=== PATIENT | male | born 1935 ===

== ENCOUNTER 2021-01-19 07:28 | Outpatient (REF) | payer MEDICARE, SELFPAY ==
--- NOTE | 2021-01-19 07:57 | ECG_ITS ---
Test Reason : Z13.9 Blood Pressure : / mmHG Vent. Rate : 060 BPM Atrial Rate : 060 BPM P-R Int : 174 ms QRS Dur : 128 ms QT Int : 436 ms P-R-T Axes : 055 -71 055 degrees QTc Int : 436 ms Normal sinus rhythm Right bundle branch block Left anterior fascicular block Bifascicular block Abnormal ECG No previous ECGs available Referred By: Shahzad Palomares Electronically Signed By:SHEILA WALKER
[2021-01-19 09:26] LABS: Hematocrit 37.8 % (42-52); Hemoglobin 12.2 g/dl (14.0-18.0); Mean Corpuscular HGB Conc 32.3 g/dl (31.0-36.0); Mean Corpuscular Hemoglobin 31.9 pg (27.0-33.0); Mean Platelet Volume 9.5 fL (9.4-12.4); Platelet Count 386 X10*3/uL (160-400); Red Blood Count 3.82 X10*6/uL (4.60-5.80); Red Cell Distribution Width 13.9 % (11.0-16.0); White Blood Count 8.9 X10*3/uL (4.8-10.8)
[2021-01-19 09:50] LABS: Alanine Aminotransferase 128 U/L (0-40); Albumin Level 3.6 g/dL (3.5-5.0); Alkaline Phosphatase 691 U/L (39-117); Anion Gap 12 (12-20); Aspartate Amino Transferase 97 U/L (5-37); Bilirubin Total 1.3 mg/dL (0.0-1.0); Blood Urea Nitrogen 17 mg/dL (9-16); Calcium 9.2 mg/dL (8.4-10.2); Carbon Dioxide 28 mmol/L (22-29); Chloride 106 mmol/L (96-108); Cholesterol 226 mg/dL; Estimated Glomerular Filt Rate 57; Glucose Fasting 89 mg/dL (60-99); HDL Cholesterol 73 mg/dL; LDL Cholesterol Calculated 142 mg/dl; Potassium 4.5 mmol/L (3.3-5.1); Sodium 141 mmol/L (135-145); Total Protein 6.1 g/dL (6.5-8.0); Triglycerides 58 mg/dL
[2021-01-19 10:06] LABS: Thyroid Stimulating Hormone 1.01 uIU/mL (0.32-4.0)
[2021-01-19 11:06] LABS: SLIDE REVIEW MANUAL DIFF
[2021-01-19 11:10] LABS: Band Neutrophils Percent 0 % (3-5); Eosinophils Absolute Manual 0.1 X10*3/UL (0.0-0.8); Eosinophils Percent Manual 1 % (0-4); Lymphocytes Absolute Manual 5.6 X10*3/uL (0.6-4.8); Lymphocytes Percent Manual 63 % (20-40); Monocytes Absolute Manual 0.4 X10*3/uL (0.0-1.2); Monocytes Percent Manual 4 % (2-11); Neutrophils Absolute Manual 2.8 X10*3/uL (2.2-7.9); Neutrophils Percent Manual 32 % (45-73)
[2021-01-19 11:12] LABS: Macrocytosis 1+ (5-14) /OIF; Platelet Estimate NORMAL (NORMAL); Platelet Morphology Comment NORMAL; RBC Morphology NOTED; Smudge Cells PRESENT
== END 2021-01-19 07:29 | disposition home or self-care (01) ==
LOC: HO.LAB 07:28
PROVIDERS: PCP Internal Medicine; Visit Provider Internal Medicine
DX: Z13.9 Encounter for screening, unspecified (principal); E03.9 Hypothyroidism, unspecified; E11.9 Type 2 diabetes mellitus without complications
CPT/HCPCS: 36415; 80053; 80061; 84443; 85007; 85025; 85027; 93005

== ENCOUNTER → 2021-02-21 13:45 | Outpatient (BNVA) | payer MEDICARE, SELFPAY | PROVIDERS: Referring Provider Internal Medicine; Visit Provider Physician Assistant | DX: R10.9 Unspecified abdominal pain (principal); R63.4 Abnormal weight loss; R74.8 Abnormal levels of other serum enzymes | CPT/HCPCS: 99202 ==

== ENCOUNTER 2021-03-08 09:01 | Outpatient (REF) | payer MEDICARE, SELFPAY ==
[2021-03-08 10:35] LABS: MANUAL DIFF FLAG NO
[2021-03-08 10:48] LABS: Basophils Percent Auto 0.4 % (0-2); Eosinophils Absolute Auto 0.3 X10*3/uL (0.0-0.4); Eosinophils Percent Auto 2.8 % (0-4); Hematocrit 35.8 % (42-52); Hemoglobin 11.2 g/dl (14.0-18.0); Imm Gran Abs Auto 0.03 X10*3/uL (0.00-0.03); Imm Gran Pct Auto 0.3 % (0.0-0.4); Mean Corpuscular HGB Conc 31.3 g/dl (31.0-36.0); Mean Corpuscular Volume 99.2 fL (80-98); Mean Platelet Volume 10.2 fL (9.4-12.4); Monocytes Absolute Auto 0.7 X10*3/uL (0.1-1.2); Monocytes Percent Auto 7.7 % (2-11); Neutrophils Absolute Auto 5.4 X10*3/uL (2.0-8.3); Neutrophils Percent Auto 56.8 % (45-73); Platelet Count 334 X10*3/uL (160-400); Red Blood Count 3.61 X10*6/uL (4.60-5.80); Red Cell Distribution Width 14.2 % (11.0-16.0); White Blood Count 9.5 X10*3/uL (4.8-10.8)
[2021-03-08 11:12] LABS: Alanine Aminotransferase 92 U/L (0-40); Albumin Level 3.2 g/dL (3.5-5.0); Alkaline Phosphatase 857 U/L (39-117); Anion Gap 12 (12-20); Aspartate Amino Transferase 104 U/L (5-37); Bilirubin Total 3.3 mg/dL (0.0-1.0); Blood Urea Nitrogen 16 mg/dL (9-16); Calcium 8.5 mg/dL (8.4-10.2); Carbon Dioxide 27 mmol/L (22-29); Chloride 105 mmol/L (96-108); Estimated Glomerular Filt Rate > 60; Gamma Glutamyl Transpeptidase 948 U/L (11-51); Glucose Random 110 mg/dL (60-115); Iron 80 mcg/dL (45-160); Potassium 4.6 mmol/L (3.3-5.1); Sodium 139 mmol/L (135-145)
[2021-03-08 11:26] LABS: Percent Iron Saturation 36 % (15-50); Total Iron Binding Capacity 220 mcg/dL (228-428); Unsaturated Iron Binding 140 ug/dL
[2021-03-08 11:31] LABS: Ferritin 247 ng/mL (20-250); Prostate Specific Antigen Scr 13.12 ng/mL (<0.05-4.0)
[2021-03-10 15:16] LABS: Transglutaminase IgA 1 U/mL
[2021-03-13 21:47] LABS: Endomysial IgA Antibody Negative (Negative)
== END 2021-03-08 09:02 | disposition home or self-care (01) ==
LOC: HO.LAB 09:01
PROVIDERS: PCP Internal Medicine; Visit Provider Physician Assistant
DX: R10.11 Right upper quadrant pain (principal); R19.7 Diarrhea, unspecified; R97.20 Elevated prostate specific antigen [PSA]; R74.8 Abnormal levels of other serum enzymes; D64.9 Anemia, unspecified; Z12.5 Encounter for screening for malignant neoplasm of prostate
CPT/HCPCS: 36415; 80053; 82728; 82977; 83516; 83540; 84153; 85025; 86255; 86256

== ENCOUNTER 2021-03-13 07:59 | Outpatient (REF) | payer MEDICARE, SELFPAY ==
--- NOTE | ~2021-03-13 | CT_ITS ---
EXAMINATION: CT ABDOMEN AND PELVIS WITH CONTRAST CLINICAL INFORMATION: Elevated PSA. COMPARISON: None TECHNIQUE: Multidetector volumetric images were obtained from the superior aspect of the liver through the pubic symphysis following administration 85 mL of Omnipaque 350 intravenous contrast. Sagittal and coronal reformatted images were obtained on the technologist's workstation. Oral contrast: No This CT examination was performed using dose optimization techniques as appropriate, variously including the following: *Automated exposure control *Adjustment of mA and/or kV according to patient size (this includes techniques or standardized protocols for targeted exams where dose is matched to indication/reason for exam; i.e. extremities or head) *Use of iterative reconstruction technique DLP: 297 mGy-cm FINDINGS: LUNG BASES: Minimal atelectatic changes seen in the lung bases. LIVER, GALLBLADDER, AND BILIARY TREE: The liver is normal in size, shape, and attenuation. There is moderate intrahepatic ductal dilatation with a moderate distention of CBD as well. There is a soft tissue density/lesion in the head of the pancreas measuring 1 cm on coronal image 33/4 and axial image 34/3. The gallbladder is distended with no evidence of radiopaque gallstones, gallbladder wall thickening, or obvious pericholecystic inflammatory changes. PANCREAS: The pancreas is unremarkable with normal density. The pancreatic duct is dilated measuring 1.0 cm at the pancreatic head on axial image 31/3. The CBD measures 1 cm at the pancreatic head at the same axial image. The proximal CBD in the khris hepatis measures 1.6 cm on coronal image 27/4 SPLEEN: Unremarkable. ADRENAL GLANDS: Unremarkable. KIDNEYS AND URETERS: The kidneys are normal in size, shape, and attenuation. No hydronephrosis, hydroureter, or calculi seen. No perinephric stranding. There is a mid pole right renal cyst to centimeter and a exophytic cyst lower pole left kidney measuring 3.3 cm. BLADDER: The bladder is unremarkable. GASTROINTESTINAL TRACT: There is moderate stool and gas seen throughout the colon without significant distention. Scattered diverticuli and oral contrast is seen throughout the colon and small bowel loops without distention. No air-fluid levels or free air is seen. The appendix is not visualized with certainty. ABDOMINAL WALL: There is a focal skin thickening above the young licorice measuring a 7 mm in thickness. LYMPH NODES: Normal. VASCULAR: There is atherosclerotic changes of abdominal aorta without aneurysmal dilatation. PELVIC VISCERA: The there is no free fluid or free air. OSSEOUS STRUCTURES: There is vacuum disc phenomenon and degenerative disc changes and spondylosis lower dorsal and lumbar spine. No lytic or sclerotic process seen. 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 CT/CT abdomen pelvis w con IMPRESSION: Moderate constipation without obstruction. Colonic diverticulosis without diverticulitis. Likely pancreatic head mass resulting in dilated common bile duct, pancreatic duct and intrahepatic ducts. Recommend MRCP or ERCP. Bilateral renal cysts.
== END 2021-03-13 08:00 | disposition home or self-care (01) ==
LOC: HO.CT 07:59
PROVIDERS: PCP Internal Medicine; Visit Provider Physician Assistant
DX: R10.9 Unspecified abdominal pain (principal); R97.20 Elevated prostate specific antigen [PSA]; R63.4 Abnormal weight loss
CPT/HCPCS: 74177

== ENCOUNTER → 2021-03-14 13:43 | Outpatient (BNVA) | payer MEDICARE, SELFPAY | PROVIDERS: Visit Provider Physician Assistant | CPT/HCPCS: Q3014 ==

== ENCOUNTER → 2021-03-15 07:56 | Outpatient (BNV) | payer MEDICARE, SELFPAY | PROVIDERS: PCP Internal Medicine; Referring Provider Internal Medicine; Visit Provider Internal Medicine Medical Oncology | DX: K86.89 Other specified diseases of pancreas (principal) | CPT/HCPCS: 99204; 99213; 99214 ==

== ENCOUNTER 2021-03-15 13:56 | Inpatient (IN) | payer MEDICARE, SELFPAY ==
--- NOTE | ~2021-03-15 | FL_ITS ---
EXAMINATION: XR FLUOROSCOPY WITH IMAGES CLINICAL INFORMATION: ERCP COMPARISON: CT 03/13/2021 TECHNIQUE: Fluoroscopy performed by Dr. Atul Hansen. Fluoroscopy time: 371.3 seconds Images: 12 FINDINGS: The endoscope is noted. Cannulation of the common bile duct with injection of contrast. The duct is dilated. Filling defects are seen on initial images. No filling defects seen on final images. FL/FL guidance in OR IMPRESSION: Fluoroscopic guidance for ERCP. Please refer to procedural report for further information.
--- NOTE | ~2021-03-15 | US_ITS ---
EXAMINATION: US ABDOMEN LIMITED CLINICAL INFORMATION: CBD stone. Rule out gallstones. COMPARISON: CT abdomen and pelvis 03/13/2021. TECHNIQUE: Real-time imaging of the right upper quadrant abdominal viscera. FINDINGS: There is a minimal right pleural effusion. PANCREAS: Within the pancreatic head there is a solid mass measuring approximately 1.0 x 0.7 x 1.2 cm in size. On the provided imaging I cannot tell if there may be pancreatic duct dilatation present as was seen on CT scan. LIVER: There is some mild intrahepatic bile duct dilatation as well as areas of increased echogenicity which may be related to residual air from ERCP. The liver is normal in size. The liver contour is normal. Parenchymal echogenicity is normal. No focal hepatic lesion. GALLBLADDER: There is echogenic sludge present as well as calculi. The gallbladder wall is thickened at 5 mm in diameter and there is fluid within the wall of the gallbladder. There is also pericholecystic fluid. There was no tenderness to palpation overlying the gallbladder. COMMON BILE DUCT: Not identified. ERCP done previous day. RIGHT KIDNEY: Within the midpole there is a complex cyst measuring approximately 2.3 x 2.0 x 1.9 cm in size with septation. No hydronephrosis or renal calculi. The kidney measures 11.6 cm in maximum dimension. FREE FLUID: None. US/US abdomen limited IMPRESSION: 1.2 cm pancreatic head solid mass. No definite pancreatic duct dilatation is appreciated on provided images; however, on CT scan of 03/13/2021, pancreatic duct was dilated to 1 cm in diameter. Since that time endoscopy has been performed on 03/16/2021. Intrahepatic bile duct dilatation. Gallbladder with calculi and sludge with gallbladder wall thickening and pericholecystic fluid as well as fluid within the wall of the gallbladder which is consistent with acute cholecystitis. Complex right renal cyst.
[2021-03-15 14:41] VITALS: BP 114/76; PULSE 64; RESP 16; TEMP 36.7; O2SAT 99; BMI 18.7
--- NOTE | 2021-03-15 16:50 | ED.GENADULT ---
HPI - General Adult General Chief complaint: General Medical Stated complaint: direct admit per his dr Time Seen by Provider: 03/15/21 16:50 Source: patient Mode of arrival: ambulatory Limitations: no limitations History of Present Illness HPI narrative: Saw Dr. Wisdom and has a CBD blocked, to be scoped by Dr. Hansen. Patient denies abdominal pain, has a pancreatic head mass. Patient has had a 30lbs weight loss. Onset (ago): day(s) Location: abdomen Severity: mild Exacerbating factors: none Related Data Home Medications Medication Instructions Recorded Confirmed bimatoprost 0.01 % eye drops 1 drp OPHTHALMIC (EYE) DAILY ml 01/16/21 03/15/21 celecoxib 200 mg capsule 200 mg PO DAILY 01/16/21 03/15/21 calcium carbonate 300 mg (750 mg) 300 mg PO BID PRN 03/15/21 03/15/21 chewable tablet (Tums E-X) Allergies Allergy/AdvReac Type Severity Reaction Status Date / Time No Known Allergies Allergy Verified 02/21/21 13:59 [No Known Allergies*] Review of Systems Constitutional: Constitutional: Reports no additional constitutional complaints Eyes: Eyes: Reports no additional eye complaints ENT: Denies dizziness Cardiovascular: Cardiovascular: Reports no additional cardiovascular complaints Respiratory: Respiratory: Reports as per HPI Gastrointestinal: Gastrointestinal: Reports no additional gastrointestinal complaints Musculoskeletal: Musculoskeletal: Reports no additional musculoskeletal complaints Integumentary/Breasts: Skin/Breast: Denies rash Neurologic: Reports system reviewed and no additional complaints, except as documented, Denies dizziness and Denies Sensory deficit (Neuro) Psychiatric: Psychiatric: Denies anxiety PMFSH Past Medical History Medical History Arthritis Surgical History History of cataract extraction History of hip replacement, total History of left inguinal hernia repair Hx of arthroscopic knee surgery Family History Family History Mother Ovarian cancer Father Prostate cancer CVA (cerebral vascular accident) Stenosis of artery Daughter Asthma Social History Social History Household Members Other:: Housing: House Alcohol intake: current Alcohol intake frequency: a few times a month Alcohol type: beer Patient Tobacco Use Status: Former Tobacco user Quit Date: 1965 Cigarette Packs Per Day: 1 Second Hand Smoke Exposure: No Advance Directives: Yes Advance Directives Information Provided: Yes Advance Directives on File: No service: Yes Current occupational status: retired Physical Exam Vital Signs: Vital Signs: Last Vital Signs Temp 98.0 F 03/15/21 14:41 Pulse 64 03/15/21 14:41 Resp 16 03/15/21 14:41 BP 114/76 03/15/21 14:41 Pulse Ox 99 03/15/21 14:41 Body Mass Index 18.7 Const: Other: emaciated male, no acute distress Nutritional Appearance: cachectic Orientation/consciousness: oriented to person and patient oriented x3 Limitations: no limitations HENMT: Head: Yes normal to inspection Ears: external ears normal General nose exam: Normal external nose present Mouth: Normal oral and palatal mucosa present and oropharynx normal Throat: Yes posterior oropharynx normal Eyes: General: appearance normal, both eyes and all related structures Neck: Other: supple Neck: Yes normal visual inspection Chest: Chest palpation & inspection: normal inspection of the chest Resp: Auscultation: clear to auscultation bilaterally Cardio: Jugular venous distension: no JVD Rate: regular rate Rhythm: regular rhythm Heart sounds: S1 normal heart sound present and S2 normal heart sound present GI: Other: severe scaphoid abdomen, no hepatosplenomegaly, non tender Palpation (GI): Soft to palpation, nontender and No hepatosplenomegaly present Auscultation: normal bowel sounds : General: Yes no CVA tenderness Back/Spine/Pelvis: Back: no CVA tenderness Skin: General skin exam: no rashes or lesions noted Neuro: General: oriented to person and patient oriented x3 Cranial nerves: Yes CN's II-XII intact bilaterally Motor exam (neuro): 5/5 motor strength present throughout Sensory Exam: No Sensory deficit (Neuro) Extrem: General: Yes normal to inspection Psych: Appearance: grossly normal Course Reevaluation(s) Reevaluation #1: Patient sent in for dehydration and blocked CBD from pancreatic mass, will be admitted for ERCP Time: 17:08 Medical Decision Making ECG Data Attestation: I personally reviewed and interpreted this ECG as follows: Interpretation: sinus 60, RBBB, no st or twave changes Discharge Plan Discharge Clinical Impression: Pancreatic mass, Common bile duct (CBD) obstruction Patient Disposition: Admitted As Inpatient
--- NOTE | 2021-03-15 16:54 | ECG_ITS ---
Test Reason : WEAKNESS Blood Pressure : / mmHG Vent. Rate : 062 BPM Atrial Rate : 062 BPM P-R Int : 134 ms QRS Dur : 140 ms QT Int : 462 ms P-R-T Axes : -21 -73 065 degrees QTc Int : 468 ms Normal sinus rhythm Right bundle branch block Left anterior fascicular block Bifascicular block Abnormal ECG When compared with ECG of 19-JAN-2021 08:08, No significant change was found Referred By: Jose J Zimmerman Electronically Signed By:SIMEON MCMULLEN MD
--- NOTE | 2021-03-15 17:03 | P.HPHOSP_ITS ---
History of Present Illness Date of Service: 03/15/21 Chief Complaint: Decrease PO intake , weight loss An 86 years old male with PMH of pancreatic mass, CBD obstruction who presents to the hospital complaining of weight loss and decreased appetite for the last few months associated with increased weakness and episodes of nausea. He was referred from Dr. Waite office for ERCP procedure arranged with Dr. Hansen from GI. Review of Systems Review of Systems: No fever, chills but reported weakness and weight loss weakness No chest pain, palpitation No shortness of breath or coughing No abdominal pain, reporting nausea or vomiting No urinary symptoms No any rash or wounds [facility] Medical History Arthritis Family History Mother Ovarian cancer Father Prostate cancer CVA (cerebral vascular accident) Stenosis of artery Daughter Asthma Surgical History (Updated 03/16/21 @ 13:04 by Sarai Downey RN) History of cataract extraction History of hip replacement, total History of left inguinal hernia repair Hx of arthroscopic knee surgery Hx of hernia repair Social History Household Members: Spouse Household Members Other:: Housing: House Do you presently have visiting nurse or other home services: No Alcohol intake: current Alcohol intake frequency: a few times a week Alcohol t ype: beer Patient Tobacco Use Status: Former Tobacco user Quit Date: 1965 Cigarette Packs Per Day: 1 Second Hand Smoke Exposure: No Use of substances other than those prescribed or required for medical reasons: No Currently Displaying Signs/Symptoms of Drug Intoxication Withdrawal: No Have you been hit, kicked, punched, or otherwise hurt by someone within the past year? If so, by whom?: No Do you feel safe in your current relationship?: No Is there a partner from a previous relationship who is making you feel unsafe no w?: No Are you DNR?: No Advance Directives: No Advance Directives Information Provided: No Advance Directives on File: No Do you have thoughts of harming others: None Do you have a plan to hurt others: No Plan Recently lost weight without trying: Yes How much weight loss: 24-33 pounds Eating poorly because of decreased appetite: Yes Nutrition screen score: 6 Nutrition Risks: Poor intake 0-25% >4 days Poor oral hygiene: No service: Yes Current occupational status: retired Meds Allergies Allergy/AdvReac Type Severity Reaction Status Date / Time No Known Allergies Allergy Verified 02/21/21 13:59 [No Known Allergies*] Active Medications: Current Medications Generic Name Dose Route Start Last Admin Trade Name Freq PRN Reason Stop Dose Admin Sodium Chloride 1,000 mls @ 250 mls/hr 03/15/21 17:00 Ns IVCONT 03/15/21 20:59 .Q4H [facility] Pharmacy Consult 1 each 03/15/21 17:01 Consult Rx Perform Med Rec MISCELLANE ONCE PRN Consult order Home Medications Medication Instructions Recorded Confirmed Last Taken Type bimatoprost 0.01 % eye drops 1 drp OPHTHALMIC (EYE) DAILY ml 01/16/21 03/15/21 03/13/21 History celecoxib 200 mg capsule 200 mg PO DAILY 01/16/21 03/15/21 03/13/21 History calcium carbonate 300 mg (750 mg) 300 mg PO BID PRN 03/15/21 03/15/21 Unknown History chewable tablet (Tums E-X) Physical Exam Vital Signs and Narrative: Vital Signs: Last Vital Signs Temp 98.0 F 03/15/21 14:41 Pulse 64 03/15/21 14:41 Resp 16 03/15/21 14:41 BP 114/76 03/15/21 14:41 Pulse Ox 99 03/15/21 14:41 Body Mass Index 18.7 Results Labs CBC and Chem 7: 03/16/21 05:57 03/16/21 05:57 Assessment and Plan (1) Common bile duct (CBD) obstruction: Status: Acute (2) Pancreatic lesion: Status: Acute An 86 years old male with PMH of pancreatic mass, CBD obstruction who presents to the hospital complaining of weight loss and decreased appetite for the last few months associated with increased weakness and episodes of nausea. Pancreatic lesion CBD obstruction Reporting decreased p.o. intake and episodes of nausea and vomiting To get GI consult for ERCP DVT PPx SCDs Quality Stroke Does the patient have a stroke diagnosis?: No VTE Prior VTE?: No VTE Risk Level:: Medical - moderate - high VTE Device Contraindication: N/A - Device Ordered VTE Drug Contraindication: Treatment Not Indicated
[2021-03-15] MEDS: 0.9 % Sodium Chloride 1,000 ML 250 ML IVCONT (17:20)
--- NOTE | 2021-03-15 17:24 | PHA.MEDREC ---
Pharmacy Consult ? Medication Reconciliation Pharmacy has completed the medication reconciliation.
[2021-03-15 18:02] LABS: Lipase 39 U/L (8-78)
[2021-03-15 18:26] VITALS: BP 134/69; PULSE 72; RESP 18; O2SAT 99
[2021-03-15 18:38] LABS: Influenza A PCR NEGATIVE (Negative); Influenza B PCR NEGATIVE (Negative); Resp Syncy Virus RNA Qual PCR NEGATIVE (Negative); SARS COV2 PCR INHOUSE NEGATIVE (Negative)
[2021-03-15 18:57] VITALS: BP 126/63; PULSE 71; RESP 20; TEMP 36.3; O2SAT 99
--- NOTE | 2021-03-15 21:52 | PM.EVENT ---
Event Note Date of Service: 03/15/21 Event Note: GI attempted to see patient x2 earlier today, not in Oncology or ER discussed with Stacey Waite and Noa. ERCP scheduled for 03/16 Full consult to follow.
[2021-03-15 23:44] VITALS: BP 116/63; PULSE 68; RESP 16; TEMP 36.2; O2SAT 99
[2021-03-16] VITALS (11 sets, daily range): BP systolic 96–127; BP diastolic 56–70; PULSE 60–70; RESP 12–18; TEMP 36.2–37.1; O2SAT 97–100; BMI 18.7
[2021-03-16] MEDS: 0.9 % Sodium Chloride Flush 3 ML SYRINGE IVFLUSH ×2 (01:07→07:29)
[2021-03-16 06:14] LABS: Hematocrit 32.5 % (42-52); Hemoglobin 10.7 g/dl (14.0-18.0); Mean Corpuscular HGB Conc 32.9 g/dl (31.0-36.0); Mean Corpuscular Hemoglobin 32.4 pg (27.0-33.0); Mean Corpuscular Volume 98.5 fL (80-98); Mean Platelet Volume 9.6 fL (9.4-12.4); Platelet Count 284 X10*3/uL (160-400); White Blood Count 7.5 X10*3/uL (4.8-10.8)
[2021-03-16 06:22] LABS: Prothrombin Time 11.7 SEC (9.9-13.0)
[2021-03-16 07:14] LABS: Anion Gap 8 (12-20); Blood Urea Nitrogen 14 mg/dL (9-16); Calcium 8.1 mg/dL (8.4-10.2); Carbon Dioxide 28 mmol/L (22-29); Chloride 107 mmol/L (96-108); Creatinine Clr Calc Pharmacy 47.1; Estimated Glomerular Filt Rate > 60; Glucose Random 86 mg/dL (60-115); Potassium 4.2 mmol/L (3.3-5.1); Sodium 139 mmol/L (135-145)
[2021-03-16 07:56] LABS: Alanine Aminotransferase 75 U/L (0-40); Albumin Level 2.8 g/dL (3.5-5.0); Alkaline Phosphatase 774 U/L (39-117); Aspartate Amino Transferase 92 U/L (5-37); Bilirubin Direct 1.6 mg/dL (0.0-0.5); Bilirubin Total 2.3 mg/dL (0.0-1.0); Total Protein 5.4 g/dL (6.5-8.0)
--- NOTE | 2021-03-16 08:54 | MHC.SHP ---
Pre-Procedural Eval Section A Date of Service: 03/16/21 The patient is an INPATIENT: Yes Changes since office visit: No Cold of Flu in the past 2 weeks, No New Medical Problems, No Changes in Medication and No Patient answered all questions The History & Physical has been completed within 30 days and I have reviewed it.: Yes Section B Chief Complaint: FTT, decrease po intake, pancreatic mass Allergies: Allergies Allergy/AdvReac Type Severity Reaction Status Date / Time No Known Allergies Allergy Verified 02/21/21 13:59 [No Known Allergies*] Plan I have reviewed the history and physical and performed a pertinent physical examination on my patient. No changes have occurred unless specified.
--- NOTE | 2021-03-16 10:20 | P.CDIC_ITS ---
CDI Concurrent Query Service Date: 03/16/21 Documentation Clarification: Please clarify if you are treating a proba ble/suspected/likely or confirmed: - Malnutrition (specify if mild, moderate, or severe) - Protein calorie malnutrition (specify if mild, moderate, or severe) - Cachexia without malnutrition - No nutritional deficiency - Other (please specify) - Unable to determine Use of terms such as suspected, likely, concern for, or probable (associated with a specific diagnosis that is being evaluated, monitored, or treated as if it exists) are acceptable and can be coded in the inpatient setting, when documented at the time of discharge. Provider Response: Severe Protein-Calorie Malnutrition PLEASE DO NOT DELETE/MODIFY EXISTING CONTENT Additional information is needed in order to code to the highest accuracy and appropriate Severity of Illness (SOI). Please clarify the information noted below in your progress notes and discharge summary. Risk Factors/Clinical Indicators/Treatments HT 6'2 WT 66.075 kg BMI 18.7 Per MD progress notes, lost 30 pounds, emaciated, cachectic CDS: Fay Curtis RN Contact Number: [phone] Please Review the information above and exercise your independent professional judgment in responding to the query. If you concur, pleas document in the PROGRESS NOTES and DISCHARGE SUMMARY. If you do not agree with the query, please document in the query above. THIS QUERY IS PART OF THE PERMANENT MEDICAL RECORD
[2021-03-16] MEDS: Dextrose 5 % and 0.9 % NaCl 1,000 ML 75 ML IVCONT (10:56)
--- NOTE | 2021-03-16 11:56 | MHC.CLN ---
PT IS SEVERELY MALNOURISHED PT WITH 30# WT LOSS X 6 MONTHS, TRIGGERS FOR 17% SIGNIFICANT WT LOSS WITH CHRONIC POOR PO INTAKE X 6 MONTHS. PT REPORTED UBW 175# DIET IS CURRENTLY NPO AWAITING PROCEDURE PT REPORTS HE DRINKS BOOST AT HOME. BREAKFAST IS HIS BEST MEAL. PT STRUGGLES WITH APPETITE IN EVENING. PT RECEPTIVE TO RECEIVING SUPPLEMENTS WHILE IN HOSPITAL WHEN DIET TO ADVANCE; RECOMMEND ENSURE TID TO INCREASE KCALS MONITOR PO INTAKE CLOSELY SEE ALSO CLINICAL NUTRITION ASSESSMENT
--- NOTE | 2021-03-16 12:20 | MHC.CM.PN ---
PT REPORTS HE LIVES AT HOME WITH HIS AND IS INDEPENDENT WITH ALL CARE AT BASELINE. PT DENIES USING DME OR IN HOME SERVICES. PT REPORTS HIS PCP IS ANTONIA VILLA AND SAYS HE HAS A HCP NAMING HIS HIS AGENT. PT REPORTS HE DID RECEIVE THE [employer] VACCINE FOR COVID-19 AND HIS LAST DOSE WAS September. IMM DELIVERED CURRENT DC PLAN IS HOME FAMILY TO TRANSPORT
[2021-03-16] MEDS: levoFLOXacin/D5W 500 MG/100 ML PIGGYBACK 100 MG IV (12:59)
--- NOTE | 2021-03-16 13:37 | CONS_ITS ---
DATE OF SERVICE: 03/16/2021 REFERRING PHYSICIAN: Yobani Latham MD ADDITIONAL REFERRING PROVIDER: Celestina Waite MD. REASON FOR CONSULTATION: Biliary obstruction. HISTORY OF PRESENT ILLNESS: The patient is a pleasant 86-year-old man, who was admitted to the hospital from the Oncology Clinic, where he had been evaluated for a probable pancreatic head mass and biliary obstruction. He states for the last 3 months, he has had intermittent abdominal cramping with lower abdominal discomfort and anorexia. There has been no nausea, vomiting, fevers or chills. He estimates he has lost over 30 pounds during this time. He was evaluated by his primary care provider with laboratory studies earlier in January, which documented elevation of his liver function tests with an alkaline phosphatase of 691, bilirubin of 1.3, and mild transaminitis. Subsequently, imaging was obtained with a CT scan on March 13, which is reviewed. This is interpreted as showing likely pancreatic head mass with dilation of the common bile duct and pancreatic duct. PAST MEDICAL HISTORY: Arthritis. MEDICATIONS: At home, Celebrex. PAST SURGICAL HISTORY: Includes cataracts, hip replacement, inguinal hernia repair on the left, and knee surgery. ALLERGIES: THERE ARE NONE REPORTED. FAMILY HISTORY: This is negative for GI malignancy. SOCIAL HISTORY: The patient is a former smoker, but does not smoke currently. He was a light alcohol drinker, but has cut back on this because he thought he might have an ulcer. REVIEW OF SYSTEMS: SKIN: No pruritus. HEENT: Negative. CARDIOPULMONARY: He denies shortness of breath or chest pain. GASTROINTESTINAL: As above. GENITOURINARY: Negative. NEUROPSYCHIATRIC: Negative. PHYSICAL EXAMINATION: GENERAL: Shows a pleasant male, lying in bed. VITAL SIGNS: Reviewed in the electronic medical record and are stable. SKIN: Anicteric. HEENT: Shows no scleral icterus. NECK: Without lymphadenopathy or thyromegaly. LUNGS: Clear. HEART: Shows a regular rate and rhythm. S1, S2. No murmur. ABDOMEN: Soft without focal masses or tenderness. Bowel sounds are present. No organomegaly is noted. EXTREMITIES: Without edema. LABORATORY DATA: Shows a white blood cell count of 7.5, hematocrit 32.5. Chemistries show elevation of his liver tests as described above. CT scanning is reviewed and appears to show biliary obstruction at the level of the head of the pancreas. ASSESSMENT AND PLAN: His presentation is consistent with a pancreatic head mass causing obstruction of both the biliary and pancreatic ductal system. This is suspicious for adenocarcinoma. I recommended today that he undergo ERCP with stent placement and at that time, brushings can be obtained to further evaluate for malignancy. We discussed risks and benefits of the procedure today. He understands these and agrees to proceed. MD ELIE Biggs/ANNIE / [id number]
--- NOTE | 2021-03-16 14:28 | HO.ANESPROP2 ---
[facility] Active Problems Active Problems: All Active Problems (Updated 03/15/21 @ 17:09 by Jos eJ Zimmerman MD) Abdominal pain (Acute) Weight loss (Acute) Elevated PSA (Acute) Anemia (Acute) Elevated alkaline phosphatase level (Acute) Abnormal CT of the abdomen (Acute) Pancreatic mass (Acute) Pancreatic lesion (Acute) Common bile duct (CBD) obstruction (Acute) Arthritis (Acute) Past Medical History Medical History Arthritis Family History Family History Mother Ovarian cancer Father Prostate cancer CVA (cerebral vascular accident) Stenosis of artery Daughter Asthma Surgical History Surgical History (Updated 03/16/21 @ 13:04 by Sarai Downey RN) History of cataract extraction History of hip replacement, total History of left inguinal hernia repair Hx of arthroscopic knee surgery Hx of hernia repair Social History Social History Household Members: Spouse Household Members Other:: Housing: House Do you presently have visiting nurse or other home services: No Alcohol intake: current Alcohol intake frequency: a few times a week Alcohol type: beer Patient Tobacco Use Status: Former Tobacco user Quit Date: 1967 Cigarette Packs Per Day: 1 Second Hand Smoke Exposure: No Use of substances other than those prescribed or required for medical reasons: No Currently Displaying Signs/Symptoms of Drug Intoxication Withdrawal: No Have you been hit, kicked, punched, or otherwise hurt by someone within the past year? If so, by whom?: No Do you feel safe in your current relationship?: No Is there a partner from a previous relationship who is making you feel unsafe now?: No Are you DNR?: No Advance Directives: No Advance Directives Information Provided: No Advance Directives on File: No Do you have thoughts of harming others: None Do you have a plan to hurt others: No Plan Recently lost weight without trying: Yes How much weight loss: 24-33 pounds Eating poorly because of decreased appetite: Yes Nutrition screen score: 6 Nutrition Risks: Poor intake 0-25% >4 days Poor oral hygiene: No service: Yes Current occupational status: retired Meds Allergies Allergy/AdvReac Type Severity Reaction Status Date / Time No Known Allergies Allergy Verified 02/21/21 13:59 [No Known Allergies*] Active Medications: Current Medications Generic Name Dose Route Start Last Admin Trade Name Renay PRN Reason Stop Dose Admin Acetaminophen 650 mg 03/15/21 17:17 Acetaminophen 325 Mg Tablet PO Q6H PRN Pain, Mild (Pain Scale 1-3) Dextrose/Sodium Chloride 1,000 mls @ 75 mls/hr 03/16/21 10:45 03/16/21 10:56 D5ns IVCONT 75 mls/hr .[id number] NASIR Administration Ondansetron HCl 4 mg 03/15/21 17:17 Ondansetron Hcl 4 Mg/2 Ml Vial IVPUSH Q8H PRN Nausea and Vomiting Pharmacy Consult 1 each 03/15/21 17:01 Consult Rx Perform Med Rec MISCELLANE ONCE PRN Consult order Sodium Chloride 3 ml 03/16/21 00:00 03/16/21 07:29 0.9 % Sodium Chloride Flush 3 Ml Syringe IVFLUSH 3 ml QSHIFT NASIR Administration Home Medications Medication Instructions Recorded Confirmed Last Taken Type bimatoprost 0.01 % eye drops 1 drp OPHTHALMIC (EYE) DAILY ml 01/16/21 03/15/21 03/13/21 History celecoxib 200 mg capsule 200 mg PO DAILY 01/16/21 03/15/21 03/13/21 History calcium carbonate 300 mg (750 mg) 300 mg PO BID PRN 03/15/21 03/15/21 Unknown History chewable tablet (Tums E-X) Exam Exam Date and Time: March 16, 2021 1428 Height,Weight and Vital Signs: Height 6 ft 2 in Weight 66.075 kg Last Vital Signs Temp 98.8 F 03/16/21 13:02 Pulse 66 03/16/21 13:02 Resp 16 03/16/21 13:02 BP 124/63 03/16/21 13:02 Pulse Ox 98 03/16/21 13:02 Pertinent Lab Results Pertinent Lab Results: Laboratory Tests 03/15/21 03/15/21 03/16/21 17:19 17:19 05:57 WBC 7.5 RBC 3.30 L Hgb 10.7 L Hct 32.5 L MCV 98.5 H MCH 32.4 MCHC 32.9 RDW 14.0 Plt Count 284 MPV 9.6 Absolute Nucleated RBC 0.000 Nucleated RBC % (auto) 0.0 PT INR Sodium Potassium Chloride Carbon Dioxide Anion Gap BUN Creatinine Estim Creat Clear Calc Estimated GFR Random Glucose Calcium Total Bilirubin Direct Bilirubin AST ALT Alkaline Phosphatase Total Protein Albumin Lipase 39 Coronavirus (PCR) NEGATIVE Influenza Type A (PCR) NEGATIVE Influenza Type B (PCR) NEGATIVE RSV RNA Qual (PCR) NEGATIVE 03/16/21 03/16/21 05:57 05:57 WBC RBC Hgb Hct MCV MCH MCHC RDW Plt Count MPV Absolute Nucleated RBC Nucleated RBC % (auto) PT 11.7 INR 1.0 Sodium 139 Potassium 4.2 Chloride 107 Carbon Dioxide 28 Anion Gap 8 L BUN 14 Creatinine 1.09 Estim Creat Clear Calc 47.1 Estimated GFR > 60 Random Glucose 86 Calcium 8.1 L D Total Bilirubin 2.3 H Direct Bilirubin 1.6 H AST 92 H ALT 75 H Alkaline Phosphatase 774 H Total Protein 5.4 L Albumin 2.8 L Lipase Coronavirus (PCR) Influenza Type A (PCR) Influenza Type B (PCR) RSV RNA Qual (PCR) Airway Mallampati Class: II TM Dist: >3cm Neck ROM: Full
[2021-03-16] MEDS: Lactated Ringers 1,000 ML 100 ML IVCONT (14:43)
--- NOTE | 2021-03-16 16:28 | PM.OP ---
Brief Operative Note Date of Service: 03/16/21 Pre-op diagnosis: biliary obstruction Post-op diagnosis: same (cbd stone) Surgeon: Atul Hansen Anesthesia: MAC Was an Balance Wheel Screw Hole Tapper used for this Procedure?: No Estimated blood loss (mL): 5 Pathology: other (bile duct bx and brushing) Condition: stable Disposition: PACU
--- NOTE | 2021-03-16 16:29 | PM.EVENT ---
Event Note Date of Service: 03/16/21 Event Note: ERCP dictated no stricture 10 mm filling defect on cholangiography stone removed after spincterotomy excellent drainage of clear bile distal cbd brushed and bxd. advance diet fu bx/brushings outpatient mri of pancreas
--- NOTE | 2021-03-16 16:34 | HO.PM.IMPN ---
Subjective Subjective Date of Service: 03/16/21 Interval History: the patient was seen and evaluated this morning Laying in bed, feels comfortable Waiting for the ERCP procedure Denies any fever, chills or shortness of breath No reported other overnight events. Systemic review: No fever, chills or weakness, no appetite No chest pain, palpitation No shortness of breath or coughing No abdominal pain, nausea or vomiting No urinary symptoms No any rash or wounds Physical Exam Vital Signs: Vital Signs: Last Vital Signs Temp 97.7 F 03/16/21 16:23 Pulse 70 03/16/21 16:28 Resp 16 03/16/21 16:28 BP 124/66 03/16/21 16:28 Pulse Ox 100 03/16/21 16:28 Body Mass Index 18.7 Const: Other: Constitutional : Alert, oriented, not in distress, malnourished Neck : Normal inspection, Supple Cardiovascular : RRR, S1 S2, no lower extremity edema Respiratory : Good bilateral air entry, no crackles, wheezes or rhonchi Gastrointestinal: soft, lax, Normal bowel sounds, Non tender Skin : Warm, Dry Neurological : Alert & oriented x3, No focal deficit Objective Data Current Medications Generic Name Dose Route Start Last Admin Trade Name Freq PRN Reason Stop Dose Admin Acetaminophen 650 mg 03/15/21 17:17 Acetaminophen 325 Mg Tablet PO Q6H PRN Pain, Mild (Pain Scale 1-3) Fentanyl 25 mcg 03/16/21 14:29 Fentanyl Citrate/Pf 100 Mcg/2 Ml Vial IVPUSH Q5M PRN Pain, Moderate (Pain Scale 4-6 Protocol Dextrose/Sodium Chloride 1,000 mls @ 75 mls/hr 03/16/21 10:45 03/16/21 10:56 D5ns IVCONT 75 mls/hr .[id number] NASIR Administration Lactated Ringer's 1,000 mls @ 100 mls/hr 03/16/21 14:30 03/16/21 14:43 Lr IVCONT 100 mls/hr .Q10H NASIR Administration Ondansetron HCl 4 mg 03/15/21 17:17 Ondansetron Hcl 4 Mg/2 Ml Vial IVPUSH Q8H PRN Nausea and Vomiting Ondansetron HCl 4 mg 03/16/21 14:29 Ondansetron Hcl 4 Mg/2 Ml Vial IVPUSH ONCE PRN Nausea and Vomiting Oxycodone HCl 5 mg 03/16/21 14:29 Oxycodone Hcl Immed Release 5 Mg Tablet PO ONCE PRN Pain, Severe (Pain Scale 7-10) Pharmacy Consult 1 each 03/15/21 17:01 Consult Rx Perform Med Rec MISCELLANE ONCE PRN Consult order Sodium Chloride 3 ml 03/16/21 00:00 03/16/21 07:29 0.9 % Sodium Chloride Flush 3 Ml Syringe IVFLUSH 3 ml [facility] Administration Labs CBC & Chem 7: 03/16/21 05:57 03/16/21 05:57 Labs: Laboratory Results - last 24 hr 03/15/21 03/15/21 03/16/21 17:19 17:19 05:57 MCV 98.5 H MCH 32.4 MCHC 32.9 RDW 14.0 Plt Count 284 MPV 9.6 Absolute Nucleated RBC 0.000 Nucleated RBC % (auto) 0.0 PT INR Anion Gap Estim Creat Clear Calc Estimated GFR Random Glucose Calcium Total Bilirubin Direct Bilirubin AST ALT Alkaline Phosphatase Total Protein Albumin Lipase 39 Coronavirus (PCR) NEGATIVE Influenza Type A (PCR) NEGATIVE Influenza Type B (PCR) NEGATIVE RSV RNA Qual (PCR) NEGATIVE 03/16/21 03/16/21 05:57 05:57 MCV MCH MCHC RDW Plt Count MPV Absolute Nucleated RBC Nucleated RBC % (auto) PT 11.7 INR 1.0 Anion Gap 8 L Estim Creat Clear Calc 47.1 Estimated GFR > 60 Random Glucose 86 Calcium 8.1 L D Total Bilirubin 2.3 H Direct Bilirubin 1.6 H AST 92 H ALT 75 H Alkaline Phosphatase 774 H Total Protein 5.4 L Albumin 2.8 L Lipase Coronavirus (PCR) Influenza Type A (PCR) Influenza Type B (PCR) RSV RNA Qual (PCR) Assessment and Plan (1) Weight loss: Status: Acute (2) Pancreatic mass: Status: Acute (3) Common bile duct (CBD) obstruction: Status: Acute (4) Severe malnutrition: Status: Acute Assessment and Plan: An 86 years old male with PMH of pancreatic mass, CBD obstruction who presents to the hospital complaining of weight loss and decreased appetite for the last few months associated with increased weakness and episodes of nausea. Pancreatic lesion CBD obstruction ERCP successful with stent placement and removal of stone Start diet [facility] [place] biopsy pending To do outpatient MRI pancreas Severe malnutrition Start Ensure Blood Or Blood Bank Technician assessment DVT PPx SCDs Quality Stroke Does the patient have a stroke diagnosis?: No VTE Prior VTE?: No VTE Risk Level:: Medical - moderate - high VTE Device Contraindication: N/A - Device Ordered VTE Drug Contraindication: Treatment Not Indicated
--- NOTE | 2021-03-16 19:03 | OP_ITS ---
SURGEON: Atul Hansen MD PREOPERATIVE DIAGNOSIS: POSTOPERATIVE DIAGNOSIS: PROCEDURE PERFORMED: ERCP with sphincterotomy and extraction of common bile duct stone with brushings and biopsy. ESTIMATED BLOOD LOSS: COMPLICATIONS: ANESTHESIA: ASSISTANTS: SPECIMENS: MEDICATIONS: General anesthesia. DESCRIPTION OF PROCEDURE: History and physical performed. The risks and benefits of the procedure were explained to the patient. Informed consent was obtained. The patient was placed in left lateral decubitus position. The Olympus video duodenoscope was introduced into the esophagus, stomach, and duodenum. Examination was performed and the scope was removed. He tolerated the procedure well and was returned to recovery area in stable condition. FINDINGS: ENDOSCOPY: Limited examination of the esophagus, stomach, and duodenum was normal. The major papilla appeared normal. The common bile duct was cannulated with a guidewire and sphincterotome. Injection of dye showed no stricture. The filling defect was identified consistent with a common bile duct stone. The common bile duct was dilated consistent with the findings on CT scanning. A sphincterotomy was performed to approximately 10 mm with no immediate complications and a 12 mm extraction balloon was used to remove 1 common bile duct stone. No other stones were seen. Occlusion cholangiography showed good filling and drainage of the common bile duct. The cystic duct was not seen to fill. No pancreatogram was attempted or obtained. The distal bile duct was brushed and a biopsy forceps was used to obtain a single biopsy from the distal bile duct. IMPRESSION: Common bile duct stone. RECOMMENDATIONS: 1. Follow up the biopsy results and brushings. 2. Consider outpatient MRCP once this sphincterotomy has had a chance to heal. MD ELIE Biggs/ANNIE / [id number]
[2021-03-17] MEDS: 0.9 % Sodium Chloride Flush 3 ML SYRINGE IVFLUSH ×2 (00:18→09:25)
[2021-03-17 06:21] LABS: Hematocrit 33.4 % (42-52); Hemoglobin 10.6 g/dl (14.0-18.0); Mean Corpuscular HGB Conc 31.7 g/dl (31.0-36.0); Mean Corpuscular Hemoglobin 31.5 pg (27.0-33.0); Mean Corpuscular Volume 99.1 fL (80-98); Mean Platelet Volume 9.9 fL (9.4-12.4); Platelet Count 309 X10*3/uL (160-400); Red Blood Count 3.37 X10*6/uL (4.60-5.80); Red Cell Distribution Width 13.9 % (11.0-16.0); White Blood Count 7.2 X10*3/uL (4.8-10.8)
[2021-03-17 06:47] LABS: Alanine Aminotransferase 60 U/L (0-40); Albumin Level 2.7 g/dL (3.5-5.0); Alkaline Phosphatase 709 U/L (39-117); Aspartate Amino Transferase 57 U/L (5-37); Bilirubin Direct 1.1 mg/dL (0.0-0.5); Bilirubin Total 1.6 mg/dL (0.0-1.0); Total Protein 5.2 g/dL (6.5-8.0)
[2021-03-17 07:36] VITALS: BP 103/57; PULSE 56; RESP 17; TEMP 36; O2SAT 99
--- NOTE | 2021-03-17 09:29 | MHC.CM.PN ---
PATIENT IS DISCHARGED HOME WITH NO SERVICE NEEDS. FAMILY TO TRANSPORT. RN AWARE OF PLAN.
--- NOTE | 2021-03-17 12:22 | PM.DS ---
DS: Providers Provider Date of Service: 03/17/21 Date of admission: 03/15/21 17:17 Primary care physician: Shahzad Palomares MD Consults: 03/15/21 17:19 Consult to Gastroenterology Routine Consulting Provider: Atul Hansen Reason for consultation: pancreatic mass\CBD narrowing For ERCP as planned DS: Diagnosis Discharge Diagnosis (1) Weight loss: Status: Acute (2) Pancreatic mass: Status: Acute (3) Common bile duct (CBD) obstruction: Status: Acute (4) Severe malnutrition: Status: Acute DS: Medications Discharge Medications Home Medications: Home Medications Medication Instructions Recorded Confirmed bimatoprost 0.01 % eye drops 1 drp OPHTHALMIC (EYE) DAILY ml 01/16/21 03/15/21 celecoxib 200 mg capsule 200 mg PO DAILY 01/16/21 03/15/21 calcium carbonate 300 mg (750 mg) 300 mg PO BID PRN 03/15/21 03/15/21 chewable tablet (Tums E-X) Previous Rx's Medication Instructions Recorded tamsulosin 0.4 mg capsule 0.4 mg PO DAILY 30 Days #30 cap 03/17/21 DS: Summary Hospital Course Hospital Course: Admission note HPI An 86 years old male with PMH of pancreatic mass, CBD obstruction who presents to the hospital complaining of weight loss and decreased appetite for the last few months associated with increased weakness and episodes of nausea. He was referred from Dr. Waite office for ERCP procedure arranged with Dr. Hansen from GI. Hospital course Patient was admitted for planned ERCP for CBD obstruction. The procedure was done the next morning with removal of stone and placement of stent. Brushing was done with biopsies still pending. Plan is to follow-up as outpatient with Dr. Hansen for the biopsy result and to do pancreatic MRI. To follow-up with Oncology as outpatient as well. Time Spent with Patient Time attestation: Total time spent providing and/or coordinating discharge services: Discharge coordination time: Greater than 30 minutes Quality: Stroke Does the patient have a stroke diagnosis?: No Physical Exam Vital Signs: Vital Signs: Last Vital Signs Temp 96.8 F 03/17/21 07:36 Pulse 56 03/17/21 07:36 Resp 17 03/17/21 07:36 BP 103/57 L 03/17/21 07:36 Pulse Ox 99 03/17/21 07:36 Body Mass Index 18.7 Const: Other: Constitutional : Alert, oriented, not in distress, malnourished Neck : Normal inspection, Supple Cardiovascular : RRR, S1 S2, no lower extremity edema Respiratory : Good bilateral air entry, no crackles, wheezes or rhonchi Gastrointestinal: soft, lax, Normal bowel sounds, Non tender Skin : Warm, Dry Neurological : Alert & oriented x3, No focal deficit DS: Data Data Completed and Pending Pending studies at discharge: Pending at discharge 03/16/21 16:25 Surgical [PTH] Routine Cytology [PTH] Routine Labs on day of discharge: Laboratory Results - last 24 hr 03/17/21 03/17/21 05:37 05:37 WBC 7.2 RBC 3.37 L Hgb 10.6 L Hct 33.4 L MCV 99.1 H MCH 31.5 MCHC 31.7 RDW 13.9 Plt Count 309 MPV 9.9 Absolute Nucleated RBC 0.000 Nucleated RBC % (auto) 0.0 Total Bilirubin 1.6 H Direct Bilirubin 1.1 H AST 57 H ALT 60 H Alkaline Phosphatase 709 H Total Protein 5.2 L Albumin 2.7 L Discharge Plan Discharge Patient Disposition: Home, Self-Care Discharge Diagnosis: Pancreatic lesion common bile duct obstruction Referrals: Physician,Unknown [Physician] - 1 Week Discharge Medications: New tamsulosin 0.4 mg Capsule 0.4 mg PO DAILY 30 Days Qty: 30 RF: 0 Continued calcium carbonate [Tums E-X] 300 mg (750 mg) Tablet,Chewable 300 mg PO BID PRN (Reason: Indigestion) RF: 0 celecoxib 200 mg capsule 200 mg PO DAILY RF: 0 bimatoprost 0.01 % drops 1 drp ophthalmic (eye) DAILY RF: 0 Discharge Orders: Discharge Order (Routine); Ordered 03/17/21 Ordered By: Yobani Latham Diet: advance to usual diet Activity on Discharge: As tolerated Stand Alone Forms: Patient Portal Discharge page Care Plan Goals: Read below Health Concerns: Read below Plan of Treatment: ERCP done with placement of a stent in your common bile duct and removal of a stone. Assessment: To follow-up with Dr. Hansen office for biopsy results and to do pancreas MRI.
== END 2021-03-17 14:34 | disposition home or self-care (01) | DRG 444 ==
LOC: HO.ED 17:09 → HO.EDOVER 17:34 → HO.S3 17:40
PROVIDERS: Internal Medicine Gastroenterology; Admitting Provider Student in an Organized Health Care Education/Training Program; Emergency Provider Emergency Medicine; PCP Internal Medicine; Visit Provider Student in an Organized Health Care Education/Training Program
PROC: 0FC98ZZ Extirpation of Matter from Common Bile Duct, Via Natural or Artificial Opening Endoscopic (ICD-10-PCS; CPT 43260; principal; 2021-03-16 13:50)
DX: K80.51 Calculus of bile duct without cholangitis or cholecystitis with obstruction (principal); E43 Unspecified severe protein-calorie malnutrition; Z68.1 Body mass index [BMI] 19.9 or less, adult; K86.9 Disease of pancreas, unspecified; Z96.642 Presence of left artificial hip joint; Z20.822 Contact with and (suspected) exposure to COVID-19; Z87.891 Personal history of nicotine dependence; Z79.1 Long term (current) use of non-steroidal anti-inflammatories (NSAID); Z79.899 Other long term (current) drug therapy
CPT/HCPCS: 0241U; 36415; 74177; 76705; 80048; 80076; 83690; 85027; 85610; 88112; 88305; 93005; 99285; C1769; J1956; J2250; J2370; J2405; J3010; Q9967

== ENCOUNTER → 2021-03-20 08:20 | Outpatient (BNVA) | payer MEDICARE, SELFPAY | PROVIDERS: PCP Internal Medicine; Visit Provider Physician Assistant | CPT/HCPCS: Q3014 ==

== ENCOUNTER 2021-07-19 10:50 | Outpatient (REF) | payer MEDICARE, SELFPAY ==
[2021-07-19 13:58] LABS: Hematocrit 38.5 % (42.0-52.0); Hemoglobin 12.1 g/dl (14.0-18.0); Mean Corpuscular HGB Conc 31.4 g/dl (31.0-36.0); Mean Corpuscular Volume 98.7 fL (80.0-98.0); Platelet Count 240 X10*3/uL (160-400); Red Cell Distribution Width 13.6 % (11.0-16.0)
[2021-07-19 14:37] LABS: Alanine Aminotransferase 14 U/L (0-40); Albumin Level 3.9 g/dL (3.5-5.0); Alkaline Phosphatase 73 U/L (39-117); Aspartate Amino Transferase 23 U/L (5-37); Bilirubin Direct 0.3 mg/dL (0.0-0.5); Bilirubin Total 0.8 mg/dL (0.0-1.0); Blood Urea Nitrogen 24 mg/dL (9-16); Estimated Glomerular Filt Rate 54; Total Protein 6.3 g/dL (6.5-8.0)
[2021-07-24 11:45] LABS: Carbohydrate Antigen 19-9 15 U/mL (<34)
== END 2021-07-19 10:51 | disposition home or self-care (01) ==
LOC: HO.10HDL 10:50
PROVIDERS: Visit Provider Internal Medicine Gastroenterology
DX: R94.8 Abnormal results of function studies of other organs and systems (principal)
CPT/HCPCS: 36415; 80076; 82565; 84520; 85027; 86301

== ENCOUNTER 2023-02-07 12:06 | Outpatient (REF) | payer MEDICARE, SELFPAY | END 2023-02-07 12:07 | disposition home or self-care (01) | LOC: HO.LAB 12:06 | PROVIDERS: PCP Internal Medicine; Visit Provider Internal Medicine | DX: R10.9 Unspecified abdominal pain (principal); D64.9 Anemia, unspecified | CPT/HCPCS: 36415; 80048; 85025 ==

== ENCOUNTER 2023-02-11 10:51 | Outpatient (REF) | payer MEDICARE, SELFPAY | END 2023-02-11 10:52 | disposition home or self-care (01) | LOC: HO.US 10:51 | PROVIDERS: PCP Internal Medicine; Visit Provider Internal Medicine | DX: R10.9 Unspecified abdominal pain (principal) | CPT/HCPCS: 76700 ==

== ENCOUNTER 2023-02-15 20:03 | Emergency (ER) | payer MEDICARE, SELFPAY ==
--- NOTE | ~2023-02-15 | CT_ITS ---
EXAMINATION: CT HEAD WITHOUT CONTRAST (STROKE PROTOCOL) CLINICAL INFORMATION: Stroke protocol. Mental status change COMPARISON: None available. TECHNIQUE: Contiguous axial imaging was performed from the skull base to vertex without intravenous administration of contrast. This CT examination was performed using dose optimization techniques as appropriate, variously including the following: *Automated exposure control *Adjustment of mA and/or kV according to patient size (this includes techniques or standardized protocols for targeted exams where dose is matched to indication/reason for exam; i.e. extremities or head) *Use of iterative reconstruction technique DLP: 704 mGy-cm FINDINGS: There is no evidence of acute intracranial hemorrhage or territorial infarction. No abnormal mass effect or midline shift is seen. Herndon to white matter differentiation is well preserved. No extra-axial fluid collections are identified. The ventricles are normal in size. There is no abnormal attenuation within the brain parenchyma. The osseous structures and soft tissues are normal. The mastoid air cells and visualized portions of the paranasal sinuses are well-aerated. CT/CT head for stroke IMPRESSION: No acute intracranial pathology. This critical result was discussed with Dr. Padilla at 8:43 PM hours on 02/15/2023. It was ascertained that the content and urgency of the report was understood at the time of direct communication.
--- NOTE | ~2023-02-15 | CT_ITS ---
EXAMINATION: CT ANGIOGRAM HEAD CT ANGIOGRAM NECK CLINICAL INFORMATION: Confusion. Altered mental status. COMPARISON: CT head from 02/15/2023. TECHNIQUE: Initial noncontrast heat and vent aircraft mechanic imaging of the head and neck was performed. Comparison is made with noncontrast head CT from earlier today. Test bolus sequences followed by intravenous administration 70 mL of Omnipaque 350. Helical imaging was performed in the axial plane from the aortic arch to the skull vertex. Delayed postcontrast imaging of the head was also performed. The data was processed at the polysomnography technologist's workstation for generation of MIP sequences. Angled MIPs and volume rendered reformatted images were also generated at an offline 3D workstation. Stenoses are assessed in accordance with NASCET criteria unless otherwise indicated. This CT examination was performed using dose optimization techniques as appropriate, variously including the following: *Automated exposure control. *Adjustment of mA and/or kV according to patient size (this includes techniques or standardized protocols for targeted exams where dose is matched to indication/reason for exam; i.e. extremities or head). *Use of iterative reconstruction technique. DLP: 1600 mGy-cm FINDINGS: CT Head: There is no evidence of acute intracranial hemorrhage or edematous territorial infarction. Herndon-white matter differentiation is preserved. Scattered and partially confluent hypoattenuation in the periventricular and deep white matter are consistent with moderate microangiopathy. Proportional prominence of the ventricles and sulcal spaces without evidence of obstructive hydrocephalus. No abnormal mass effect or midline shift. No extra-axial fluid collections. No pathologic intra-axial enhancement or regional oligemia. No acute soft tissue or osseous abnormalities. Mild mucosal thickening of the paranasal sinuses. The mastoid air cells and middle ear cavities are clear. Right-sided lens extraction. CT Neck: Moderate heterogeneity of the thyroid gland. The remaining cervical soft tissues are within normal limits. Partial ankylosis of C2-C3. Mild degenerative retrolisthesis of C3 on C4. Advanced degenerative disc disease from C2-C7. Facet and uncovertebral joint arthropathy leads to osseous encroachment on the neural foramina from C3-C7. CT Upper Chest: The visualized lung apices and upper mediastinum are within normal limits. Neck CTA: Aortic Arch: Normal contour and caliber with moderate calcific atherosclerotic disease. Classic 3 vessel branching pattern of the aortic arch. Great Vessel Origins: No significant stenosis of the branch origins. Right Common Carotid Artery: No focal stenosis or occlusion. Cervical Right Internal Carotid Artery: Calcific atherosclerotic disease of the carotid bulb and proximal internal carotid artery causing less than 50% stenosis. Left Common Carotid Artery: No focal stenosis or occlusion. Cervical Left Internal Carotid Artery: Calcific atherosclerotic disease of the carotid bulb and proximal internal carotid artery causing less than 50% stenosis. Cervical Right Vertebral Artery: Co-dominant. No focal stenosis or occlusion. Cervical Left Vertebral Artery: Co-dominant. No focal stenosis or occlusion. Brain CTA: Intracranial Internal Carotid Arteries: Calcific atherosclerotic disease of the intracranial internal carotid arteries without occlusion or flow-limiting stenosis. Right Anterior Cerebral Artery: Normal A1 segment. Normal opacification of the distal PRIYA segments. Left Anterior Cerebral Artery: Normal A1 segment. Normal opacification of the distal PRIYA segments. Anterior Communicating Artery: Normal. Right Middle Cerebral Artery: Normal M1 segment of the MCA without focal stenosis or occlusion. Normal arborization of the distal segments. Left Middle Cerebral Artery: Normal M1 segment of the MCA without focal stenosis or occlusion. Normal arborization of the distal segments. Right Vertebral Artery: Normal V4 segment. Normal opacification of the proximal segments of the posterior inferior cerebellar artery. Left Vertebral Artery: Normal V4 segment. Normal opacification of the proximal segments of the posterior inferior cerebellar artery. Basilar Artery: Normal without focal stenosis or occlusion. Normal appearance of the proximal superior cerebellar arteries. Right Posterior Cerebral Artery: Normal P1 segment. Normal opacification of the distal V BEL[place] segments. Left Posterior Cerebral Artery: Normal P1 segment. Normal opacification of the distal V BEL[place] segments. Normal opacification of the superior sagittal, straight, transverse, and sigmoid sinuses. CT/CT angio head neck stroke IMPRESSION: 1. No evidence of acute intracranial hemorrhage or edematous territorial infarction. Moderate underlying microangiopathy and generalized cerebral volume loss. 2. CTA of the head and neck without proximal occlusion or flow-limiting stenosis.
--- NOTE | 2023-02-15 20:11 | ED_ITS ---
HPI - Abdominal Pain General Chief Complaint: Stroke Stated Complaint: Blockag in bioduct/sneezing/fever/disoriented Time Seen by Provider: 02/15/23 20:47 Source: patient and family Mode of arrival: ambulatory Limitations: no limitations History of Present Illness HPI narrative: Patient comes emergency room accompanied by his daughter. Early today, patient had a sudden episode of ?not feeling well? according to the patient he was walking to get his mail. Patient had sudden onset of generalized weakness. Nonfocal. Patient was able to return home without falling. According to the patient's daughter, patient seemed confused at times. When patient arrived to the emergency room, patient had no complaints other than the generalized weakness that he experienced before. Patient states that he was so weak that he was not sure if he could walk but he was able to do so with assistance of a long sick that he found out in his front yard Related Data Home Medications Medication Instructions Recorded Confirmed bimatoprost 0.01 % eye drops 1 drp ophthalmic (eye) DAILY 01/16/21 02/07/23 celecoxib 200 mg capsule (Celebrex) 200 mg PO DAILY 01/16/21 02/07/23 calcium carbonate 300 mg (750 mg) 300 mg PO BID PRN Indigestion 03/15/2101/25 chewable tablet (Tums E-X) Allergies Allergy/AdvReac Type Severity Reaction Status Date / Time No Known Allergies Allergy Verified 02/15/23 20:14 [No Known Allergies*] Review of Systems Review of Systems Constitutional : No Weight loss, No Fever, No Chills, No Night Sweats, complai sudhir of generalized weakness ENT/Mouth : No Hearing loss, No Ear Pain, No Nasal Congestion, No Sinus Pain, No Hoarseness, No sore throat, No Rhinorrhea, No Swallowing Difficulty Eyes: No Eye Pain, No Swelling, No Redness, No Foreign Body, No Discharge, No Vision Changes Cardiovascular : No Chest Pain, No SOB, No Dyspnea on Exertion, No Orthopnea, No Edema, No Palpitations Respiratory : No Cough, No Sputum, No Wheezing, No Smoke Exposure, No Dyspnea Gastrointestinal : No Nausea, No Vomiting, No Diarrhea, No Constipation, No abdominal Pain, No Hematochezia, No Melena Genitourinary : no irregular bleeding, No Dysuria, No Urinary Frequency, No Hematuria, No Urinary Incontinence, No Urgency, No Flank Pain, No Urinary Flow Changes, No Hesitancy Musculoskeletal : No joint pain, No Myalgias, No Joint Swelling Skin : No Skin Lesions, No rash Neuro : No Weakness, No Numbness, No Paresthesias, No Loss of Consciousness, No Dizziness, No Headache, complaining of tremors that happened while he was f eeling weak in both upper and lower extremities Psych : No Anxiety/Panic, No Depression, No SI/HI/AH/VH, No Social Issues, Heme/Lymph: No Bruising, No Bleeding,No Lymphadenopathy Endocrine : No Polyuria, No Polydipsia, No Temperature Intolerance [facility] Past Medical History Medical History Arthritis Pancreatic lesion Pancreatic mass Severe malnutrition Weight loss Surgical History History of cataract extraction History of endoscopic retrograde cholangiopancreatography History of hip replacement, total History of left inguinal hernia repair Hx of arthroscopic knee surgery Hx of hernia repair Family History Family History Mother Ovarian cancer Father Prostate cancer CVA (cerebral vascular accident) Stenosis of artery Daughter Asthma Social History Social History Household Members: Spouse Household Members Other:: Housing: House Are you a primary career and transition teacher to a significant other at home: No Do you presently have visiting nurse or other home services: Yes ([facility]) Alcohol intake: current Alcohol intake frequency: a few times a week Alcohol type: beer Patient Tobacco Use Status: Former Tobacco user Quit Date: 1967 Cigarette Packs Per Day: 1 Smoked in Last 30 Days: No Second Hand Smoke Exposure: No Use of substances other than those prescribed or required for medical reasons: No Advance Directives: No Advance Directives Information Provided: Yes service: Yes Current occupational status: retired Physical Exam ED Vital Signs: Vital Signs - 24 hr 02/15/23 20:16 02/15/23 20:23 02/15/23 21:00 Temperature 98.7 F 98.7 F 98.6 F Pulse Rate 92 92 81 Respiratory Rate 19 19 18 Blood Pressure 126/65 126/65 120/61 Pulse Oximetry 95 95 96 Oxygen Delivery Method Room Air Room Air Room Air 02/15/23 22:31 02/15/23 22:32 02/15/23 22:33 Temperature Pulse Rate 77 82 87 Respiratory Rate Blood Pressure 111/60 122/53 L 130/53 L Pulse Oximetry Oxygen Delivery Method 02/15/23 22:32 Temperature 98.6 F Pulse Rate 82 Respiratory Rate 18 Blood Pressure 122/53 L Pulse Oximetry 97 Oxygen Delivery Method Room Air BMI result Body Mass Index 19.3 Const Other: Appearance: Alert. Oriented X3. No acute distress. Eyes: Pupils equal, round and reactive to light. ENT: Pharynx normal. Neck: Normal inspection. Neck supple. No lymph nodes noted. No crepitus CVS: Normal heart rate and rhythm. Pulses normal. Normal S1 and S2 Respiratory: No respiratory distress. Breath sounds normal. No Wheezing. No rales Abdomen: Soft and nontender. No rigidity. No distention. Skin: Skin warm and dry. Normal skin color. Normal skin turgor. Extremities: No lower extremity edema. No Lacerations. No Rash Neuro: Oriented X 3. No motor deficit. No sensory deficit. Moving all extremities. No slurred speech. CN 2 through 12 grossly intact Psych: calm, cooperative, normal affect NIH Stroke Scale Internal: Initial- Upon Arrival Level of Consciousness: Alert Level of Consciousness Questions: Answers both questions correctly Level of Consciousness Commands: Performs both tasks correctly Best Gaze: Normal Visual: No visual loss Facial Palsy: Normal Motor Arm (Right): No drift Motor Arm (Left): No drift Motor Leg (Right): No drift Motor Leg (Left): No drift Limb Ataxia: Absent Sensory: Normal Best Language: No aphasia Dysarthia: Normal Extinction and Inattention: No abnormality Score: 0 Course Course Course Narrative: RME: 87yo m w/PMHx CBD obstruction, anemia, arthritis, c/o abdominal discomfort x 1 week, now w/chills, sweats/shakiness, lightheadedness, increased confusion & fatigue since 5PM tonight per family after getting the mail. Patient usually very sharp, but off per daughter, confused location of keys/hospital entrance & slower to explain whats happening. Denies taking AC. Patient grabbed cane to come to the ED and at baseline ambulates w/o assistive devices NIHSS=0, no focal deficits, A&Ox3. Per daughter not ambulating at baseline, slower than normal/hunched over, no ataxia Had outpatient Abs US on 02/11/23 Stroke protocol ordered Full HPI, ROS and PE to be performed by primary ED provider. Medical Decision Making Medical Decision Making [facility] Narrative: -patient's NIH score 0 -I was present while the patient was getting his CTs. My interpretation of the CT scan of the head. No intracranial bleed present. -patient symptoms unlikely to be secondary to a TIA, patient is at baseline at this time, not a CVA -my interpretation of labs: White blood cell count 12.6, patient does not have any URI or UTI symptoms. Likely reactive leukocytosis. No electrolyte abnormalities. LFTs within normal limits, troponin x2 negative -my interpretation of EKG: Normal sinus rhythm, left bundle-branch block, heart rate 84, no ST segment depression or elevation, no T-wave inversion, QTC 439 -patient ambulatory by himself without assistance. Patient states that he feels well, asymptomatic. -I discussed the patient with Dr. Ko, patient states that he had a bit of numbness in the fingertips of his right hand. Overall, patient does not have any active symptoms, unlikely that patient even had a TIA had and near syncopal episode/vasovagal. No need for admission -here in the emergency room, orthostatic vitals were checked, negative -patient has been asymptomatic since arrival Differential Diagnosis Differential Diagnoses: The differential diagnosis associated with the presentation includes (TIA, orthostatic hypotension, vasovagal near-syncope) Admission/Observation Consideration of admission/observation: Escalation of care including admission/observation considered Consult Healthcare Provider Management of the patient was discussed with: Hospitalist Lab Data [facility] Lab Attestation statement: I reviewed the patient's lab results. 02/15/23 20:31 02/15/23 20:22 Labs: Lab Results 02/15/23 02/15/23 02/15/23 Range/Units 20:22 20:29 20:31 WBC 12.6 H (4.8-10.8) X10*3/uL RBC 3.76 L (4.60-5.80) X10*6/uL Hgb 12.0 L (14.0-18.0) g/dl Hct 36.4 L (42.0-52.0) % MCV 96.8 (80.0-98.0) fL MCH 31.9 (27.0-33.0) pg MCHC 33.0 (31.0-36.0) g/dl RDW 13.0 (11.0-16.0) % Plt Count 250 (160-400) X10*3/uL MPV 8.9 L (9.4-12.4) fL Immature Gran % (Auto) 0.3 (0.0-0.4) % Neut % (Auto) 65.7 (45-73) % Lymph % (Auto) 25.0 (20-40) % [place] % (Auto) 6.6 (2-11) % Eos % (Auto) 2.1 (0-4) % Baso % (Auto) 0.3 (0-2) % Lymph # (Auto) 3.1 (1.2-4.9) X10*3/uL [place] # (Auto) 0.8 (0.1-1.2) X10*3/uL Eos # (Auto) 0.3 (0.0-0.4) X10*3/uL Baso # (Auto) 0.0 (0.0-0.2) X10*3/uL Abs Immat Gran (auto) 0.04 H (0.00-0.03) X10*3/uL Absolute Neuts (auto) 8.2 (2.0-8.3) x10*3/uL Absolute Nucleated RBC 0.000 (0.0-0.012) X10*3/uL Nucleated RBC % (auto) 0.0 (0.0-0.2) /100WBC PT (10.0-13.1) SEC INR (0.9-1.1) Sodium 138 (135-145) mmol/L Potassium 4.2 (3.3-5.1) mmol/L Chloride 106 (96-108) mmol/L Carbon Dioxide 22 (22-29) mmol/L Anion Gap 14 (12-20) BUN 24 H (9-16) mg/dL Creatinine 1.22 (0.5-1.4) mg/dL Estim Creat Clear Calc 42.6 Estimated GFR 56 POC Glucose 109 (60-115) mg/dL Random Glucose 112 (60-115) mg/dL Calcium 8.8 D (8.4-10.2) mg/dL Magnesium 2.2 (1.6-2.6) mg/dL Total Bilirubin 0.8 (0.0-1.0) mg/dL Direct Bilirubin 0.3 (0.0-0.5) mg/dL AST 18 (5-37) U/L ALT 13 (0-40) U/L Alkaline Phosphatase 102 (39-117) U/L Troponin I High Sens (<3.5-35.0) ng/L Total Protein 6.9 (6.5-8.0) g/dL Albumin 4.0 (3.5-5.0) g/dL Urine Color Urine Appearance Urine pH (5.0-9.0) Ur Specific [place] (1.005-1.025) Urine Protein (Neg-Trace) mg/dL Urine Glucose (UA) (Negative) mg/dL Urine Ketones (Negative) mg/dL Urine Blood (Negative) Urine Nitrite (Negative) Ur Leukocyte Esterase (Negative) 02/15/23 02/15/23 02/15/23 Range/Units 20:31 20:31 21:26 WBC (4.8-10.8) X10*3/uL RBC (4.60-5.80) X10*6/uL Hgb (14.0-18.0) g/dl Hct (42.0-52.0) % MCV (80.0-98.0) fL MCH (27.0-33.0) pg MCHC (31.0-36.0) g/dl RDW (11.0-16.0) % Plt Count (160-400) X10*3/uL MPV (9.4-12.4) fL Immature Gran % (Auto) (0.0-0.4) % Neut % (Auto) (45-73) % Lymph % (Auto) (20-40) % [place] % (Auto) (2-11) % Eos % (Auto) (0-4) % Baso % (Auto) (0-2) % Lymph # (Auto) (1.2-4.9) X10*3/uL [place] # (Auto) (0.1-1.2) X10*3/uL Eos # (Auto) (0.0-0.4) X10*3/uL Baso # (Auto) (0.0-0.2) X10*3/uL Abs Immat Gran (auto) (0.00-0.03) X10*3/uL Absolute Neuts (auto) (2.0-8.3) x10*3/uL Absolute Nucleated RBC (0.0-0.012) X10*3/uL Nucleated RBC % (auto) (0.0-0.2) /100WBC PT 10.9 (10.0-13.1) SEC INR 1.0 (0.9-1.1) Sodium (135-145) mmol/L Potassium (3.3-5.1) mmol/L Chloride (96-108) mmol/L Carbon Dioxide (22-29) mmol/L Anion Gap (12-20) BUN (9-16) mg/dL Creatinine (0.5-1.4) mg/dL Estim Creat Clear Calc Estimated GFR POC Glucose (60-115) mg/dL Random Glucose (60-115) mg/dL Calcium (8.4-10.2) mg/dL Magnesium (1.6-2.6) mg/dL Total Bilirubin (0.0-1.0) mg/dL Direct Bilirubin (0.0-0.5) mg/dL AST (5-37) U/L ALT (0-40) U/L Alkaline Phosphatase (39-117) U/L Troponin I High Sens 10.9 (<3.5-35.0) ng/L Total Protein (6.5-8.0) g/dL Albumin (3.5-5.0) g/dL Urine Color Yellow Urine Appearance Clear Urine pH 6.0 (5.0-9.0) Ur Specific [place] >= 1.030 H (1.005-1.025) Urine Protein Trace (Neg-Trace) mg/dL Urine Glucose (UA) Negative (Negative) mg/dL Urine Ketones 15 (Negative) mg/dL Urine Blood Negative (Negative) Urine Nitrite Negative (Negative) Ur Leukocyte Esterase Negative (Negative) 02/15/23 Range/Units 22:29 WBC (4.8-10.8) X10*3/uL RBC (4.60-5.80) X10*6/uL Hgb (14.0-18.0) g/dl Hct (42.0-52.0) % MCV (80.0-98.0) fL MCH (27.0-33.0) pg MCHC (31.0-36.0) g/dl RDW (11.0-16.0) % Plt Count (160-400) X10*3/uL MPV (9.4-12.4) fL Immature Gran % (Auto) (0.0-0.4) % Neut % (Auto) (45-73) % Lymph % (Auto) (20-40) % [place] % (Auto) (2-11) % Eos % (Auto) (0-4) % Baso % (Auto) (0-2) % Lymph # (Auto) (1.2-4.9) X10*3/uL [place] # (Auto) (0.1-1.2) X10*3/uL Eos # (Auto) (0.0-0.4) X10*3/uL Baso # (Auto) (0.0-0.2) X10*3/uL Abs Immat Gran (auto) (0.00-0.03) X10*3/uL Absolute Neuts (auto) (2.0-8.3) x10*3/uL Absolute Nucleated RBC (0.0-0.012) X10*3/uL Nucleated RBC % (auto) (0.0-0.2) /100WBC PT (10.0-13.1) SEC INR (0.9-1.1) Sodium (135-145) mmol/L Potassium (3.3-5.1) mmol/L Chloride (96-108) mmol/L Carbon Dioxide (22-29) mmol/L Anion Gap (12-20) BUN (9-16) mg/dL Creatinine (0.5-1.4) mg/dL Estim Creat Clear Calc Estimated GFR POC Glucose (60-115) mg/dL Random Glucose (60-115) mg/dL Calcium (8.4-10.2) mg/dL Magnesium (1.6-2.6) mg/dL Total Bilirubin (0.0-1.0) mg/dL Direct Bilirubin (0.0-0.5) mg/dL AST (5-37) U/L ALT (0-40) U/L Alkaline Phosphatase (39-117) U/L Troponin I High Sens 13.7 (<3.5-35.0) ng/L Total Protein (6.5-8.0) g/dL Albumin (3.5-5.0) g/dL Urine Color Urine Appearance Urine pH (5.0-9.0) Ur Specific [place] (1.005-1.025) Urine Protein (Neg-Trace) mg/dL Urine Glucose (UA) (Negative) mg/dL Urine Ketones (Negative) mg/dL Urine Blood (Negative) Urine Nitrite (Negative) Ur Leukocyte Esterase (Negative) Independent Interpretation I performed an independent interpretation of an: CT Scan Radiology Impression Discussion of test interpretation with radiology: I have reviewed the radiologist's reading. Radiologist Impression: FINDINGS: CT Head: There is no evidence of acute intracranial hemorrhage or edematous territorial infarction. [place]-white matter differentiation is preserved. Scattered and partially confluent hypoattenuation in the periventricular and deep white matter are consistent with moderate microangiopathy. Proportional prominence of the ventricles and sulcal spaces without evidence of obstructive hydrocephalus. No abnormal mass effect or midline shift. No extra-axial fluid collections. No pathologic intra-axial enhancement or regional oligemia. No acute soft tissue or osseous abnormalities. Mild mucosal thickening of the paranasal sinuses. The mastoid air cells and middle ear cavities are clear. Right-sided lens extraction. CT Neck: Moderate heterogeneity of the thyroid gland. The remaining cervical soft tissues are within normal limits. Partial ankylosis of C2-C3. Mild degenerative retrolisthesis of C3 on C4. Advanced degenerative disc disease from C2-C7. Facet and uncovertebral joint arthropathy leads to osseous encroachment on the neural foramina from C3-C7. CT Upper Chest: The visualized lung apices and upper mediastinum are within normal limits. Neck CTA: Aortic Arch: Normal contour and caliber with moderate calcific atherosclerotic disease. Classic 3 vessel branching pattern of the aortic arch. Great Vessel Origins: No significant stenosis of the branch origins. Right Common Carotid Artery: No focal stenosis or occlusion. Cervical Right Internal Carotid Artery: Calcific atherosclerotic disease of the carotid bulb and proximal internal carotid artery causing less than 50% stenosis. Left Common Carotid Artery: No focal stenosis or occlusion. Cervical Left Internal Carotid Artery: Calcific atherosclerotic disease of the carotid bulb and proximal internal carotid artery causing less than 50% stenosis. Cervical Right Vertebral Artery: Co-dominant. No focal stenosis or occlusion. Cervical Left Vertebral Artery: Co-dominant. No focal stenosis or occlusion. Brain CTA: Intracranial Internal Carotid Arteries: Calcific atherosclerotic disease of the intracranial internal carotid arteries without occlusion or flow-limiting stenosis. Right Anterior Cerebral Artery: Normal A1 segment. Normal opacification of the distal PRIYA segments. Left Anterior Cerebral Artery: Normal A1 segment. Normal opacification of the distal PRIYA segments. Anterior Communicating Artery: Normal. Right Middle Cerebral Artery: Normal M1 segment of the MCA without focal stenosis or occlusion. Normal arborization of the distal segments. Left Middle Cerebral Artery: Normal M1 segment of the MCA without focal stenosis or occlusion. Normal arborization of the distal segments. Right Vertebral Artery: Normal V4 segment. Normal opacification of the proximal segments of the posterior inferior cerebellar artery. Left Vertebral Artery: Normal V4 segment. Normal opacification of the proximal segments of the posterior inferior cerebellar artery. Basilar Artery: Normal without focal stenosis or occlusion. Normal appearance of the proximal superior cerebellar arteries. Right Posterior Cerebral Artery: Normal P1 segment. Normal opacification of the distal DEVULCANIZER HEAD segments. Left Posterior Cerebral Artery: Normal P1 segment. Normal opacification of the distal DEVULCANIZER HEAD segments. Normal opacification of the superior sagittal, straight, transverse, and sigmoid sinuses. CT/CT angio head? neck stroke IMPRESSION: 1.? No evidence of acute intracranial hemorrhage or edematous territorial infarction. Moderate underlying microangiopathy and generalized cerebral volume loss. 2.? CTA of the head and neck without proximal occlusion or flow-limiting stenosis. ? Discharge Plan Discharge Clinical Impression: Generalized weakness Patient Disposition: Home, Self-Care Instructions: Weakness (ED) Additional Instructions: Please follow-up with your primary care physician tomorrow. If you have any worsening or new symptoms, please return to the emergency room or call 911 Prescriptions: No Action calcium carbonate [Tums E-X] 300 mg (750 mg) Tablet,Chewable 300 mg PO BID PRN (Reason: Indigestion) celecoxib [Celebrex] 200 mg capsule 200 mg PO DAILY bimatoprost 0.01 % drops 1 drp ophthalmic (eye) DAILY
--- NOTE | 2023-02-15 20:14 | ECG_ITS ---
Test Reason : ?STROKE Blood Pressure : / mmHG Vent. Rate : 084 BPM Atrial Rate : 084 BPM P-R Int : 134 ms QRS Dur : 138 ms QT Int : 372 ms P-R-T Axes : 056 -67 045 degrees QTc Int : 439 ms Normal sinus rhythm Right bundle branch block Left anterior fascicular block Bifascicular block Abnormal ECG When compared with ECG of 15-MAR-2021 17:22, No significant change was found Referred By: Rhiannon Villegas Electronically Signed By:SIMEON MCMULLEN MD
[2023-02-15 20:16] VITALS: BP 126/65; PULSE 92; RESP 19; TEMP 37.1; O2SAT 95; BMI 19.3
[2023-02-15 20:23] VITALS: BP 126/65; PULSE 92; RESP 19; TEMP 37.1; O2SAT 95; BMI 19.3
--- NOTE | 2023-02-15 20:31 | PC.NURSE ---
Confered with DR. Randy camacho is not stroke protocol at this time.
[2023-02-15 20:32] LABS: Glucose, Whole Blood 109 mg/dL (60-115)
[2023-02-15 20:38] LABS: MANUAL DIFF FLAG NO
[2023-02-15 20:41] LABS: Basophils Percent Auto 0.3 % (0-2); Eosinophils Absolute Auto 0.3 X10*3/uL (0.0-0.4); Eosinophils Percent Auto 2.1 % (0-4); Hematocrit 36.4 % (42.0-52.0); Imm Gran Abs Auto 0.04 X10*3/uL (0.00-0.03); Imm Gran Pct Auto 0.3 % (0.0-0.4); Lymphocytes Absolute Auto 3.1 X10*3/uL (1.2-4.9); Mean Corpuscular Hemoglobin 31.9 pg (27.0-33.0); Mean Corpuscular Volume 96.8 fL (80.0-98.0); Mean Platelet Volume 8.9 fL (9.4-12.4); Monocytes Absolute Auto 0.8 X10*3/uL (0.1-1.2); Monocytes Percent Auto 6.6 % (2-11); Neutrophils Absolute Auto 8.2 x10*3/uL (2.0-8.3); Neutrophils Percent Auto 65.7 % (45-73); Platelet Count 250 X10*3/uL (160-400); Red Blood Count 3.76 X10*6/uL (4.60-5.80); White Blood Count 12.6 X10*3/uL (4.8-10.8)
[2023-02-15 20:45] LABS: Prothrombin Time 10.9 SEC (10.0-13.1)
[2023-02-15 20:53] LABS: Alanine Aminotransferase 13 U/L (0-40); Alkaline Phosphatase 102 U/L (39-117); Anion Gap 14 (12-20); Aspartate Amino Transferase 18 U/L (5-37); Bilirubin Direct 0.3 mg/dL (0.0-0.5); Bilirubin Total 0.8 mg/dL (0.0-1.0); Blood Urea Nitrogen 24 mg/dL (9-16); Calcium 8.8 mg/dL (8.4-10.2); Carbon Dioxide 22 mmol/L (22-29); Chloride 106 mmol/L (96-108); Creatinine Clr Calc Pharmacy 42.6; Estimated Glomerular Filt Rate 56; Glucose Random 112 mg/dL (60-115); Magnesium 2.2 mg/dL (1.6-2.6); Potassium 4.2 mmol/L (3.3-5.1); Sodium 138 mmol/L (135-145); Total Protein 6.9 g/dL (6.5-8.0)
[2023-02-15 21:00] VITALS: BP 120/61; PULSE 81; RESP 18; TEMP 37; O2SAT 96
[2023-02-15 21:01] LABS: Troponin-I High Sensitivity 10.9 ng/L (<3.5-35.0)
--- OUTSIDE RECORDS SUMMARY | 2023-02-15 21:30 | XMS_ITS ---
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 185802 003 Problem Abn findings-GI tract R93.3 Active [id number] ALLERGIES No Known Allergies ENCOUNTERS Encounter Location Date Diagnosis [facility] [address] [place] [phone] Apr, Abn findings-GI tract R93.3 and 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 [facility] [address] [place] [phone] Jan, Abn findings-GI tract R93.3 and Pancreatic abnormality Q45.3 [facility] [address] [place] [phone] Aug, [facility] [address] [place] [phone] Jul, [facility] [address] [place] [phone] Jul, Pancreatic abnormality Q45.3 [facility] [address] [place] [phone] 15 Jul, 2021 Common bile duct stone K80.50 and Abn findings-GI tract R93.3 [facility] [address] [place] [phone] 09 Apr, 2021 [facility] [address] [place] [phone] 03 Apr, 2021 [facility] [address] [place] [phone] 16 Mar, 2021 Abn findings-GI tract R93.3 [facility] [place] [address], [place] [phone] 12 Mar, 2021 IMMUNIZATIONS Vaccine Route Administration Date Status Influenza Unknown Apr 05, 2021 Administered SOCIAL HISTORY Qualifiers Date Former Smoker REASON FOR REFERRAL FUNCTIONAL STATUS PLAN OF CARE Activity Details VITAL SIGNS Weight 152 lbs 2022-01-17 Weight 154 lbs 2021-07-19 Height 74 in 2022-01-17 Height 74 in 2021-07-19 BMI 19.51 kg/m2 2022-01-17 BMI 19.77 kg/m2 2021-07-19 Temperature 97.7 degrees Fahrenheit Temperature 97.7 degrees Fahrenheit Blood pressure systolic 000 mm Hg Blood pressure diastolic 00 mm Hg 2022-01 MEDICATIONS Medication Instructions Dosage Frequency Start Date End Date Du ration Status Celecoxib 200 MG 90 Active Lumigan 0.01 % 90 A ctive PROCEDURES Procedure Date Ordered Result Body Site DOC RSN FOR NOT SCREEN/REC F/U HBP Jul 19, 2021 ENDO CHOLANGIOPANCREATOGRAPH Mar 16, 2021 Pt scrn tbco and id as user January 17, 2022 Pt scrn tbco id as non user Jul 19, 2021 DOC MEDS VERIFIED W/PT OR RE January 17, 2022 DOC MEDS VERIFIED W/PT OR RE Jul 19, 2021 ENDO CHOLANGIOPANCREATOGRAPH Mar 16, 2021 INIT HOSP-MOD CPLX Mar 16, 2021 PATIENT NOT ELIG D/T ACTIVE DX HTN January 17, 2022 [facility] Apr 05, 2022 RESULTS Name Result Date Reference Range Complete Blood Count no Diff 2021-07-19 White Blood Count 7.0 4.8-10.8 Red Blood Count 3.90 4.60-5.80 Hemoglobin 12.1 14.0-18.0 Hematocrit 38.5 42.0-52.0 Mean Corpuscular Volume 98.7 80.0 -98.0 Mean Corpuscular Hemoglobin 31.0 27.0-33.0 Mean Corpuscular HGB Conc 31.4 31 .0-36.0 Red Cell Distribution Width 13.6 11.0-16.0 Platelet Count 240 160-400 Mean Platelet Volume 10.0 9.4-12. 4 NRBC Pct Auto 0.0 0.0-0.2 NRBC Abs Auto 0.000 0.0-0.012 Liver Panel 2021-07-19 Bilirubin Total 0.8 0.0-1.0 Bilirubin Direct 0.3 0.0-0.5 Aspartate Amino Transferase 23 5-37 Alanine Aminotransferase 14 0-4 0 Total Protein 6.3 6.5-8.0 Albumin Level 3.9 3.5-5.0 Alkaline Phosphatase 73 39-117 Blood Urea Nitrogen 2021-07-19 Blood Urea Nitrogen 24 9-16 Creatinine 2021-07-19 Creatinine 1.28 0.5-1.4 Estimated Glomerular Filt Rate 54 Carbohydrate Antigen 19-9 2021-07-19 Carbohydrate Antigen 19-9 15 <3 4 Complete Blood Count no Diff 2021-03-17 White Blood Count 7.2 4.8-10.8 Red Blood Count 3.37 4.60-5.80 Hemoglobin 10.6 14.0-18.0 Hematocrit 33.4 42-52 Mean Corpuscular Volume 99.1 80-9 8 Mean Corpuscular Hemoglobin 31.5 27.0-33.0 Mean Corpuscular HGB Conc 31.7 31 .0-36.0 Red Cell Distribution Width 13.9 11.0-16.0 Platelet Count 309 160-400 Mean Platelet Volume 9.9 9.4-12. 4 NRBC Pct Auto 0.0 0.0-0.2 NRBC Abs Auto 0.000 0.0-0.012 Liver Panel 2021-03-17 Bilirubin Total 1.6 0.0-1.0 Bilirubin Direct 1.1 0.0-0.5 Aspartate Amino Transferase 57 5-37 Alanine Aminotransferase 60 0-4 0 Total Protein 5.2 6.5-8.0 Albumin Level 2.7 3.5-5.0 Alkaline Phosphatase 709 39-117 US abdomen limited 2021-03-17 Pathology 2021-03-16 Prothrombin Time INR 2021-03-16 Prothrombin Time 11.7 9.9-13.0 INTERNATIONAL NORM RATIO 1.0 0.9 -1.1 Pathology 2021-03-16 FL guidance in OR 2021-03-16 REASON FOR VISIT incorrect codes on 01/17, Patient presents today for abn xr pancreas, MRI, labs, Imaging , Patient presents today for constipation, MRI, MRI dept , pathology, JAUNDICE Insurance Providers Health Insurance Type Health Plan Insurance Address Health Plan Insurance Phone Health Plan Insurance Name Health Plan Coverage Dates Member ID Patient Relationship to Subscriber Patient Address Patient Phone Patient Name Patient Date of Subscriber ID Subscriber Name Subscriber Date of Group No MEDEX ATTN CLAIMS [address] [facility] [address] MEDEX self GISELA MORGAN [id number] MEDICARE OF [place] [address] [facility] [address] MEDICARE OF [facility] GISELA GULATOYATETE [id number]
[2023-02-15 21:38] LABS: Appearance Urine Clear; Color Urine Yellow; Glucose Urine UA Negative (Negative); Leukocyte Esterase Urine Negative (Negative); Nitrite Urine Negative (Negative); Specific Gravity - Urine >= 1.030 (1.005-1.025); Urine Blood Negative (Negative); Urine Ketones 15 mg/dL (Negative); Urine Protein Trace mg/dL (Neg-Trace)
[2023-02-15 22:31] VITALS: BP 111/60; PULSE 77
[2023-02-15 22:32] VITALS: BP 122/53; PULSE 82; RESP 18; TEMP 37; O2SAT 97
[2023-02-15 22:33] VITALS: BP 130/53; PULSE 87
[2023-02-15 23:15] LABS: Troponin-I High Sensitivity 13.7 ng/L (<3.5-35.0)
--- NOTE | 2023-02-16 00:35 | MHC.EDTECH ---
VITALS @0032 (TIME OF D/C) T: 98.3 P:76 O2: 98 RESP: 17 B/P: 111/59
== END 2023-02-16 00:35 | disposition home or self-care (01) ==
PROVIDERS: Physician Assistant; Emergency Provider Emergency Medicine; PCP Internal Medicine
DX: R41.82 Altered mental status, unspecified (principal); R53.1 Weakness; I45.10 Unspecified right bundle-branch block; R50.9 Fever, unspecified; R51.9 Headache, unspecified; Z79.899 Other long term (current) drug therapy; Z87.891 Personal history of nicotine dependence
CPT/HCPCS: 36415; 70450; 70496; 70498; 80048; 80076; 81003; 82947; 83735; 84484; 85025; 85610; 93005; 99284; 99285

== ENCOUNTER → 2023-02-15 20:14 | Outpatient (BNV) | payer MEDICARE, SELFPAY | PROVIDERS: Emergency Provider Emergency Medicine; PCP Internal Medicine; Visit Provider Internal Medicine Cardiovascular Disease | DX: I45.2 Bifascicular block (principal) | CPT/HCPCS: 93010 ==

== ENCOUNTER 2023-02-22 13:54 | Outpatient (AMB) | payer MEDICARE, SELFPAY ==
[2023-02-22 13:57] VITALS: BP 102/60; PULSE 67; O2SAT 99; BMI 18.9
--- NOTE | 2023-02-22 13:57 | MHC.PC.OV ---
Vital Signs 02/22/23 13:57 Height 6 ft 2 in Weight 147 lb BMI 18.9 BP 102/60 Blood Pressure Location Lt brachial Position Sitting Pulse 67 Pulse Source Pulse Oximeter Pulse Oximetry (%) 99 Oxygen Delivery Method Room Air Intake Visit Reasons: Discuss ultrasound results Family Services Worker Required: No Accompanied by: Self / Same As Patient Allergies No Known Allergies [No Known Allergies*] Allergy (Verified 02/22/23 13:57) Tobacco use date assessed: 02/22/23 Fall risk assessment: No Falls in past year Last assessed Fall Risk: 02/22/23 HPI Discuss ultrasound results HPI Details had RUQ abd and right shoulder pain which has resolved; US shoed a gallstone but no cholecyst; feels well now PFSH Medical History Arthritis Pancreatic lesion Pancreatic mass Severe malnutrition Weight loss Surgical History History of cataract extraction History of endoscopic retrograde cholangiopancreatography History of hip replacement, total History of left inguinal hernia repair Hx of arthroscopic knee surgery Hx of hernia repair Family History Mother Ovarian cancer Father Prostate cancer CVA (cerebral vascular accident) Stenosis of artery Daughter Asthma Social History Household Members: Spouse Household Members Other:: Housing: House Are you a primary landcare facilitator to a significant other at home: No Do you presently have visiting nurse or other home services: Yes ([facility]) Alcohol intake: current Alcohol intake frequency: a few times a week Alcohol type: beer Patient Tobacco Use Status: Former Tobacco user Quit Date: 1965 Cigarette Packs Per Day: 1 Second Hand Smoke Exposure: No service: Yes Current occupational status: retired Questionnaire Thrive Questionnaire Date Thrive assessed: 02/07/23 CIERRA-7 AMB Questionnaire CIERRA-7 Date CIERRA - 7 assessed: 02/07/23 Source: Developed by Drs. Ezio Flores, Candice Dangelo, Chemo Wren and colleagues, with an educational amari from [employer] Review of Systems Const Denies chills, Denies headache(s) and Denies weight loss ENT Denies headache(s) Card Denies chest pain, Denies syncope, Denies irregular heart rhythm and Denies dyspnea Resp Denies chest congestion, Denies cough and Denies dyspnea GI Denies abdominal pain, Denies change in stool character, Denies nausea and Denies vomiting Musc Denies deformity and Denies joint swelling Neuro Denies syncope and Denies headache(s) Physical exam (Primary Care) Vital Signs: Last Vital Signs Pulse 67 02/22/23 13:57 BP 102/60 02/22/23 13:57 Pulse Ox 99 02/22/23 13:57 Oxygen Delivery Method Room Air 02/22/23 13:57 BMI result Body Mass Index 18.9 Tobacco/Smoking Status: Tobacco use Status Tobacco use date assessed 02/22/23 02/22/23 13:58 Patient Tobacco Use Status Former Tobacco user 02/22/23 13:58 Thrive Assessment: Date of Thrive Assessment Date Thrive assessed 02/07/23 02/22/23 13:58 Const General: cooperative and comfortable Chest Chest palpation & inspection: normal inspection of the chest Resp Effort & Inspection: normal respiratory effort Auscultation: clear to auscultation bilaterally Percussion: percussion normal Cardio Jugular venous distension: no JVD Rate: regular rate Rhythm: regular rhythm GI Inspection: Yes normal to inspection Assessment and Plan Assessment & Plan (1) Cholelithiases: Code(s): K80.20 - Calculus of gallbladder without cholecystitis without obstruction Plan: observe Coding Level of Care Code Est Pt Level 3 (14549) Diagnoses Cholelithiases K80.20
== END 2023-02-22 14:18 | disposition home or self-care (01) ==
PROVIDERS: PCP Internal Medicine; Visit Provider Internal Medicine
DX: K80.20 Calculus of gallbladder without cholecystitis without obstruction (principal)
CPT/HCPCS: 99213

== ENCOUNTER 2023-05-27 13:51 | Outpatient (AMB) | payer MEDICARE, SELFPAY ==
--- NOTE | 2023-05-27 14:01 | A.OFFPC_ITS ---
Vital Signs 05/27/23 14:02 Height 6 ft 2 in Weight 149 lb BMI 19.1 BP 110/58 L Blood Pressure Location Lt brachial Position Sitting Pulse 67 Pulse Source Pulse Oximeter Pulse Oximetry (%) 98 Oxygen Delivery Method Room Air Intake Visit Reasons: 3mth f/u Allergies No Known Allergies [No Known Allergies*] Allergy (Verified 05/27/23 14:02) Medication List - Last Reconciled 05/27/23 by Shahzad Palomares MD bicalutamide 50 mg PO DAILY bimatoprost 0.01% 1 drp ophthalmic (eye) DAILY calcium carbonate (Tums E-X) 300 mg PO BID PRN celecoxib (Celebrex) 200 mg PO DAILY Tobacco use date assessed: 02/22/23 Fall risk assessment: No Falls in past year Last assessed Fall Risk: 05/27/23 Dental Screening Dental Screen Date: 05/27/23 Did you have a dental visit in the last 12 months?: Yes Did you have a dental problem in the last 6 months where you did not have access to dental care?: No Was dental information given to patient?: Patient has dentist HPI 3mth f/u HPI Details osteoarthritis on rx; doing well; compliant ON LICENSE OF [facility] Medical History (Updated 05/27/23 @ 14:21 by Shahzad Palomares MD) Severe malnutrition Pancreatic lesion Pancreatic mass Weight loss Arthritis Surgical History History of endoscopic retrograde cholangiopancreatography Hx of hernia repair Hx of arthroscopic knee surgery History of cataract extraction History of hip replacement, total History of left inguinal hernia repair Family History Mother Ovarian cancer Father Prostate cancer CVA (cerebral vascular accident) Stenosis of artery Daughter Asthma Social History Household Members: Spouse Household Members Other:: Housing: House Are you a primary rn complex care to a significant other at home: No Do you presently have visiting nurse or other home services: Yes ([facility]) Alcohol intake: current Alcohol intake frequency: a few times a week Alcohol type: beer Patient Tobacco Use Status: Former Tobacco user Quit Date: 1965 Cigarette Packs Per Day: 1 Second Hand Smoke Exposure: No service: Yes Current occupational status: retired Cognitive needs: No Hearing needs: No Vision needs: No Questionnaire PHQ-9 Over the last 2 weeks, how often have you been bothered by any of the following problems? 1. Little interest or pleasure in doing things: not at all 2. Feeling down, depressed, or hopeless: not at all 3. Trouble falling or staying asleep, or sleeping too much: not at all 4. Feeling tired or having little energy: several days 5. Poor appetite or overeating: several days 6. Feeling bad about yourself - or that you are a failure or have let yourself or your family down: not at all 7. Trouble concentrating on things, such as reading the newspaper or watching television: not at all 8. Moving or speaking so slowly that other people could have noticed. Or the opposite - being so fidgety or restless that you have been moving around a lot more than usual: not at all 9. Thoughts that you would be better off or of hurting yourself in some way: not at all Total score: 2 Depression Screening Interpretation: Negative Depression Screening Done: Yes 87353 - PHQ-9 Billing: Yes Source: Developed by Drs. Ezio Flores, Chemo Lee and colleagues, with an educational amari from [employer]. Thrive Questionnaire Date Thrive assessed: 02/07/23 AUDIT C Alcohol Use Questionnaire (AUDIT-C) 1. How often do you have a drink containing alcohol?: 2-3 times a week 2. How many drinks containing alcohol do you have on a typical day when you are drinking?: 1 or 2 3. How often do you have six or more drinks on one occasion?: Never Total Score: 3 Score Reviewed/Action Taken: Yes CIERRA-7 AMB Questionnaire CIERRA-7 Date CIERRA - 7 assessed: 02/07/23 Source: Developed by Drs. Ezio Flores, Chemo Lee and colleagues, with an educational amari from [employer]. Review of Systems Const Denies chills, Denies headache(s) and Denies weight loss ENT Denies headache(s) Card Denies chest pain, Denies syncope, Denies irregular heart rhythm and Denies dyspnea Resp Denies chest congestion, Denies cough and Denies dyspnea GI Denies abdominal pain, Denies change in stool character, Denies nausea and Denies vomiting Musc Denies deformity and Denies joint swelling Neuro Denies syncope and Denies headache(s) Physical exam (Primary Care) Vital Signs: Last Vital Signs Pulse 67 05/27/23 14:02 BP 110/58 L 05/27/23 14:02 Pulse Ox 98 05/27/23 14:02 Oxygen Delivery Method Room Air 05/27/23 14:02 BMI result Body Mass Index 19.1 Tobacco/Smoking Status: Tobacco use Status Tobacco use date assessed 02/22/23 05/27/23 14:03 Patient Tobacco Use Status Former Tobacco user 05/27/23 14:03 PHQ-9: PHQ-9 Score PHQ-9: Total score 2 05/27/23 14:03 Depression Screening Interpretation: Negative Thrive Assessment: Date of Thrive Assessment Date Thrive assessed 02/07/23 05/27/23 14:03 Const General: cooperative, comfortable, no acute distress and alert Neck Neck: Yes no lymphadenopathy Thyroid: Thyroid normal Resp Effort & Inspection: normal respiratory effort Auscultation: clear to auscultation bilaterally Percussion: percussion normal Cardio Jugular venous distension: no JVD Palpation: normal PMI Rate: regular rate Rhythm: regular rhythm Heart sounds: S1 normal heart sound present and S2 normal heart sound present GI Inspection: Yes normal to inspection Palpation (GI): No hepatosplenomegaly present Skin General skin exam: no rashes or lesions noted Extrem General: Yes no clubbing, cyanosis or edema Assessment and Plan Assessment & Plan (1) Arthritis: Code(s): M19.90 - Unspecified osteoarthritis, unspecified site Plan: stable; same rx Coding Level of Care Code Est Pt Level 3 (45854) Diagnoses Arthritis M19.90
[2023-05-27 14:02] VITALS: BP 110/58; PULSE 67; O2SAT 98; BMI 19.1
== END 2023-05-27 14:19 | disposition home or self-care (01) ==
PROVIDERS: PCP Internal Medicine; Visit Provider Internal Medicine
DX: M19.90 Unspecified osteoarthritis, unspecified site (principal)
CPT/HCPCS: 99213

== ENCOUNTER 2023-11-19 13:10 | Outpatient (AMB) | payer MEDICARE, SELFPAY ==
--- NOTE | 2023-11-19 13:15 | A.OFFPC_ITS ---
Vital Signs 11/19/23 13:16 Height 6 ft 2 in Weight 144 lb 0.3 oz BMI 18.5 BP 112/58 L Blood Pressure Location Lt brachial Position Sitting Pulse 66 Pulse Source Pulse Oximeter Pulse Oximetry (%) 96 Oxygen Delivery Method Room Air Intake Visit Reasons: 6 month f/u Intake Note: Patient is here to follow up on 6 months Store Stock Associate Required: No Allergies No Known Allergies [No Known Allergies*] Allergy (Verified 11/19/23 13:16) Medication List - Last Reconciled 11/19/23 by Shahzad Palomares MD bicalutamide 50 mg PO DAILY bimatoprost 0.01% 1 drp ophthalmic (eye) DAILY calcium carbonate (Tums E-X) 300 mg PO BID PRN celecoxib (Celebrex) 200 mg PO DAILY Tobacco use date assessed: 11/19/23 Fall risk assessment: No Falls in past year Last assessed Fall Risk: 11/19/23 Dental Screening Dental Screen Date: 11/19/23 Did you have a dental visit in the last 12 months?: Yes Did you have a dental problem in the last 6 months where you did not have access to dental care?: No Was dental information given to patient?: Patient has dentist HPI 6 month f/u HPI Details arthritis knees and back; doing well PFSH Medical History Severe malnutrition Pancreatic lesion Pancreatic mass Weight loss Arthritis Surgical History History of endoscopic retrograde cholangiopancreatography Hx of hernia repair Hx of arthroscopic knee surgery History of cataract extraction History of hip replacement, total History of left inguinal hernia repair Family History Mother Ovarian cancer Father Prostate cancer CVA (cerebral vascular accident) Stenosis of artery Daughter Asthma Social History Household Members: Spouse Household Members Other:: Housing: House Are you a primary tire care manager to a significant other at home: No Do you presently have visiting nurse or other home services: Yes ([facility]) Alcohol intake: current Alcohol intake frequency: a few times a week Alcohol type: beer Patient Tobacco Use Status: Former Tobacco user Quit Date: 1965 Cigarette Packs Per Day: 1 Second Hand Smoke Exposure: No service: Yes Current occupational status: retired Cognitive needs: No Hearing needs: No Vision needs: No Questionnaire PHQ-9 Over the last 2 weeks, how often have you been bothered by any of the following problems? 1. Little interest or pleasure in doing things: not at all 2. Feeling down, depressed, or hopeless: not at all 3. Trouble falling or staying asleep, or sleeping too much: not at all 4. Feeling tired or having little energy: several days 5. Poor appetite or overeating: several days 6. Feeling bad about yourself - or that you are a failure or have let yourself or your family down: not at all 7. Trouble concentrating on things, such as reading the newspaper or watching television: not at all 8. Moving or speaking so slowly that other people could have noticed. Or the opposite - being so fidgety or restless that you have been moving around a lot more than usual: not at all 9. Thoughts that you would be better off or of hurting yourself in some way: not at all Total score: 2 Depression Screening Interpretation: Negative Depression Screening Done: Yes 69417 - PHQ-9 Billing: Yes Source: Developed by Drs. Ezio Flores, Candice Dangelo, Chemo Wren and colleagues, with an educational amari from [employer]. Thrive Questionnaire Date Thrive assessed: 11/19/23 I am a: Patient What is your living situation today?: I have a steady place to live Within the past 12 months, did the food you bought not last and you didn't have the money to get more?: Never true Within the past 12 months, did you worry whether your food would run out before you got money to buy more?: Never true Do you have trouble paying for medicines?: No Do you have trouble getting transportation to medical appointments?: No Do you have trouble paying your heating and electricity bill?: No Do you have trouble taking care of your child, family member or friend?: No Do you have trouble with day-to-day activities such as bathing, preparing meals, shopping, managing finances, etc.?: No Are you currently unemployed and looking for a job?: No Are you interested in more education?: No Please select the resources that you would like help with: None Currently or been in a relationship where the following occur: no concerns reported THRIVE Score: 0 AUDIT C Alcohol Use Questionnaire (AUDIT-C) 1. How often do you have a drink containing alcohol?: 2-3 times a week 2. How many drinks containing alcohol do you have on a typical day when you are drinking?: 1 or 2 3. How often do you have six or more drinks on one occasion?: Never Total Score: 3 Score Reviewed/Action Taken: Yes CIERRA-7 AMB Questionnaire CIERRA-7 Date CIERRA - 7 assessed: 11/19/23 Feeling nervous, anxious, or on edge: 0 = Not at all Not being able to stop or control worryin = Not at all Worrying too much about different things: 0 = Not at all Trouble relaxin = Not at all Being so restless that it is hard to sit still: 0 = Not at all Becoming easily annoyed or irritable: 0 = Not at all Feeling afraid as if something awful might happen: 0 = Not at all Total CIERRA-7 score (0-4 normal; 5-9 mild; 10-14 moderate; 15-21 severe): 0 Source: Developed by Drs. Ezio Flores, Candice Dangelo, Chemo Wren and colleagues, with an educational amari from [employer]. CIERRA-7 Assessment Billing CIERRA-7 Assessment Tool: CIERRA-7 Assessment 53470 Review of Systems Const Denies chills, Denies headache(s) and Denies weight loss ENT Denies headache(s) Card Denies chest pain, Denies syncope, Denies irregular heart rhythm and Denies dyspnea Resp Denies chest congestion, Denies cough and Denies dyspnea GI Denies abdominal pain, Denies change in stool character, Denies nausea and Denies vomiting Musc Denies deformity and Denies joint swelling Neuro Denies syncope and Denies headache(s) Physical exam (Primary Care) Vital Signs: Last Vital Signs Pulse 66 11/19/23 13:16 BP 112/58 L 11/19/23 13:16 Pulse Ox 96 11/19/23 13:16 Oxygen Delivery Method Room Air 11/19/23 13:16 BMI result Body Mass Index 18.5 Tobacco/Smoking Status: Tobacco use Status Tobacco use date assessed 11/19/23 11/19/23 13:19 Patient Tobacco Use Status Former Tobacco user 11/19/23 13:19 PHQ-9: PHQ-9 Score PHQ-9: Total score 2 11/19/23 13:19 Depression Screening Interpretation: Negative Thrive Assessment: Date of Thrive Assessment Date Thrive assessed 11/19/23 11/19/23 13:19 Currently or been in a relationship where the following occur: no concerns reported Const General: cooperative, comfortable, no acute distress and alert Neck Neck: Yes no lymphadenopathy Thyroid: Thyroid normal Resp Effort & Inspection: normal respiratory effort Auscultation: clear to auscultation bilaterally Percussion: percussion normal Cardio Jugular venous distension: no JVD Palpation: normal PMI Rate: regular rate Rhythm: regular rhythm Heart sounds: S1 normal heart sound present and S2 normal heart sound present GI Inspection: Yes normal to inspection Palpation (GI): No hepatosplenomegaly present Skin General skin exam: no rashes or lesions noted Extrem General: Yes no clubbing, cyanosis or edema Assessment and Plan Assessment & Plan (1) Arthritis: Code(s): M19.90 - Unspecified osteoarthritis, unspecified site Plan: stable; same rx Coding Level of Care Code Est Pt Level 3 (58247) Diagnoses Arthritis M19.90 Additional Codes CIERRA-7 Assessment Billing - CIERRA-7 Assessment Tool: CIERRA-7 Assessment 83547 ([id number])
[2023-11-19 13:16] VITALS: BP 112/58; PULSE 66; O2SAT 96; BMI 18.5
== END 2023-11-19 13:45 | disposition home or self-care (01) ==
PROVIDERS: PCP Internal Medicine; Visit Provider Internal Medicine
DX: M19.90 Unspecified osteoarthritis, unspecified site (principal)
CPT/HCPCS: 99213

== ENCOUNTER 2023-12-10 14:30 | Outpatient (AMB) | payer MEDICARE, SELFPAY ==
--- NOTE | 2023-12-10 14:33 | A.OFFVIS_ITS ---
Vital Signs 3 12/10/23 14:41 Height 6 ft 2 in Weight 145 lb BMI 18.6 BP 113/65 Blood Pressure Location Rt brachial Position Sitting Pulse 66 Intake Visit Reasons: unspecified growth Intake Note: This patient presents for a lump under left breast. Pt c/o; My PCP said it should be removed and sent to the lab , reports lump underneath left breast. 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 He denies any history of trauma but does report a new medication for treatment of his prostate which seems to predate the onset of the palpable mass. He denies any pain, redness or discharge. He denies a previous history of breast problems or breast surgery. Immediate family history is negative for breast cancer. PENDING SALE TO [facility] Medical History Severe malnutrition Pancreatic lesion Pancreatic mass Weight loss Arthritis Surgical History History of endoscopic retrograde cholangiopancreatography Hx of hernia repair Hx of arthroscopic knee surgery History of cataract extraction History of hip replacement, total History of left inguinal hernia repair Family History Mother Ovarian cancer Father Prostate cancer CVA (cerebral vascular accident) Stenosis of artery Daughter Asthma Social History Household Members: Spouse Household Members Other:: Housing: House Are you a primary care connector to a significant other at home: No Do you presently have visiting nurse or other home services: Yes ([facility]) Alcohol intake: current Alcohol intake frequency: a few times a week Alcohol type: beer Patient Tobacco Use Status: Former Tobacco user Quit Date: 1965 Cigarette Packs Per Day: 1 Second Hand Smoke Exposure: No service: Yes Current occupational status: retired Cognitive needs: No Hearing needs: No Vision needs: No Review of Systems Const All systems reviewed & are unremarkable except as noted in HPI and below Denies chills, Denies fever(s), Denies headache(s), Denies poor appetite and Denies weakness ENT Denies headache(s) Card Denies chest pain, Denies irregular heart rhythm, Denies palpitations and Denies dyspnea Resp Denies cough, Denies excessive phlegm production and Denies dyspnea GI Denies abdominal pain, Denies bloating, Denies change in bowel habits, Denies constipation, Denies heartburn, Denies diarrhea, Denies nausea and Denies vomiting Denies difficulty urinating and Denies urinary frequency Musc Denies back pain, Denies muscle weakness and Denies numbness Skin/Breast Denies changing lesions and Denies unusual bruising Neuro Denies headache(s), Denies numbness, Denies paresthesias and Denies weakness Psych Denies anxiety and Denies depression Endo Denies palpitations Ot/Lymph Denies lymphadenopathy Physical Exam Vital Signs: Last Vital Signs Pulse 66 12/10/23 14:41 BP 113/65 12/10/23 14:41 BMI result Body Mass Index 18.6 Const General: cooperative and no acute distress Nutritional Appearance: well nourished Orientation/consciousness: patient oriented x3 Limitations: no limitations HEENT Head: Yes normocephalic and Yes atraumatic Ears: hearing grossly normal bilaterally Chest Other: Left breast with a palpable mass located subareolar measuring approximately 2 cm. Mass is mobile within the breast tissue of fixation to the skin or chest wall. No enlarged lymph nodes are appreciated. Right breast is negative for any palpable mass. Chest/axillae images: 2 1. 2 cm palpable mass below left nipple, no skin change Resp Effort & Inspection: normal respiratory effort, no audible wheezes, no cough and no respiratory distress Cardio Jugular venous distension: no JVD GI Inspection: Yes normal to inspection Skin Other: Warm, dry, no rash Neuro General: patient oriented x3 Extrem General: Yes no clubbing, cyanosis or edema Assessment & Plan Assessment & Plan (1) Left breast mass: Code(s): N63.20 - Unspecified lump in the left breast, unspecified quadrant Category: Medical Qualifiers: Breast mass location: subareolar Qualified Code(s): N63.42 - Unspecified lump in left breast, subareolar Plan 88-year-old male patient presenting with a self identified palpable mass located below the left nipple. On examination the patient has a palpable 2 cm mass located below the nipple-areolar complex suggestive of gynecomastia. Patient is requested excision of this palpable mass and after discussion of the procedure, risks and alternatives, he consents to a left breast lumpectomy. This will be scheduled as a short-stay surgery at his earliest convenience. Coding Level of Care Code New Pt Level 4 (48572) Diagnoses Subareolar mass of left breast N63.42 Breast mass location: subareolar
[2023-12-10 14:41] VITALS: BP 113/65; PULSE 66; BMI 18.6
== END 2023-12-10 14:54 | disposition home or self-care (01) ==
PROVIDERS: PCP Internal Medicine; Visit Provider Surgery
DX: N63.42 Unspecified lump in left breast, subareolar (principal)
CPT/HCPCS: 99204

== ENCOUNTER → 2023-12-10 14:30 | Outpatient (BNVA) | payer MEDICARE, SELFPAY | PROVIDERS: PCP Internal Medicine; Visit Provider Surgery | DX: N63.42 Unspecified lump in left breast, subareolar (principal) | CPT/HCPCS: 99202 ==

== ENCOUNTER 2023-12-23 08:53 | Day surgery (SDC) | payer MEDICARE, SELFPAY ==
[2023-12-19 07:34] VITALS: BMI 18.6
--- OUTSIDE RECORDS SUMMARY | 2023-12-23 08:55 | XMS_ITS | Patient Health Record ---
Author Organization [facility] Address [address] [place] [id number] Care Team Providers Care In Store Banker Name Role Phone Jelani CANTOR, Shahzad Primary Care Provider Unavaila Atul Mckay Jr Unavailable [phone] HÉCTOR STEARNS Unavailable Unavailable ALLERGIES No Known Allergies REASON FOR REFERRAL No Information MEDICATIONS Medication SIG (Take, Route, Fr equency, Duration) Notes Start Date End Date Status Celecoxib 200 MG Oral for 90 A ctive Lumigan 0.01 % Ophthalmic for 90 Active IMMUNIZATIONS Vaccine Route Administration Date Status Comme nts Influenza Unknown 04/05/2021 Administered SOCIAL HISTORY Tobacco Use: Social History Observation Description Date Details (start date - stop date) Former Smoker NA - NA Sex Assigned At : Social History Observation Description Sex Assigned At Unknown Tobacco Use/Smoking Question Answer Notes Patient is a former smoker How long has it been since you last smoked? > 10 years Alcohol Screen Question Answer Notes Did you have a drink contain ing alcohol in the past year? Yes How often did you have a dri nk containing alcohol in the past year? Monthly or less (1 point) How many drinks did you have on a typical day when you were drinking in the past year? 1 or 2 drinks (0 point) How often did you have 6 or more drinks on one occasion in the past year? 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 [id number] PLAN OF TREATMENT Pending Test Test Name Order Date MRI ABD W&WO CONTRAST 03/20/2021 MRI ABD W&WO CONTRAST 07/20/2021 Insurance Providers Payer Name Payer Address Payer Phone Subscriber Number Group Number Insured Name Patient Relationship to Insured Coverage Start Date Coverage End Date MEDICARE OF [place] [address] [place] [address] [phone] [id number] GISELA MORGAN Self - patient is the insured [employer] ATT[employer] CLAIMS [address] [place] [address] [id number] GISELA MORGAN Self - patient is the insured MEDICAL (GENERAL) HISTORY Medical History History ICD Code Denies CA,DM,CVA,Lung disease,renal dise ase anemia lymphocytosis Surgical History Surgery Date(Month/Year) ercp 2020 total hip replacement 2019 inguinal hernia 2019
[2023-12-23 09:11] VITALS: BMI 18.6
[2023-12-23] MEDS: Lactated Ringers 1,000 ML 100 ML IVCONT (09:23)
[2023-12-23 09:31] VITALS: BP 133/73; PULSE 67; RESP 18; TEMP 36.8; O2SAT 96
--- NOTE | 2023-12-23 10:25 | HO.ANESPROP2 ---
Documented by User: Brii Dupree NP 12/19/23 13:54 HPI - Anesthesia Eval Consult details Narrative: 88yo M for Left Breast Lumpectomy CLL - follows with [facility] [place] onc, obs only PMFSH Active Problems Active Problems: All Active Problems Left breast mass (Acute) Cholelithiases (Acute) Common bile duct obstruction (Acute) Abdominal pain (Acute) Elevated PSA (Acute) Anemia (Acute) Elevated alkaline phosphatase level (Acute) Abnormal CT of the abdomen (Acute) Arthritis (Acute) Past Medical History Medical History Severe malnutrition Pancreatic lesion Pancreatic mass Weight loss Arthritis Family History Family History Mother Ovarian cancer Father Prostate cancer CVA (cerebral vascular accident) Stenosis of artery Daughter Asthma Surgical History Surgical History History of endoscopic retrograde cholangiopancreatography Hx of hernia repair Hx of arthroscopic knee surgery History of cataract extraction History of hip replacement, total History of left inguinal hernia repair Social History Social History Household Members: Spouse Household Members Other:: Housing: House Are you a primary managed care provider to a significant other at home: No Do you presently have visiting nurse or other home services: Yes ([facility]NA) Alcohol intake: current Alcohol intake frequency: a few times a week Alcohol type: beer Patient Tobacco Use Status: Former Tobacco user Quit Date: 1965 Cigarette Packs Per Day: 1 Second Hand Smoke Exposure: No Are you DNR?: No Advance Directives: No Advance Directives Information Provided: Yes Nutrition Risks: No Nutritional Risk service: Yes Current occupational status: retired Cognitive needs: No Hearing needs: No Vision needs: No Meds Allergies Allergy/AdvReac Type Severity Reaction Status Date / Time No Known Allergies Allergy Verified 12/23/23 09:30 [No Known Allergies*] Home Medications ?Medication ?Instructions ?Recorded ?Confirmed ?Last Taken ?Type bimatoprost 0.01 % eye drops 1 drp ophthalmic (eye) DAILY 01/16/21 12/23/23 03/13/21 History celecoxib 200 mg capsule (Celebrex) 200 mg PO DAILY 01/16/21 12/23/23 03/13/21 History calcium carbonate (Tums E-X) 300 mg PO BID PRN Indigestion 03/15/21 12/23/23 Unknown History bicalutamide 50 mg tablet 50 mg PO DAILY 05/27/23 12/23/23 Unknown History Exam Height,Weight and Vital Signs: Height 6 ft 2 in Weight 65.771 kg Pertinent Lab Results Pertinent Lab Results: Laboratory Tests 11/04/23 11:06 WBC 7.1 Hgb 11.8 L Hct 35.6 L Plt Count 219 Sodium 143 Potassium 4.8 Chloride 109 H Carbon Dioxide 27 BUN 26 H Creatinine 1.28 Narrative Narrative: EKG 2022 Vent. Rate : 084 BPM Atrial Rate : 084 BPM P-R Int : 134 ms QRS Dur : 138 ms QT Int : 372 ms P-R-T Axes : 056 -67 045 degrees QTc Int : 439 ms Normal sinus rhythm Right bundle branch block Left anterior fascicular block Bifascicular block Abnormal ECG When compared with ECG of 15-MAR-2021 17:22, No significant change was found Assessment and Plan Assessment Anesthesia Assessment: Chart Reviewed Documented by User: Saari Sequeira DO 12/23/23 11:01 [facility] Past Medical History Medical History Severe malnutrition Pancreatic lesion Pancreatic mass Weight loss Arthritis Family History Family History Mother Ovarian cancer Father Prostate cancer CVA (cerebral vascular accident) Stenosis of artery Daughter Asthma Family history of problems with anesthesia: No Surgical History Surgical History History of endoscopic retrograde cholangiopancreatography Hx of hernia repair Hx of arthroscopic knee surgery History of cataract extraction History of hip replacement, total History of left inguinal hernia repair History of Problems with Anesthesia: No Social History Social History Household Members: Spouse Household Members Other:: Housing: House Are you a primary managed care provider to a significant other at home: No Do you presently have visiting nurse or other home services: Yes ([facility]NA) Alcohol intake: current Alcohol intake frequency: a few times a week Alcohol type: beer Patient Tobacco Use Status: Former Tobacco user Quit Date: 1965 Cigarette Packs Per Day: 1 Second Hand Smoke Exposure: No Are you DNR?: No Advance Directives: No Advance Directives Information Provided: Yes Nutrition Risks: No Nutritional Risk service: Yes Current occupational status: retired Cognitive needs: No Hearing needs: No Vision needs: No Meds Allergies Allergy/AdvReac Type Severity Reaction Status Date / Time No Known Allergies Allergy Verified 12/23/23 09:30 [No Known Allergies*] Home Medications ?Medication ?Instructions ?Recorded ?Confirmed ?Last Taken ?Type bimatoprost 0.01 % eye drops 1 drp ophthalmic (eye) DAILY 01/16/21 12/23/23 03/13/21 History celecoxib 200 mg capsule (Celebrex) 200 mg PO DAILY 01/16/21 12/23/23 03/13/21 History calcium carbonate (Tums E-X) 300 mg PO BID PRN Indigestion 03/15/21 12/23/23 Unknown History bicalutamide 50 mg tablet 50 mg PO DAILY 05/27/23 12/23/23 Unknown History Exam Exam Date and Time: December 23, 2023 1025 Height,Weight and Vital Signs: Height 6 ft 2 in Weight 65.771 kg Height 6 ft 2 in Weight 65.771 kg Vital Signs Temperature 98.2 F 12/23/23 09:31 Pulse Rate 67 12/23/23 09:31 Respiratory Rate 18 12/23/23 09:31 Blood Pressure 133/73 12/23/23 09:31 Pulse Oximetry 96 12/23/23 09:31 Oxygen Delivery Method Room Air 12/23/23 09:31 Temperature 98.2 F 12/23/23 09:31 Pulse Rate 67 12/23/23 09:31 Respiratory Rate 18 12/23/23 09:31 Blood Pressure 133/73 12/23/23 09:31 Pulse Oximetry 96 12/23/23 09:31 Oxygen Delivery Method Room Air 12/23/23 09:31 Airway Mallampati Class: II TM Dist: >3cm Neck ROM: Full Loose/Missing/Broken Teeth: No (patient denies any loose or broken teeth) Heart: S1S2 Lungs: CTAB Assessment and Plan Assessment Anesthesia Assessment: Anesthesia Plan Discussed and Chart Reviewed Final Anesthetic Review Family History of Problems with Anesthesia: No History of Problems with Anesthesia: No NPO: Yes ASA Class: III Final Preanesthetic Review: No Changes in Pt Med Stat, Meds/Allgs Chart Reviewed, Consent Obtained/Reviewed and Anes Risks/Benef Reviewed Patient Risk: Intermediate Procedure Risk: Low Anesthetic Plan Anesthetic Plan: MAC: and Agree w/ Assess. and Plan Disposition: Standard PACU
--- NOTE | 2023-12-23 10:46 | MHC.SHP ---
Pre-Procedural Eval Section A - 24 Hr Update-Section A only Date of Service: 12/23/23 The patient is an INPATIENT: No Changes since office visit: Yes Patient answered all questions; No Cold of Flu in the past 2 weeks, No New Medical Problems and No Changes in Medication The patient has been examined within 24 hours of the surgical procedure. The History & Physical has been completed within 30 days and I have reviewed it.: Yes Section B - Complete if H&P > 30 days Chief Complaint: Unspecified lump in left breast, subareolar Allergies: Allergies Allergy/AdvReac Type Severity Reaction Status Date / Time No Known Allergies Allergy Verified 12/23/23 09:30 [No Known Allergies*] Plan Diagnosis/Plan: Unchanged I have reviewed the history and physical and performed a pertinent physical examination on my patient. No changes have occurred unless specified. Time Spent With Patient Time: Total time managing care of this patient today ____ minutes.
--- NOTE | 2023-12-23 11:44 | P.OP_ITS ---
Operative Note Operative Note Date of Service: 12/23/23 Narrative: Preoperative diagnosis: Left breast mass Postoperative diagnosis: Same Procedure: Left breast lumpectomy Surgeon: Hany Martinez MD Administrative Tech: Chelly Caldwell PA-C Anesthesia: Mac Indications for procedure: 88-year-old male patient presenting with palpable mass in the left breast measuring approximately 3 cm in diameter located directly below the nipple areolar complex. Findings are consistent with gynecomastia. No similar finding is noted on the right breast. Operative findings: 3 cm subareolar mass left breast Specimen: Left breast mass Estimated blood loss: 2 cc Complications: None Procedure details: Patient was brought to the OR placed in a supine position. After administering light sedation the patient's left breast was prepped with ChloraPrep and draped in a sterile fashion. A surgical time-out was called the consent confirmed. Patient had received preoperative antibiotics. Local anesthesia consisting of 0.5% Sensorcaine with lidocaine 1% was infiltrated around the left breast. A curvilinear incision was made around the areola in the lower quadrant and carried out through subcutaneous tissue. Electrocautery was then used to dissect over the breast mass and around the superior medial and lateral margins. It was then dissected off the chest wall and passed off the table. The specimen was sent to pathology for further examination. The wounds were then irrigated with saline solution and suctioned dry. Wounds were checked for hemostasis. Dermis was then reapproximated using interrupted 3-0 Polysorb sutures. Skin was closed using a running subcuticular 4-0 Polysorb suture. Steri-Strips 2 x 2 gauze and Tegaderm were then applied. The patient tolerated the procedure well. Sponge, instrument, and needle counts reported as correct. The patient was transferred to PACU in stable condition.
[2023-12-23 12:02] VITALS: BP 122/66; PULSE 56; RESP 16; TEMP 36.2; O2SAT 99
[2023-12-23 12:17] VITALS: BP 115/63; PULSE 55; RESP 14; TEMP 36.4; O2SAT 99
== END 2023-12-23 12:25 | disposition home or self-care (01) ==
PROVIDERS: PCP Internal Medicine; Visit Provider Surgery
PROC: (CPT 19301; principal; 2023-12-23 10:30)
DX: N62 Hypertrophy of breast (principal)
CPT/HCPCS: 19301; 88305; 88307; J0131; J0665; J0690; J2704; J3010

== ENCOUNTER → 2023-12-23 08:53 | Outpatient (BNV) | payer MEDICARE, SELFPAY | PROVIDERS: PCP Internal Medicine; Visit Provider Surgery | DX: N63.42 Unspecified lump in left breast, subareolar (principal) | CPT/HCPCS: 19301 ==

== ENCOUNTER 2023-12-31 11:08 | Outpatient (AMB) | payer MEDICARE, SELFPAY ==
--- NOTE | 2023-12-31 11:41 | MHC.OFFVIS ---
Vital Signs 12/31/23 11:46 Height 6 ft 2 in Weight 144 lb BMI 18.5 BP 119/61 Blood Pressure Location Lt brachial Position Sitting Pulse 60 Intake Visit Reasons: S/P Lt. breast lumpectomy Intake Note: Patient is seen in office for post op assessment post left breast lumpectomy. 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 He tolerated the procedure well and denies any ongoing chest symptoms. Pathology confirmed gynecomastia. He has been applying a bandage to the incision but denies any current discharge. [facility] Medical History Severe malnutrition Pancreatic lesion Pancreatic mass Weight loss Arthritis Surgical History Status post left breast lumpectomy (12/23/23) History of endoscopic retrograde cholangiopancreatography Hx of hernia repair Hx of arthroscopic knee surgery History of cataract extraction History of hip replacement, total History of left inguinal hernia repair Family History Mother Ovarian cancer Father Prostate cancer CVA (cerebral vascular accident) Stenosis of artery Daughter Asthma Social History Household Members: Spouse Household Members Other:: Housing: House Are you a primary care management associate to a significant other at home: No Do you presently have visiting nurse or other home services: Yes ([facility]) Alcohol intake: current Alcohol intake frequency: a few times a week Alcohol type: beer Patient Tobacco Use Status: Former Tobacco user Quit Date: 1967 Cigarette Packs Per Day: 1 Second Hand Smoke Exposure: No service: Yes Current occupational status: retired Cognitive needs: No Hearing needs: No Vision needs: No Physical Exam Vital Signs: Last Vital Signs Pulse 60 12/31/23 11:46 BP 119/61 12/31/23 11:46 BMI result Body Mass Index 18.5 Const General: comfortable Nutritional Appearance: well nourished Orientation/consciousness: patient oriented x3 Chest Other: Incision in the left breast is clean, dry, and intact with intact Steri-Strips. There is surrounding ecchymosis located below the incision. No hematoma or seroma is appreciated. No residual palpable mass is noted. Resp Other: Breathing comfortably on room air, no respiratory distress. Skin Other: Warm, dry, no rash Neuro General: patient oriented x3 Assessment & Plan Assessment & Plan (1) Gynecomastia: Code(s): N62 - Hypertrophy of breast Category: Medical Plan 88-year-old male patient status post left breast lumpectomy. Pathology was confirmed to be gynecomastia. He tolerated the procedure well and his wounds are healing nicely. He should follow up as needed. Coding Level of Care Code Global (37023) Diagnoses Gynecomastia N62
[2023-12-31 11:46] VITALS: BP 119/61; PULSE 60; BMI 18.5
== END 2023-12-31 11:51 | disposition home or self-care (01) ==
PROVIDERS: PCP Internal Medicine; Visit Provider Surgery
DX: N62 Hypertrophy of breast (principal)
CPT/HCPCS: 99024

== ENCOUNTER → 2023-12-31 11:08 | Outpatient (BNVA) | payer MEDICARE, SELFPAY | PROVIDERS: PCP Internal Medicine; Visit Provider Surgery | DX: N62 Hypertrophy of breast (principal) | CPT/HCPCS: 99212 ==

== ENCOUNTER 2024-05-25 13:01 | Outpatient (AMB) | payer MEDICARE, SELFPAY ==
[2024-05-25 13:04] VITALS: BP 124/62; PULSE 66; O2SAT 95; BMI 18.0
--- NOTE | 2024-05-25 13:04 | MHC.PC.OV ---
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 Required: No Accompanied by: Spouse Allergies No Known Allergies [No Known Allergies*] Allergy (Verified 05/25/24 13:04) Medication List - Last Reconciled 05/25/24 by Shahzad Palomares MD bicalutamide 50 mg PO DAILY bimatoprost 0.01% 1 drp ophthalmic (eye) DAILY calcium carbonate (Tums E-X) 300 mg PO BID PRN celecoxib (Celebrex) 200 mg PO DAILY Tobacco use date assessed: 11/19/23 Fall risk assessment: No Falls in past year Last assessed Fall Risk: 05/25/24 Dental Screening Dental Screen Date: 11/19/23 HPI 6mof\u HPI Details osteoarthritis on Celebrex; doing well with good pain control PFSH Medical History Severe malnutrition Pancreatic lesion Pancreatic mass Weight loss Arthritis Surgical History Status post left breast lumpectomy (12/23/23) History of endoscopic retrograde cholangiopancreatography Hx of hernia repair Hx of arthroscopic knee surgery History of cataract extraction History of hip replacement, total History of left inguinal hernia repair Family History Mother Ovarian cancer Father Prostate cancer CVA (cerebral vascular accident) Stenosis of artery Daughter Asthma Social History Household Members: Spouse Household Members Other:: Housing: House Are you a primary assistant child care teacher to a significant other at home: No Do you presently have visiting nurse or other home services: Yes ([facility]) Alcohol intake: current Alcohol intake frequency: a few times a week Alcohol type: beer Patient Tobacco Use Status: Former Tobacco user Tobacco use type: Cigarette Cigarette Packs Per Day: 1 e-Cigarette/Vaping Use: Never Used Second Hand Smoke Exposure: No service: Yes Current occupational status: retired Cognitive needs: No Hearing needs: No Vision needs: No Questionnaire PHQ-9 Over the last 2 weeks, how often have you been bothered by any of the following problems? 1. Little interest or pleasure in doing things: not at all 2. Feeling down, depressed, or hopeless: not at all 3. Trouble falling or staying asleep, or sleeping too much: not at all 4. Feeling tired or having little energy: several days 5. Poor appetite or overeating: several days 6. Feeling bad about yourself - or that you are a failure or have let yourself or your family down: not at all 7. Trouble concentrating on things, such as reading the newspaper or watching television: not at all 8. Moving or speaking so slowly that other people could have noticed. Or the opposite - being so fidgety or restless that you have been moving around a lot more than usual: not at all 9. Thoughts that you would be better off or of hurting yourself in some way: not at all Total score: 2 Depression Screening Interpretation: Negative Depression Screening Done: Yes 36887 - PHQ-9 Billing: Yes Source: Developed by Drs. Ezio Flores, Candice Dangelo, Chemo Wren and colleagues, with an educational amari from [employer]. Thrive Questionnaire Date Thrive assessed: 11/19/23 AUDIT C Alcohol Use Questionnaire (AUDIT-C) 1. How often do you have a drink containing alcohol?: 2-3 times a week 2. How many drinks containing alcohol do you have on a typical day when you are drinking?: 1 or 2 3. How often do you have six or more drinks on one occasion?: Never Total Score: 3 Score Reviewed/Action Taken: Yes CIERRA-7 AMB Questionnaire CIERRA-7 Date CIERRA - 7 assessed: 11/19/23 Source: Developed by Drs. Ezio Flores, Candice Dangelo, Chmeo Wren and colleagues, with an educational amari from [employer]. Review of Systems Const Denies chills, Denies headache(s) and Denies weight loss ENT Denies headache(s) Card Denies chest pain, Denies syncope, Denies irregular heart rhythm and Denies dyspnea Resp Denies chest congestion, Denies cough and Denies dyspnea GI Denies abdominal pain, Denies change in stool character, Denies nausea and Denies vomiting Musc Denies deformity and Denies joint swelling Neuro Denies syncope and Denies headache(s) Physical exam (Primary Care) Vital Signs: Last Vital Signs Pulse 66 05/25/24 13:04 BP 124/62 05/25/24 13:04 Pulse Ox 95 05/25/24 13:04 Oxygen Delivery Method Room Air 05/25/24 13:04 BMI result Body Mass Index 18.0 Tobacco/Smoking Status: Tobacco use Status Tobacco use date assessed 11/19/23 05/25/24 13:09 Patient Tobacco Use Status Former Tobacco user 05/25/24 13:09 Tobacco use type Cigarette 05/25/24 13:09 e-Cigarette/Vaping Use Never Used 05/25/24 13:09 PHQ-9: PHQ-9 Score PHQ-9: Total score 2 05/25/24 13:09 Depression Screening Interpretation: Negative Thrive Assessment: Date of Thrive Assessment Date Thrive assessed 11/19/23 05/25/24 13:09 Const General: cooperative, comfortable, no acute distress and alert Neck Neck: Yes no lymphadenopathy Thyroid: Thyroid normal Resp Effort & Inspection: normal respiratory effort Auscultation: clear to auscultation bilaterally Percussion: percussion normal Cardio Jugular venous distension: no JVD Palpation: normal PMI Rate: regular rate Rhythm: regular rhythm Heart sounds: S1 normal heart sound present and S2 normal heart sound present GI Inspection: Yes normal to inspection Palpation (GI): No hepatosplenomegaly present Skin General skin exam: no rashes or lesions noted Extrem General: Yes no clubbing, cyanosis or edema Coding Level of Care Code Est Pt Level 3 (55305) Diagnoses Arthritis M19.90 Assessment & Plan Assessment & Plan (1) Arthritis: Code(s): M19.90 - Unspecified osteoarthritis, unspecified site Category: Medical Plan: stable ;same rx
== END 2024-05-25 13:26 | disposition home or self-care (01) ==
PROVIDERS: PCP Internal Medicine; Visit Provider Internal Medicine
DX: M19.90 Unspecified osteoarthritis, unspecified site (principal)

== ENCOUNTER → 2024-05-25 13:01 | Outpatient (BNVA) | payer MEDICARE, SELFPAY | PROVIDERS: PCP Internal Medicine; Visit Provider Internal Medicine | DX: M19.90 Unspecified osteoarthritis, unspecified site (principal) | CPT/HCPCS: 96127; 99212 ==

== ENCOUNTER 2024-10-09 13:07 | Outpatient (AMB) | payer MEDICARE, SELFPAY ==
--- NOTE | 2024-10-09 13:11 | A.OFFPC_ITS ---
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 Accompanied by: Spouse Allergies No Known Allergies [No Known Allergies*] Allergy (Verified 10/09/24 13:12) Tobacco use date assessed: 10/09/24 Fall risk assessment: No Falls in past year Last assessed Fall Risk: 10/09/24 Dental Screening Dental Screen Date: 10/09/24 Did you have a dental visit in the last 12 months?: Yes Did you have a dental problem in the last 6 months where you did not have access to dental care?: No Was dental information given to patient?: Patient has dentist HPI 5 month f/u HPI Details has an elevated PSA and has a Dx of prostate cancer although no Bx done; wants to see [facility]rologist in the [facility]; feels well [facility] Medical History Severe malnutrition Pancreatic lesion Pancreatic mass Weight loss Arthritis Surgical History Status post left breast lumpectomy (12/23/23) History of endoscopic retrograde cholangiopancreatography Hx of hernia repair Hx of arthroscopic knee surgery History of cataract extraction History of hip replacement, total History of left inguinal hernia repair Family History Mother Ovarian cancer Father Prostate cancer CVA (cerebral vascular accident) Stenosis of artery Daughter Asthma Social History Household Members: Spouse Household Members Other:: Housing: Other Housing Other:: Assisted Living Facility in [place] Are you a primary customer care team coach to a significant other at home: No Do you presently have visiting nurse or other home services: Yes ([facility]) Alcohol intake: current Alcohol intake frequency: a few times a week Alcohol type: beer Patient Tobacco Use Status: Former Tobacco user Tobacco use type: Cigarette Cigarette Packs Per Day: 1 e-Cigarette/Vaping Use: Never Used Second Hand Smoke Exposure: No service: Yes Current occupational status: retired Cognitive needs: No Hearing needs: No Vision needs: Yes Questionnaire PHQ-9 Over the last 2 weeks, how often have you been bothered by any of the following problems? 1. Little interest or pleasure in doing things: not at all 2. Feeling down, depressed, or hopeless: not at all 3. Trouble falling or staying asleep, or sleeping too much: not at all 4. Feeling tired or having little energy: not at all 5. Poor appetite or overeating: not at all 6. Feeling bad about yourself - or that you are a failure or have let yourself or your family down: not at all 7. Trouble concentrating on things, such as reading the newspaper or watching television: not at all 8. Moving or speaking so slowly that other people could have noticed. Or the opposite - being so fidgety or restless that you have been moving around a lot more than usual: not at all 9. Thoughts that you would be better off or of hurting yourself in some way: not at all Total score: 0 Depression Screening Interpretation: Negative Depression Screening Done: Yes 57826 - PHQ-9 Billing: Yes Source: Developed by Drs. Ezio Flores, Candice Dangelo, Chemo Wren and colleagues, with an educational amari from [employer]. Thrive Questionnaire Date Thrive assessed: 10/09/24 I am a: Patient What is your living situation today?: I have a steady place to live Within the past 12 months, did the food you bought not last and you didn't have the money to get more?: Never true Within the past 12 months, did you worry whether your food would run out before you got money to buy more?: Never true Do you have trouble paying for medicines?: No Do you have trouble getting transportation to medical appointments?: No Do you have trouble paying your heating and electricity bill?: No Do you have trouble taking care of your child, family member or friend?: No Do you have trouble with day-to-day activities such as bathing, preparing meals, shopping, managing finances, etc.?: No Are you currently unemployed and looking for a job?: No Are you interested in more education?: No Please select the resources that you would like help with: None Currently or been in a relationship where the following occur: No concerns reported THRIVE Score: 0 AUDIT C Alcohol Use Questionnaire (AUDIT-C) 1. How often do you have a drink containing alcohol?: 2-3 times a week 2. How many drinks containing alcohol do you have on a typical day when you are drinking?: 1 or 2 3. How often do you have six or more drinks on one occasion?: Never Total Score: 3 Score Reviewed/Action Taken: Yes CIERRA-7 AMB Questionnaire CIERRA-7 Date CIERRA - 7 assessed: 10/09/24 Feeling nervous, anxious, or on edge: 0 = Not at all Not being able to stop or control worryin = Not at all Worrying too much about different things: 0 = Not at all Trouble relaxin = Not at all Being so restless that it is hard to sit still: 0 = Not at all Becoming easily annoyed or irritable: 0 = Not at all Feeling afraid as if something awful might happen: 0 = Not at all Total CIERRA-7 score (0-4 normal; 5-9 mild; 10-14 moderate; 15-21 severe): 0 Source: Developed by Drs. Ezio Flores, Candice Dangelo, Chemo Wren and colleagues, with an educational amari from [employer]. CIERRA-7 Assessment Billing CIERRA-7 Assessment Tool: CIERRA-7 Assessment 48025 Review of Systems Const Denies chills, Denies headache(s) and Denies weight loss ENT Denies headache(s) Card Denies chest pain, Denies syncope, Denies irregular heart rhythm and Denies dyspnea Resp Denies chest congestion, Denies cough and Denies dyspnea GI Denies abdominal pain, Denies change in stool character, Denies nausea and Denies vomiting Musc Denies deformity and Denies joint swelling Neuro Denies syncope and Denies headache(s) Physical exam (Primary Care) Vital Signs: Last Vital Signs Temp 97.3 F 10/09/24 13:12 Pulse 61 10/09/24 13:12 BP 120/74 10/09/24 13:12 Pulse Ox 98 10/09/24 13:12 Oxygen Delivery Method Room Air 10/09/24 13:12 BMI result Body Mass Index 19.8 Tobacco/Smoking Status: Tobacco use Status Tobacco use date assessed 10/09/24 10/09/24 13:20 Patient Tobacco Use Status Former Tobacco user 10/09/24 13:20 Tobacco use type Cigarette 10/09/24 13:20 e-Cigarette/Vaping Use Never Used 10/09/24 13:20 PHQ-9: PHQ-9 Score PHQ-9: Total score 0 10/09/24 14:50 Depression Screening Interpretation: Negative Thrive Assessment: Date of Thrive Assessment Date Thrive assessed 10/09/24 10/09/24 13:20 Currently or been in a relationship where the following occur: No concerns reported Const General: cooperative, comfortable, no acute distress and alert Neck Neck: Yes no lymphadenopathy Thyroid: Thyroid normal Resp Effort & Inspection: normal respiratory effort Auscultation: clear to auscultation bilaterally Percussion: percussion normal Cardio Jugular venous distension: no JVD Palpation: normal PMI Rate: regular rate Rhythm: regular rhythm Heart sounds: S1 normal heart sound present and S2 normal heart sound present GI Inspection: Yes normal to inspection Palpation (GI): No hepatosplenomegaly present Skin General skin exam: no rashes or lesions noted Extrem General: Yes no clubbing, cyanosis or edema Coding Level of Care Code Est Pt Level 3 (46107) Diagnoses Prostate cancer C61 Additional Codes CIERRA-7 Assessment Billing - CIERRA-7 Assessment Tool: CIERRA-7 Assessment 53747 ([id number]) PHQ-9 - 06429 - PHQ-9 Billing: Yes ([id number]) Assessment & Plan Assessment & Plan (1) Prostate cancer: Code(s): C61 - Malignant neoplasm of prostate Category: Medical Plan: referred to urol Orders: Referrals Urology Referral C61 - Malignant neoplasm of prostate
[2024-10-09 13:12] VITALS: BP 120/74; PULSE 61; TEMP 36.3; O2SAT 98; BMI 19.8
--- OUTSIDE RECORDS SUMMARY | 2024-10-09 14:44 | XMS_ITS | Patient Health Record ---
Author Organization [facility] Address [address] [place] [id number] Care Team Providers Care Business Travel Consultant Name Role Phone Jelani CANTOR, Shahzad Primary Care Provider Unavaila Atul Mckay Jr Unavailable [phone] HÉCOTR STEARNS Unavailable Unavailable Allergies No Known Allergies Reason For Referral No Information Medications Medication SIG (Take, Route, Fr equency, Duration) Notes Start Date End Date Status Celecoxib 200 MG Oral for 90 A ctive Lumigan 0.01 % Ophthalmic for 90 Active Immunizations Vaccine Route Administration Date Status Comme nts Influenza Unknown 04/05/2021 Administered Social History Tobacco Use: Social History Observation Description Date Details (start date - stop date) Former Smoker NA - NA Tobacco Use/Smoking Question Answer Notes Patient is [...] Never (0 point) Points 1 Interpretation Negative Section Notes: stopped smoking in 1967 occasional beer or manhattan stopped smoking in 1967 occasional beer or [place] Problems Problem Type SNOMED Code ICD Code Onset Dates Problem Status W/U Status Risk Notes Problem Constipation (53881796) Constipation (K59.00) Active confirmed Problem 074553381 Abn findings-GI tract (R93.3) Active confirmed Problem Biliary stricture (938904719) 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) Active confirmed Problem 785595122 Common bile duct stone (K80.50) Active confirmed Problem 560575698 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 Plan Of Treatment Pending Test Test Name Order Date MRI ABD W&WO CONTRAST 03/20/2021 MRI ABD W&WO CONTRAST 07/20/2021 Insurance Providers Payer Name Payer Address Payer Phone Subscriber Number Group Number Insured Name Patient Relationship to Insured Coverage Start Date Coverage End Date MEDICARE OF [place] [address] [place] [address] [id number] GISELA MORGAN Self - patient is the insured [employer] CLAIMS [address] [place] [address] [id number] GISELA MORGAN Self - patient is the insured Medical (General) History Medical History History ICD Code Denies RI,DM,CVA,Lung disease,renal dise ase anemia lymphocytosis Surgical History Surgery Date(Month/Year) ercp 2020 total hip replacement 2019 inguinal hernia 2018
== END 2024-10-09 13:49 | disposition home or self-care (01) ==
PROVIDERS: PCP Internal Medicine; Visit Provider Internal Medicine
DX: C61 Malignant neoplasm of prostate (principal)

== ENCOUNTER → 2024-10-09 13:07 | Outpatient (BNVA) | payer MEDICARE, SELFPAY | PROVIDERS: PCP Internal Medicine; Visit Provider Internal Medicine | DX: C61 Malignant neoplasm of prostate (principal) | CPT/HCPCS: 96127; 99212 ==

== ENCOUNTER 2024-11-25 08:24 | Outpatient (AMB) | payer MEDICARE, SELFPAY ==
--- NOTE | 2024-11-25 08:34 | A.OFFVIS_ITS ---
Intake Visit Reasons: prostate cancer Intake Note: Patient is present for PROSTATE CANCER Urology Medication:NONE Antibiotic Allergy:NONE Blood Thinner:NONE Test Bore Helper Required: No Allergies No Known Allergies [No Known Allergies*] Allergy (Verified 11/25/24 08:35) HPI Comments Details: Dexter is a pleasant male. He is a patient of Dr. Palomares. He seen for the following urologic conditions - question of prostate cancer Previous diagnosis made from PSA spike a [facility] - PSA spike led to initiation of Biclutamide which reduced PSA. - No prostate biopsy performed; past reluctance based on perceived risk. - Reports mild urinary urgency and frequency; attributes mostly to age. - Symptoms are stable without significant progression. PSA - 09/24 20, 11/27 2.3 on bicalutamide Urinary Symptoms Review - Reports urinary urgency and frequency. - Noted no new or worsening symptoms, with current stability. - No significant incontinence episodes reported. Plan for prostate biopsy and prostate MRI to complete staging and assess for risk of progression PFSH Medical History Severe malnutrition Pancreatic lesion Pancreatic mass Weight loss Arthritis Surgical History Status post left breast lumpectomy (12/23/23) History of endoscopic retrograde cholangiopancreatography Hx of hernia repair Hx of arthroscopic knee surgery History of cataract extraction History of hip replacement, total History of left inguinal hernia repair Family History Mother Ovarian cancer Father Prostate cancer CVA (cerebral vascular accident) Stenosis of artery Daughter Asthma Social History Household Members: Spouse Household Members Other:: Housing: Other Housing Other:: Assisted Living Facility in [place] Are you a primary field care coordinator to a significant other at home: No Do you presently have visiting nurse or other home services: Yes ([facility]) Alcohol intake: current Alcohol intake frequency: a few times a week Alcohol type: beer Patient Tobacco Use Status: Former Tobacco user Tobacco use type: Cigarette Cigarette Packs Per Day: 1 e-Cigarette/Vaping Use: Never Used Second Hand Smoke Exposure: No service: Yes Current occupational status: retired Cognitive needs: No Hearing needs: No Vision needs: Yes Review of Systems Const Denies chills and Denies fever(s) Card Reports no additional complaints and Denies syncope Resp Denies cough GI Denies abdominal pain and Denies heartburn Reports as per HPI and Denies change in libido Neuro Denies syncope Psych Denies change in libido Endo Denies change in libido Physical Exam Const General: cooperative, healthy appearing, comfortable and no acute distress Orientation/consciousness: patient oriented x3 HEENT Face and sinus: Yes normal facial exam Mouth: moist mucous membranes Neck Neck: Yes normal visual inspection, Yes full ROM and Yes trachea midline Chest Chest palpation & inspection: normal inspection of the chest Resp Effort & Inspection: normal respiratory effort, able to speak in complete sentences and no respiratory distress GI Inspection: Yes normal to inspection Back/Spine/Pelvis Cervical Spine: normal cervical lordosis Thoracic/Lumbar Spine: thoracic and lumbar spine normal to inspection Skin General skin exam: no rashes or lesions noted Neuro General: patient oriented x3, gait normal, tone normal and moves all extremities Extrem General: Yes normal to inspection and Yes capillary refill normal Assessment & Plan Assessment & Plan (1) Prostate cancer: Code(s): C61 - Malignant neoplasm of prostate Category: Medical Plan Plan Patient informed verbally consented to the use of an ambient scribe 1. Prostate Cancer Monitor PSA levels, consider biopsy, and MRI. Continue Biclutamide. Evaluate risk of metastasis. 2. Elevated Psa Monitor and assess with imaging for disease extent. MRI anticipated. 3. Urinary Frequency And Urgency Management through monitoring. Consider future therapy if symptoms progress. Discussion Notes During our discussion, I outlined issues concerning the spike in prostate- specific antigen (PSA) and ongoing prostate cancer management. We covered the need for further diagnostic imaging, especially a prostate MRI and a potential biopsy, to assess the progression or aggressiveness of the malignancy. The use and continued prescription of Biclutamide were evaluated, alongside a surveillance strategy for PSA levels. I emphasized the importance of imaging to map the current status of the prostate cancer and decide subsequent steps. We will re-evaluate the necessity of these interventions after diagnostic clarity. Consent for MRI imaging was discussed, focusing on benefits, risks, and potential changes in treatment strategy following results. Follow-up plans are set post-imaging to refine the management pathway considering diagnostic outcomes. Patient Instructions - Continue current medications as advised until a follow-up visit. - Go for the prostate MRI and any other labs if scheduled. - Monitor for any new urinary symptoms, such as significant pain or incontinence. - Schedule and attend follow-up appointments promptly. - Report any significant changes to symptoms immediately. Orders: Orders Testosterone, Total Today C61 - Malignant neoplasm of prostate MR Prostate wo/w con Today C61 - Malignant neoplasm of prostate Prostate Specific Antigen Today C61 - Malignant neoplasm of prostate Coding Level of Care Code New Pt Level 4 (70587) Complex EM visit Add On G2211 Diagnoses Prostate cancer C61
--- OUTSIDE RECORDS SUMMARY | 2024-11-25 08:44 | XMS_ITS | Patient Health Record ---
Author Organization [facility] Address [address] [place] [id number] Care Team Providers Care Nurse Practitioner Adult Name Role Phone Jelani CANTOR, Shahzad Primary Care Provider Unavaila Atul Mckay Jr Unavailable HÉCTOR STEARNS Unavailable Unavailable Allergies No Known Allergies [...] Status W/U Status Risk Notes Problem Constipation (48193035) Constipation (K59.00) Active confirmed Problem 481652260 Abn findings-GI tract (R93.3) Active confirmed Problem Biliary stricture (527789859) 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) Active confirmed Problem 465062058 Common bile duct stone (K80.50) Active confirmed Problem 955612076 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 Plan Of Treatment Pending Test Test Name Order Date MRI ABD W&WO CONTRAST 03/20/2021 MRI ABD W&WO CONTRAST 07/20/2021 Insurance Providers Payer Name Payer Address Payer Phone Subscriber Number Group Number Insured Name Patient Relationship to Insured Coverage Start Date Coverage End Date MEDICARE OF [place] [address] [place] [address] [id number] GISELA MORGAN Self - patient is the insured [employer] ATT[employer] CLAIMS [address] [place] [address] [id number] GISELA MORGAN Self - patient is the insured Medical (General) History Medical History History ICD Code Denies [place],DM,CVA,Lung disease,renal dise ase anemia lymphocytosis Surgical History Surgery Date(Month/Year) ercp 2020 total hip replacement 2019 inguinal hernia 2018
== END 2024-11-25 09:35 | disposition home or self-care (01) ==
LOC: HO.HUSH 08:25
PROVIDERS: PCP Internal Medicine; Visit Provider Urology
DX: C61 Malignant neoplasm of prostate (principal)
CPT/HCPCS: 99204; G2211

== ENCOUNTER → 2024-11-25 08:24 | Outpatient (BNVA) | payer MEDICARE, SELFPAY | PROVIDERS: PCP Internal Medicine; Visit Provider Urology | DX: Z13.89 Encounter for screening for other disorder (principal) | CPT/HCPCS: 99202 ==

== ENCOUNTER 2024-11-25 09:37 | Outpatient (REF) | payer MEDICARE, SELFPAY ==
[2024-11-25 11:10] LABS: Prostate Specific Antigen 2.24 ng/mL (<0.05-4.0)
[2024-11-29 14:22] LABS: Testosterone, Total 833 ng/dL (250-1100)
== END 2024-11-25 09:38 | disposition home or self-care (01) ==
LOC: HO.10HDL 09:37
PROVIDERS: Visit Provider Urology
DX: Z12.5 Encounter for screening for malignant neoplasm of prostate (principal); C61 Malignant neoplasm of prostate
CPT/HCPCS: 36415; 84153; 84403; 99202

== ENCOUNTER → 2024-12-07 09:39 | Outpatient (BNV) | payer MEDICARE, SELFPAY | PROVIDERS: Visit Provider Radiology Diagnostic Radiology | DX: N32.89 Other specified disorders of bladder (principal) | CPT/HCPCS: 72197 ==

== ENCOUNTER 2024-12-07 09:48 | Outpatient (REF) | payer MEDICARE, SELFPAY ==
--- NOTE | ~2024-12-07 | MR_ITS ---
EXAMINATION: MR PROSTATE WITHOUT THEN WITH IV CONTRAST HISTORY: C61 - Malignant neoplasm of prostate TECHNIQUE: 1.5T body coil survey of the pelvis was performed. Phase array coil imaging of the prostate was performed in multiplanar high resolution axial, coronal, sagittal fast spin echo T2 and axial T1 weighted imaging sequences. Axial diffusion imaging at intermediate and high field performed with ADC mapping. Next, mL Gadavist was given by intravenous infusion, and dynamic axial imaging performed. COMPARISON: There are no prior studies for comparison. CLINICAL DATA: Most recent PSA: 2.3 ng/mL on 11/2024 PSA Density: 0.062 ng/mL squared Prostate Biopsy: None reported FINDINGS: Prostate size: 4.5 x 4.8 x 3.3 cm. Calculated prostate volume is 37.1 mL. Hemorrhage: None. Transitional Zone: There is moderate to marked heterogeneous nodular hypertrophy of the transitional zone. Peripheral Zone: There is a 1.8 cm area of interest occupying the entire right peripheral zone extending from the mid gland to the apex (series 7, images 19-23) with imaging characteristics as follows: Lesion #1: DWI PI-RADS v2.1 score: 5 T2 PI-RADS v2.1 score: 5 DCE PI-RADS v2.1 score: + Overall PI-RADS v2.1 score: 5 Capsular contact: yes Extracapsular extension: There is spiculation of the fat at the right lateral aspect of the prostate, suspicious for extracapsular extension. Seminal vesicle invasion: None Neurovascular bundle involvement: Equivocal Seminal Vesicles/Ejaculatory Ducts: Symmetric and normal in signal and caliber. Urinary bladder: There is an 8 mm polypoid lesion in the right lateral aspect of the urinary bladder. Pelvic Lymph Nodes: No obturator or internal iliac lymph nodes meeting size criteria for adenopathy. Marrow Signal: Normal marrow signal and enhancement without focal lesion identified. Patient is status post left total hip arthroplasty. MR/MR Prostate wo/w con IMPRESSION: 1. 1.8 cm mass in the right peripheral zone extending from the mid gland to the apex as described, highly suspicious for clinically significant prostate carcinoma. 2. 8 mm polypoid lesion in the right lateral aspect of the urinary bladder, suspicious for neoplasm. Further evaluation with cystoscopy is recommended. PI-RADS 5: Very high (clinically significant cancer is highly likely to be present) PI-RADS Assessment Categories PI-RADS 1: Very low (clinically significant cancer is highly unlikely to be present) PI-RADS 2: Low (clinically significant cancer is unlikely to be present) PI-RADS 3: Intermediate (the presence of clinically significant cancer is equivocal) PI-RADS 4: High (clinically significant cancer is likely to be present) PI-RADS 5: Very high (clinically significant cancer is highly likely to be present) [employer]. MR Prostate Imaging Reporting and Data System version 2.1. [email or web address] Electronically signed by: Ezio Burch MD 12/07/2024 11:26 AM EDT
[2024-12-07] MEDS: gadobutroL 7.5 ML VIAL IVPUSH (10:53)
== END 2024-12-07 09:49 | disposition home or self-care (01) ==
LOC: HO.MRI 09:48
PROVIDERS: Visit Provider Urology
DX: C61 Malignant neoplasm of prostate (principal)
CPT/HCPCS: 72197; A9585

== ENCOUNTER 2024-12-22 07:49 | Outpatient (REF) | payer MEDICARE, SELFPAY ==
--- OUTSIDE RECORDS SUMMARY | 2024-12-22 07:51 | XMS_ITS | Patient Health Record ---
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 confirmed Problem 595858944 Common bile duct stone (K80.50) Active confirmed Problem 388559194 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 Plan Of Treatment Pending Test Test Name Order Date MRI ABD W&WO CONTRAST 03/20/2021 MRI ABD W&WO CONTRAST 07/20/2021 Insurance Providers Payer Name Payer Address Payer Phone Subscriber Number Group Number Insured Name Patient Relationship to Insured Coverage Start Date Coverage End Date MED[place]ARE OF [place] [address] [place] [address] [id number] GISELA MORGAN Self - patient is the insured [employer] ATTN CLAIMS [address] [place] [address] [phone] [id number] GISELA MORGAN Self - patient is the insured Medical (General) History Medical History History ICD Code Denies [place],DM,CVA,Lung disease,renal dise ase anemia lymphocytosis Surgical History Surgery Date(Month/Year) ercp 2020 total hip replacement 2019 inguinal hernia 2018
--- NOTE | 2024-12-22 08:26 | W.PM.OPN ---
Operative Note Operative Note Date of Service: 12/22/24 Narrative: Preoperative diagnosis: Prostate Cancer Postoperative diagnosis: Prostate Cancer Procedure: 1. transrectal ultrasound measurement of prostate 2. transrectal ultrasound-guided pudendal nerve block 3. transrectal ultrasound-guided prostate biopsy 12 core Surgeon: Dr. Gildardo Ferrari Anesthetic: 10cc 1% lidocaine Indications for procedure: Prostate Cancer - MRI 1.8cm lesion Counselling: Technical aspects, risks and benefits of proposed procedure were discussed in full. All questions have been answered, written consent has been obtained and patient agrees to proceed. Procedure: The patient was brought into the procedure area and placed in a left lateral decubitus position. Patient identity confirmed. Perioperative antibiotics confirmed. Safety pause time out performed. JOB was performed to dilate rectal sphincter Iodine 10cc with 60 cc gel was placed per rectum to reduce infection risk using a catheter tip syringe. 8 Hz Paco rectal end-fire ultrasound probe was placed transrectally without difficulty. The prostate was visualized. Seminal vesicles were normal. Prostate margins were clearly demarcated. Bladder was seen superiorly. No cystic structures were noted No calcifications were noted at the surgical margin The prostate was otherwise homogeneous in nature The prostate was measured in 3 dimensions Prostatic Width: 5.1 cm Prostatic Height: 4.6 cm Urethral Length: 5.3 cm Total volume equals : 65 ml An ultrasound-guided pudendal nerve block was performed using a 22 gauge spinal needle in the sagittal plane. 4 cc of 1% lidocaine placed at the junction of each seminal vesicle and 2 cc placed at the apex of the prostate. A 12 core biopsy was performed with 6 cores each side using an 18 gauge prostate biopsy gun. Two cores each were taken at the prostate apex, mid and base on each side. Cores were spaced between lateral and medial aspects. Each core was examined as placed on specimen foam as part of director of quality control to ensure a minimum 1 cm of length and minimal discontinuity. He tolerated the procedure well with minimal rectal bleeding. Blood pressure remained stable following procedure. He was able to ambulate to bathroom after 5 minutes. Printed instructions regarding antibiotic use and common adverse events from the procedure such as low-grade temperature, potential infection and bleeding were given. He understands to call the office or go to an emergency room should any of these events arise. Pathology: 12 core prostate biopsy. CPT code 10042: Transrectal ultrasound; this is a diagnostic test for evaluation of the prostate and surrounding structures, looking for abnormalities or suspicious areas worrisome for cancer CPT code 61113: Biopsy, prostate; needle or punch, single or multiple, any approach CPT code 73343: Ultrasonic guidance for needle placement (eg, biopsy, aspiration, injection, localization device), imaging supervision and interpretation
[2024-12-22] MEDS: Lidocaine HCl 1 % MPF 5 ML VIAL 10 ML SUBCUT (08:31)
== END 2024-12-22 07:50 | disposition home or self-care (01) ==
LOC: HO.US 07:49
PROVIDERS: Visit Provider Urology
DX: C61 Malignant neoplasm of prostate (principal)
CPT/HCPCS: 55700; 76942; 88305; J2003

== ENCOUNTER → 2024-12-22 07:49 | Outpatient (BNV) | payer MEDICARE, SELFPAY | PROVIDERS: Visit Provider Urology | DX: C61 Malignant neoplasm of prostate (principal) | CPT/HCPCS: 55700; 76872; 76942 ==

== ENCOUNTER 2024-12-31 11:31 | Outpatient (AMB) | payer MEDICARE, SELFPAY ==
--- NOTE | 2024-12-31 11:23 | MHC.OFFVIS ---
Intake Visit Reasons: Prostate biopsy results Intake Note: Patient is present for PROSTATE Biopsy Results Urology Medication:NONE Antibiotic Allergy:NONE Blood Thinner:NONE Cardiac Cath Lab Technologist Required: No Allergies No Known Allergies [No Known Allergies*] Allergy (Verified 12/31/24 11:26) HPI Comments Details: Dexter is a pleasant male. He is a patient of Dr. Palomares. He seen for the following urologic conditions - question of prostate cancer Telemedicine Evaluation 15 min Consultation fflick Matt Video Follow-up from prostate biopsy Discussion of prostate biopsy. Grade group 5. No evidence of metastatic disease. Initiate GnRH for 18 months Prostate MRI 09/29 - 1.8 cm mass in the right peripheral zone extending from the mid gland to the apex as described, highly suspicious for clinically significant prostate carcinoma. No lymphadenopathy, no bone marrow changes. [facility] - PSA spike led to initiation of Biclutamide which reduced PSA. - No prostate biopsy performed; past reluctance based on perceived risk. PSA - 09/24 19, 11/27 2.3 on bicalutamide Prostate Cancer - Grade Group 5 Histologic grade:Todd score: 9 (4+5) (left base medial, left apex medial, right base lateral and medial, right mid lateral and medial,and right apex lateral and medial), 8 (4+4) (left base lateral and left mid medial) % of pattern 4: 73% % of pattern 5: 27% Grade group: 5 and 4 Tumor quantitation: Number cores positive: 11 Total number of cores: 14 - % of tissue involved: 33 % Periprostatic fat inv.: Not identified Seminal vesicle inv.: Not identified Perineural inv.: Present Lymphatic and/or vascular invasion: Suspicious [facility] Medical History Severe malnutrition Pancreatic lesion Pancreatic mass Weight loss Arthritis Surgical History Status post left breast lumpectomy (12/23/23) History of endoscopic retrograde cholangiopancreatography Hx of hernia repair Hx of arthroscopic knee surgery History of cataract extraction History of hip replacement, total History of left inguinal hernia repair Family History Mother Ovarian cancer Father Prostate cancer CVA (cerebral vascular accident) Stenosis of artery Daughter Asthma Social History Household Members: Spouse Household Members Other:: Housing: Other Housing Other:: Assisted Living Facility in [place] Are you a primary restorative care technician to a significant other at home: No Do you presently have visiting nurse or other home services: Yes ([facility]) Alcohol intake: current Alcohol intake frequency: a few times a week Alcohol type: beer Patient Tobacco Use Status: Former Tobacco user Tobacco use type: Cigarette Cigarette Packs Per Day: 1 e-Cigarette/Vaping Use: Never Used Second Hand Smoke Exposure: No service: Yes Current occupational status: retired Cognitive needs: No Hearing needs: No Vision needs: Yes Review of Systems Const All systems reviewed & are unremarkable except as noted in HPI and below Reports no additional complaints Resp Reports no additional complaints GI Reports no additional complaints Reports as per HPI Musc Reports no additional complaints Physical Exam Telemedicine evaluation Appropriate responses Regular breathing rate and rhythm HEENT Head: Yes normal to inspection Ears: hearing grossly normal bilaterally Eyes General: appearance normal, both eyes and all related structures Neck Neck: Yes normal visual inspection Chest Chest palpation & inspection: normal inspection of the chest Resp Effort & Inspection: normal respiratory effort and able to speak in complete sentences Telehealth Telehealth Telehealth Platform: fflick Location of provider rendering services: practice address Location of patient: address on file Patient Identification confirmed using: Name, : Yes Telehealth method: video Patient verbally consented to treatment: Yes Patient verbally consented to billing insurance company: Yes Patient informed of any privacy concerns related to visit: Yes Minutes spent on Phone/Video with Pt.: 15 Assessment & Plan Assessment & Plan (1) Prostate cancer: Code(s): C61 - Malignant neoplasm of prostate Category: Medical Plan Initiate GnRH Three-month follow-up lab work Orders: Orders Prostate Specific Antigen 3 Months C61 - Malignant neoplasm of prostate Testosterone, Total 3 Months C61 - Malignant neoplasm of prostate Medications: Discontinued levofloxacin take 1 tablet day before procedure, 1 tablet day of procedure and 1 tablet day after procedure Discontinued Reason: Doctor's Order 500 mg PO DAILY 3 days 3 tabs 0RF C61 - Malignant neoplasm of prostate Patient Instructions: This note is constructed using voice recognition software. While every effort has been made to ensure accuracy special education para professional errors may have been included. Imaging studies, laboratory and physical exam results were discussed and reviewed in detail. No major barriers to patient understanding were identified. An opportunity to ask questions regarding the treatment plan was provided. All questions were answered. The patient expressed understanding and agreement with the above treatment plan. The patient is aware they should contact our office by phone for worsening of their current condition or the appearance of new urologic symptoms. Compliance is encouraged with any medications and followup testing that is ordered. It is a privilege to participate in the urologic care of your patient. If you have any questions or concerns regarding treatment for the above conditions, or other urologic issues, please do not hesitate to contact me. The office telephone contact is [phone]. Sincerely, Dr Gildardo Ferrari MD, [facility] - Urology Compassionate Specialist Care for the Genitourinary System Coding Level of Care Code Tele Est Pt Level 4 (82367) Complex EM visit Add On G2211 Diagnoses Prostate cancer C61
--- OUTSIDE RECORDS SUMMARY | 2024-12-31 11:52 | XMS_ITS | Patient Health Record ---
Author Organization [facility] Address [address] [place] [address] Care Team Providers Care Senior Php Web Developer Name Role Phone Jelani CANTOR, Shahzad Primary Care Provider Unavaila Atul Mckay Jr Unavailable [phone] HÉCTOR STEARNS Unavailable Unavailable Allergies No Known [...] Status W/U Status Risk Notes Problem Constipation (46386187) Constipation (K59.00) Active confirmed Problem 399782423 Abn findings-GI tract (R93.3) Active confirmed Problem Biliary stricture (910808577) 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) Active confirmed Problem 788171655 Common bile duct stone (K80.50) Active confirmed Problem 417746158 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 Plan Of Treatment Pending Test Test Name Order Date MRI ABD W&WO CONTRAST 03/20/2021 MRI ABD W&WO CONTRAST 07/20/2021 Insurance Providers Payer Name Payer Address Payer Phone Subscriber Number Group Number Insured Name Patient Relationship to Insured Coverage Start Date Coverage End Date MED[place]ARE OF [place] [address] [place] [address] [id number] GISELA MORGAN Self - patient is the insured MED[employer] ATTN CLAIMS [address] [place] [phone] [id number] GISELA MORGAN Self - patient is the insured Medical (General) History Medical History History ICD Code Denies [place],DM,CVA,Lung disease,renal dise ase anemia lymphocytosis Surgical History Surgery Date(Month/Year) ercp 2020 total hip replacement 2019 inguinal hernia 2018
== END 2024-12-31 12:29 | disposition home or self-care (01) ==
LOC: HO.HUSH 11:31
PROVIDERS: Visit Provider Urology
DX: C61 Malignant neoplasm of prostate (principal)
CPT/HCPCS: 99214; G2211

== ENCOUNTER → 2024-12-31 11:31 | Outpatient (BNVA) | payer MEDICARE, SELFPAY | PROVIDERS: Visit Provider Urology | DX: Z13.89 Encounter for screening for other disorder (principal) ==

== ENCOUNTER 2025-01-13 10:47 | Outpatient (AMB) | payer MEDICARE, SELFPAY ==
--- NOTE | 2025-01-13 11:01 | AM.OFFVISNUR ---
Intake Visit Reasons: [facility] Allergies No Known Allergies [No Known Allergies*] Allergy (Verified 12/31/24 11:26) Office Meds Eligard (6 month) 45 mg (6 month) subcutaneous syringe Performing Provider: Gildardo Ferrari MD [place] [facility] Administered by: Shayan Angel LPN on 01/13/25 11:01 Dose Route Admin Location Dispensed Lot Number Expiration Date [facility] [employer] Tool [employer] 45 mg subcut left arm 45 mg [id number] 04/05/26 37878-261-08 [employer] Assessment & Plan Assessment & Plan Orders: Orders AMB Leuprolide Injection - Practice Supplied Today C61 - Malignant neoplasm of prostate Medications: New Eligard (6 month) (leuprolide acetate (6 month)) 45 mg subcut ONCE 1 ea 0RF NS C61 - Malignant neoplasm of prostate Coding
--- OUTSIDE RECORDS SUMMARY | 2025-01-13 12:15 | XMS_ITS | Patient Health Record ---
Author Organization 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 Plan Of Treatment Pending Test Test Name Order Date MRI ABD W&WO CONTRAST 03/20/2021 MRI ABD W&WO CONTRAST 07/20/2021 Insurance Providers Payer Name Payer Address Payer Phone Subscriber Number Group Number Insured Name Patient Relationship to Insured Coverage Start Date Coverage End Date MED[place]ARE [place] [address] [place] [address] [id number] GISELA MORGAN Self - patient is the insured MEDEX ATTN CLAIMS [address] [place] [address] [id number] GISELA MORGAN Self - patient is the insured Medical (General) History Medical History History ICD Code Denies [place],DM,CVA,Lung disease,renal dise ase anemia lymphocytosis Surgical History Surgery Date(Month/Year) ercp 2020 total hip replacement 2019 inguinal hernia 2018
== END 2025-01-13 11:22 | disposition home or self-care (01) ==
LOC: HO.HUSH 10:48
PROVIDERS: Visit Provider Urology
DX: C61 Malignant neoplasm of prostate (principal)

== ENCOUNTER → 2025-01-13 10:47 | Outpatient (BNVA) | payer MEDICARE, SELFPAY | PROVIDERS: Visit Provider Urology | DX: C61 Malignant neoplasm of prostate (principal) | CPT/HCPCS: 96402; J9217 ==

== ENCOUNTER 2025-03-25 14:00 | Outpatient (REF) | payer MEDICARE, SELFPAY ==
--- OUTSIDE RECORDS SUMMARY | 2025-03-25 14:09 | XMS_ITS | Patient Health Record ---
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 Plan Of Treatment Pending Test Test Name Order Date MRI ABD W&WO CONTRAST 03/20/2021 MRI ABD W&WO CONTRAST 07/20/2021 Insurance Providers Payer Name Payer Address Payer Phone Subscriber Number Group Number Insured Name Patient Relationship to Insured Coverage Start Date Coverage End Date [place] [address] [place] [address] [id number] GISELA MORGAN Self - patient is the insured MEDEX ATTN CLAIMS [address] [place] [address] [id number] GISELA MORGAN Self - patient is the insured Medical (General) History Medical History History ICD Code Denies [place],DM,CVA,Lung disease,renal dise ase anemia lymphocytosis Surgical History Surgery Date(Month/Year) ercp 2020 total hip replacement 2019 inguinal hernia 2018
[2025-03-25 15:47] LABS: Prostate Specific Antigen 1.04 ng/mL (<0.05-4.0)
== END 2025-03-25 14:01 | disposition home or self-care (01) ==
LOC: HO.LAB 14:00
PROVIDERS: Visit Provider Urology
DX: C61 Malignant neoplasm of prostate (principal); Z12.5 Encounter for screening for malignant neoplasm of prostate
CPT/HCPCS: 36415; 84153; 84403

== ENCOUNTER 2025-04-08 11:00 | Outpatient (AMB) | payer MEDICARE, SELFPAY ==
--- NOTE | 2025-04-08 11:11 | A.OFFVIS_ITS ---
Intake Visit Reasons: 3m follow up/ PSA/ Testo Intake Note: Patient is present for 3 mo follow up Urology Medication:NONE Antibiotic Allergy:NONE Blood Thinner:NONE Labs done 03/25/25 : PSA 1.04, Total testosterone :10 Demurrage Man Required: No Accompanied by: Self / Same As Patient Allergies No Known Allergies (No Known Allergies*) Allergy (Verified 04/08/25 11:12) HPI Comments Details: Dexter is a pleasant male. He is a patient of Dr. Palomares. He seen for the following urologic conditions - high-grade prostate cancer Three-month follow-up 03/29 1.0 T 10 Adequate hormonal control Continue shot in three-month GnRH 01/27 Prostate MRI 09/29 - 1.8 cm mass in the right peripheral zone extending from the mid gland to the apex as described, highly suspicious for clinically significant prostate carcinoma. No lymphadenopathy, no bone marrow changes. Previous diagnosis made from PSA spike at [facility] - PSA spike led to initiation of Biclutamide which reduced PSA. - No prostate biopsy performed; past reluctance based on perceived risk. PSA - 09/24 19, 11/27 2.3 on bicalutamide Prostate Cancer - Grade Group 5 - 09/2024 Initial therapy 18 month GnRH Histologic grade:Todd score: 9 (4+5) (left base medial, left apex medial, right base lateral and medial, right mid lateral and medial,and right apex lateral and medial), 8 (4+4) (left base lateral and left mid medial) % of pattern 4: 73% % of pattern 5: 27% Grade group: 5 and 4 Tumor quantitation: Number cores positive: 11 Total number of cores: 14 - % of tissue involved: 33 % Periprostatic fat inv.: Not identified Seminal vesicle inv.: Not identified Perineural inv.: Present Lymphatic and/or vascular invasion: Suspicious PFSH Medical History Severe malnutrition Pancreatic lesion Pancreatic mass Weight loss Arthritis Surgical History Status post left breast lumpectomy (12/23/23) History of endoscopic retrograde cholangiopancreatography Hx of hernia repair Hx of arthroscopic knee surgery History of cataract extraction History of hip replacement, total History of left inguinal hernia repair Family History Mother Ovarian cancer Father Prostate cancer CVA (cerebral vascular accident) Stenosis of artery Daughter Asthma Social History Household Members: Spouse Household Members Other:: Housing: Other Housing Other:: Assisted Living Facility in [place] Are you a primary career services coordinator to a significant other at home: No Do you presently have visiting nurse or other home services: Yes ([facility]) Alcohol intake: current Alcohol intake frequency: a few times a week Alcohol type: beer Patient Tobacco Use Status: Former Tobacco user Tobacco use type: Cigarette Cigarette Packs Per Day: 1 e-Cigarette/Vaping Use: Never Used Second Hand Smoke Exposure: No service: Yes Current occupational status: retired Cognitive needs: No Hearing needs: No Vision needs: Yes Review of Systems Const Denies chills and Denies fever(s) Card Reports no additional complaints and Denies syncope Resp Denies cough GI Denies abdominal pain and Denies heartburn Reports as per HPI and Denies change in libido Neuro Denies syncope Psych Denies change in libido Endo Denies change in libido Physical Exam Const General: cooperative, healthy appearing, comfortable and no acute distress Orientation/consciousness: patient oriented x3 HEENT Face and sinus: Yes normal facial exam Mouth: moist mucous membranes Neck Neck: Yes normal visual inspection, Yes full ROM and Yes trachea midline Chest Chest palpation & inspection: normal inspection of the chest Resp Effort & Inspection: normal respiratory effort, able to speak in complete sentences and no respiratory distress GI Inspection: Yes normal to inspection Back/Spine/Pelvis Cervical Spine: normal cervical lordosis Thoracic/Lumbar Spine: thoracic and lumbar spine normal to inspection Skin General skin exam: no rashes or lesions noted Neuro General: patient oriented x3, gait normal, tone normal and moves all extremities Extrem General: Yes normal to inspection and Yes capillary refill normal Assessment & Plan Assessment & Plan (1) Prostate cancer: Code(s): C61 - Malignant neoplasm of prostate Category: Medical Plan Three-month follow-up GnRH injection lab work Orders: Orders Testosterone, Total 3 Months C61 - Malignant neoplasm of prostate Prostate Specific Antigen 3 Months C61 - Malignant neoplasm of prostate Patient Instructions: This note is constructed using voice recognition software. While every effort has been made to ensure accuracy teaching associate errors may have been included. Imaging studies, laboratory and physical exam results were discussed and reviewed in detail. No major barriers to patient understanding were identified. An opportunity to ask questions regarding the treatment plan was provided. All questions were answered. The patient expressed understanding and agreement with the above treatment plan. The patient is aware they should contact our office by phone for worsening of their current condition or the appearance of new urologic symptoms. Compliance is encouraged with any medications and followup testing that is ordered. It is a privilege to participate in the urologic care of your patient. If you have any questions or concerns regarding treatment for the above conditions, or other urologic issues, please do not hesitate to contact me. The office telephone contact is [phone]. Sincerely, Dr Gildardo Ferrari MD, [facility] - Urology Compassionate Specialist Care for the Genitourinary System Coding Level of Care Code Est Pt Level 3 (03062) Complex EM visit Add On G2211 Diagnoses Prostate cancer C61
--- OUTSIDE RECORDS SUMMARY | 2025-04-08 12:37 | XMS_ITS | Patient Health Record ---
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 Plan Of Treatment Pending Test Test Name Order Date MRI ABD W&WO CONTRAST 03/20/2021 MRI ABD W&WO CONTRAST 07/20/2021 Insurance Providers Payer Name Payer Address Payer Phone Subscriber Number Group Number Insured Name Patient Relationship to Insured Coverage Start Date Coverage End Date [place]ARE OF [place] [address] [place] [address] [id number] GISELA MORGAN Self - patient is the insured MEDEX ATTN CLAIMS [address] [place] [address] [id number] GISELA MORGAN Self - patient is the insured Medical (General) History Medical History History ICD Code Denies [place],DM,CVA,Lung disease,renal dise ase anemia lymphocytosis Surgical History Surgery Date(Month/Year) ercp 2020 total hip replacement 2019 inguinal hernia 2018
== END 2025-04-08 11:32 | disposition home or self-care (01) ==
LOC: HO.HUSH 11:01
PROVIDERS: Visit Provider Urology
DX: C61 Malignant neoplasm of prostate (principal)
CPT/HCPCS: 99213; G2211

== ENCOUNTER → 2025-04-08 11:00 | Outpatient (BNVA) | payer MEDICARE, SELFPAY | PROVIDERS: Visit Provider Urology | DX: C61 Malignant neoplasm of prostate (principal) | CPT/HCPCS: 99212 ==

== ENCOUNTER 2025-04-09 09:46 | Outpatient (AMB) | payer MEDICARE, SELFPAY ==
--- NOTE | 2025-04-09 09:48 | A.OFFPC_ITS ---
Vital Signs 04/09/25 09:50 04/09/25 10:27 Height 6 ft 2 in Weight 151 lb BMI 19.4 BP 122/54 L 110/60 Blood Pressure Location Lt brachial Lt brachial Position Sitting Sitting Pulse 67 Pulse Source Pulse Oximeter Pulse Oximetry (%) 94 Oxygen Delivery Method Room Air Intake Visit Reasons: SAILAJA LAINER/6 mo follow up Toll Line Mechanic Required: No Accompanied by: Self / Same As Patient Allergies No Known Allergies (No Known Allergies*) Allergy (Verified 04/09/25 10:13) Medication List - Last Reconciled 04/09/25 by Smitha Cisneros PA-C calcium carbonate (Tums E-X) 300 mg PO BID PRN celecoxib (Celebrex) 200 mg PO DAILY latanoprost 0.005% 1 drp ophthalmic (eye) BEDTIME Tobacco use date assessed: 04/09/25 Fall risk assessment: No Falls in past year Last assessed Fall Risk: 04/09/25 Dental Screening Dental Screen Date: 04/09/25 Did you have a dental visit in the last 12 months?: Yes Did you have a dental problem in the last 6 months where you did not have access to dental care?: No Was dental information given to patient?: Patient has dentist HPI SAILAJA LAINER/6 mo follow up HPI Details 89 year old male with past medical histo ry of anemia and prostate cancer last seen 10/[address] Palomares coming in for SAILAJA. In review of the notes, patient was seen by Urology 04/2025 he will continue with GnRH injection and follow up in 3 months. Seen by Hematology/Oncology 12/2024 for pancreatic mass and underwent ERCP with Dr. Hansen and awaiting MRI and awaiting plan from Dr. Barber. He declined proceeding with further imaging and will continue to follow up with Dr. Hansen. Presenting with a wellness check and management of chronic conditions. Prostate cancer Currently managed with hormone therapy to prevent progression. Common bile duct obstruction Previously treated with ERCP, resulting in removal of the obstruction and stable condition since. eye doctor: yearly [facility] PSA: following with Urology [facility] Medical History Severe malnutrition Pancreatic lesion Pancreatic mass Weight loss Arthritis Surgical History Status post left breast lumpectomy (12/23/23) History of endoscopic retrograde cholangiopancreatography Hx of hernia repair Hx of arthroscopic knee surgery History of cataract extraction History of hip replacement, total History of left inguinal hernia repair Family History Mother Ovarian cancer Father Prostate cancer CVA (cerebral vascular accident) Stenosis of artery Daughter Asthma Social History Household Members: Spouse Household Members Other:: Housing: Other Housing Other:: Assisted Living Facility in [place] Are you a primary senior care manager to a significant other at home: No Do you presently have visiting nurse or other home services: Yes ([facility]) Alcohol intake: current Alcohol intake frequency: a few times a week Alcohol type: beer Patient Tobacco Use Status: Former Tobacco user Tobacco use type: Cigarette Cigarette Packs Per Day: 1 e-Cigarette/Vaping Use: Never Used Second Hand Smoke Exposure: No service: Yes Current occupational status: retired Cognitive needs: No Hearing needs: No Vision needs: Yes Questionnaire PHQ-9 Over the last 2 weeks, how often have you been bothered by any of the following problems? 1. Little interest or pleasure in doing things: not at all 2. Feeling down, depressed, or hopeless: not at all 3. Trouble falling or staying asleep, or sleeping too much: not at all 4. Feeling tired or having little energy: several days 5. Poor appetite or overeating: not at all 6. Feeling bad about yourself - or that you are a failure or have let yourself or your family down: not at all 7. Trouble concentrating on things, such as reading the newspaper or watching television: not at all 8. Moving or speaking so slowly that other people could have noticed. Or the opposite - being so fidgety or restless that you have been moving around a lot more than usual: not at all 9. Thoughts that you would be better off or of hurting yourself in some way: not at all Total score: 1 Depression Screening Interpretation: Negative Depression Screening Done: Yes Source: Developed by Drs. Ezio Flores, CandiceChemo Jo and colleagues, with an educational amari from [employer]. Thrive Questionnaire Date Thrive assessed: 10/09/24 I am a: Patient What is your living situation today?: I have a steady place to live Within the past 12 months, did the food you bought not last and you didn't have the money to get more?: I choose not to answer this question Within the past 12 months, did you worry whether your food would run out before you got money to buy more?: I choose not to answer this question Do you have trouble paying for medicines?: No Do you have trouble getting transportation to medical appointments?: No Do you have trouble paying your heating and electricity bill?: I choose not to answer this question Do you have trouble taking care of your child, family member or friend?: I choose not to answer this question Do you have trouble with day-to-day activities such as bathing, preparing meals, shopping, managing finances, etc.?: No Are you currently unemployed and looking for a job?: No Are you interested in more education?: I choose not to answer this question Please select the resources that you would like help with: None Currently or been in a relationship where the following occur: I choose not to answer THRIVE Score: 0 AUDIT C Alcohol Use Questionnaire (AUDIT-C) 1. How often do you have a drink containing alcohol?: 2-4 times a month 2. How many drinks containing alcohol do you have on a typical day when you are drinking?: 1 or 2 3. How often do you have six or more drinks on one occasion?: Never Total Score: 2 CIERRA-7 AMB Questionnaire CIERRA-7 Date CIERRA - 7 assessed: 10/09/24 Feeling nervous, anxious, or on edge: 0 = Not at all Not being able to stop or control worryin = Not at all Worrying too much about different things: 0 = Not at all Trouble relaxin = Not at all Being so restless that it is hard to sit still: 0 = Not at all Becoming easily annoyed or irritable: 0 = Not at all Feeling afraid as if something awful might happen: 0 = Not at all Total CIERRA-7 score (0-4 normal; 5-9 mild; 10-14 moderate; 15-21 severe): 0 Source: Developed by Drs. Ezio Flores, Candice Dangelo, Chemo Wren and colleagues, with an educational amari from [employer]. Review of Systems Const Denies body aches, Denies chills, Denies fever(s), Denies headache(s) and Denies poor appetite Eyes Reports no additional complaints ENT Denies dysphagia, Denies dizziness, Denies headache(s) and Denies odynophagia Card Denies chest pain, Denies syncope, Denies edema, Denies irregular heart rhythm, Denies lightheadedness and Denies dyspnea Resp Denies cough and Denies dyspnea GI Denies dysphagia, Denies nausea, Denies odynophagia and Denies vomiting Reports no additional complaints Musc Reports no additional complaints and Denies abnormal gait Skin/Breast Reports system reviewed and no additional complaints, except as documented Neuro Denies abnormal gait, Denies dizziness, Denies syncope and Denies headache(s) Psych Reports no additional complaints Physical exam (Primary Care) Vital Signs: Last Vital Signs Pulse 67 04/09/25 09:50 BP 110/60 04/09/25 10:27 Pulse Ox 94 04/09/25 09:50 Oxygen Delivery Method Room Air 04/09/25 09:50 BMI result Body Mass Index 19.4 Tobacco/Smoking Status: Tobacco use Status Tobacco use date assessed 04/09/25 04/09/25 09:56 Patient Tobacco Use Status Former Tobacco user 04/09/25 09:48 Tobacco use type Cigarette 04/09/25 09:48 e-Cigarette/Vaping Use Never Used 04/09/25 09:48 PHQ-9: PHQ-9 Score PHQ-9: Total score 1 04/09/25 10:14 Depression Screening Interpretation: Negative Thrive Assessment: Date of Thrive Assessment Date Thrive assessed 10/09/24 04/09/25 09:48 Currently or been in a relationship where the following occur: I choose not to answer Const General: cooperative, healthy appearing, comfortable and no acute distress Orientation/consciousness: patient oriented x3 HENMT Head: Yes normocephalic Ears: hearing grossly normal bilaterally General nose exam: Normal external nose present Eyes General: appearance normal, both eyes and all related structures Conjunctivae: conjunctivae normal Neck Neck: Yes full ROM and Yes no lymphadenopathy Resp Effort & Inspection: normal respiratory effort Auscultation: clear to auscultation bilaterally, no crackles, no rales, no rhonchi and no wheezes Cardio Rate: regular rate Rhythm: regular rhythm Skin General skin exam: no rashes or lesions noted Neuro General: patient oriented x3 Gait exam (Neuro): Normal gait present Extrem General: Yes normal to inspection, Yes full ROM and No edema Psych Affect: normal affect Attitude: cooperative Insight: Good insight present (Psych) Judgement: Good judgement present (Psych) Coding Level of Care Code Est Pt Level 3 (10444) Diagnoses Common bile duct obstruction K83.1 Anemia D64.9 Prostate cancer C61 Assessment & Plan Assessment & Plan (1) Common bile duct obstruction: Code(s): K83.1 - Obstruction of bile duct Category: Medical Plan: The obstruction was successfully removed via ERCP, and the patient has been stable since the procedure. (2) Anemia: Code(s): D64.9 - Anemia, unspecified Category: Medical Plan: Continue to monitor with blood workand continue to follow with hematology. (3) Prostate cancer: Code(s): C61 - Malignant neoplasm of prostate Category: Medical Plan: The patient is undergoing hormone therapy to manage prostate cancer, aiming to keep the condition stable. Plan This note was constructed using voice recognition software. While every effort has been made to ensure accuracy and agricultural equipment salesperson, still areas may have been included sometimes these areas may affect the content or meeting of the given symptoms. Total time spent caring for the patient today was 30 minutes. This includes time spent before the visit reviewing the chart, time spent during the visit, and time spent after the visit and documentation. Patient was informed and verbally consented to the use of an ambient scribe for clinic note documentation during this visit. Orders: Orders Vitamin B12 and Folate Today Z13.21 - Encounter for screening for nutritional disorder Lipid Panel Today Z13.220 - Encounter for screening for lipoid disorders TSH reflex Free T4 Today Z13.29 - Encounter for screening for other suspected endocrine disorder Vitamin D 25-OH Total Today Z13.21 - Encounter for screening for nutritional disorder
[2025-04-09 09:50] VITALS: BP 122/54; PULSE 67; O2SAT 94; BMI 19.4
[2025-04-09 10:27] VITALS: BP 110/60
== END 2025-04-09 10:36 | disposition home or self-care (01) ==
LOC: HO.HMCH 09:47
DX: K83.1 Obstruction of bile duct (principal); D64.9 Anemia, unspecified; C61 Malignant neoplasm of prostate

== ENCOUNTER → 2025-04-09 09:46 | Outpatient (BNVA) | payer MEDICARE, SELFPAY | PROVIDERS: PCP Internal Medicine | DX: K83.1 Obstruction of bile duct (principal); D64.9 Anemia, unspecified; C61 Malignant neoplasm of prostate | CPT/HCPCS: 96127; 99212 ==

== ENCOUNTER 2025-06-16 14:21 | Outpatient (REF) | payer MEDICARE, SELFPAY ==
[2025-06-16 15:43] LABS: Prostate Specific Antigen 0.75 ng/mL (<0.05-4.0)
--- OUTSIDE RECORDS SUMMARY | 2025-06-16 17:50 | XMS_ITS | Patient Health Record ---
Author Organization [facility] Address [address] [place] [phone] Care Team Providers Care Flight Tower Dispatcher Name Role Phone Jelani CANTOR, Shahzad Primary Care Provider Unavaila Atul Mckay Jr Unavailable HÉCTOR STEARNS Unavailable Unavailable Allergies No Known Allergies Reason For Referral No Information Medications Medication SIG (Take, Route, Fr equency, Duration) Notes Start Date End Date Status Celecoxib 200 MG Oral; Duration: 90 Active Lumigan 0.01 % Ophthalmic; Duration: 90 Active Immunizations Vaccine Route Administration Date [...] Status W/U Status Risk Notes Problem Constipation (41400810) Constipation (K59.00) Active confirmed Problem Gastrointestinal tract problem (669684814) Abn findings-GI tract (R93.3) Active confirmed Problem Biliary stricture (386798147) 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) Active confirmed Problem Common bile duct stone (457764008) Common bile duct stone (K80.50) Active confirmed Problem Anomalies of pancreas (923810721) 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 Plan Of Treatment Pending Test Test Name Order Date MRI ABD W&WO CONTRAST 03/20/2021 MRI ABD W&WO CONTRAST 07/20/2021 Insurance Providers Payer Name Payer Address Payer Phone Subscriber Number Group Number Insured Name Patient Relationship to Insured Coverage Start Date Coverage End Date MED[place]ARE OF [place] [address] [place] [address] [id number] GISELA MORGAN Self - patient is the insured MEDEX ATTN CLAIMS [address] [place] [address] [id number] GISELA MORGAN Self - patient is the insured Medical (General) History Medical History History ICD Code Denies [place],DM,CVA,Lung disease,renal dise ase anemia lymphocytosis Surgical History Surgery Date(Month/Year) ercp 2020 total hip replacement 2019 inguinal hernia 2018
== END 2025-06-16 14:22 | disposition home or self-care (01) ==
LOC: HO.LAB 14:21
PROVIDERS: Visit Provider Urology
DX: C61 Malignant neoplasm of prostate (principal); Z12.5 Encounter for screening for malignant neoplasm of prostate
CPT/HCPCS: 36415; 84153; 84403

== ENCOUNTER 2025-07-09 13:06 | Outpatient (AMB) | payer MEDICARE, SELFPAY ==
--- NOTE | 2025-07-09 13:22 | MHC.OFFVIS ---
Intake Visit Reasons: GnRH/PSA/Testo(set) Intake Note: Reason for Visit: Eligard Injection/Labs Urology Meds: None Blood Thinners: None Labs: PSA- 0.75 Testosterone- 12 (06/16/25) Imaging: None Last PVR: None Electric Blasting Cap Assembler Required: No Accompanied by: Self / Same As Patient Allergies No Known Allergies (No Known Allergies*) Allergy (Verified 07/09/25 13:25) HPI Comments Details: Dexter is a pleasant male. He is a patient of Dr. Palomares. He seen for the following urologic conditions - high-grade prostate cancer Three-month follow-up 03/29 1.0 T , 06/29 0.75 12 Adequate hormonal control Denies hot flashes Encourage Citracal - calcium supplementation Frax caculator - 19% major, 13% hip. Above threshold for initiating therapy. GnRH 01/27, 07/29 Prostate MRI 09/29 - 1.8 cm mass in the right peripheral zone extending from the mid gland to the apex as described, highly suspicious for clinically significant prostate carcinoma. No lymphadenopathy, no bone marrow changes. Previous diagnosis made from PSA spike at [facility] - PSA spike led to initiation of Biclutamide which reduced PSA. - No prostate biopsy performed; past reluctance based on perceived risk. PSA - 09/24 19, 11/27 2.3 on bicalutamide Prostate Cancer - Grade Group 5 - 09/2024 Initial therapy 18 month GnRH Histologic grade:Sherman score: 9 (4+5) (left base medial, left apex medial, right base lateral and medial, right mid lateral and medial,and right apex lateral and medial), 8 (4+4) (left base lateral and left mid medial) % of pattern 4: 73% % of pattern 5: 27% Grade group: 5 and 4 Tumor quantitation: Number cores positive: 11 Total number of cores: 14 - % of tissue involved: 33 % Periprostatic fat inv.: Not identified Seminal vesicle inv.: Not identified Perineural inv.: Present Lymphatic and/or vascular invasion: Suspicious PFSH Medical History Severe malnutrition Pancreatic lesion Pancreatic mass Weight loss Arthritis Surgical History Status post left breast lumpectomy (12/23/23) History of endoscopic retrograde cholangiopancreatography Hx of hernia repair Hx of arthroscopic knee surgery History of cataract extraction History of hip replacement, total History of left inguinal hernia repair Family History Mother Ovarian cancer Father Prostate cancer CVA (cerebral vascular accident) Stenosis of artery Daughter Asthma Social History Household Members: Spouse Household Members Other:: Housing: Other Housing Other:: Assisted Living Facility in [place] Are you a primary acute care registered nurse to a significant other at home: No Do you presently have visiting nurse or other home services: Yes ([facility]) Alcohol intake: current Alcohol intake frequency: a few times a week Alcohol type: beer Patient Tobacco Use Status: Former Tobacco user Tobacco use type: Cigarette Cigarette Packs Per Day: 1 e-Cigarette/Vaping Use: Never Used Second Hand Smoke Exposure: No service: Yes Current occupational status: retired Cognitive needs: No Hearing needs: No Vision needs: Yes Review of Systems Const Denies chills and Denies fever(s) Card Reports no additional complaints and Denies syncope Resp Denies cough GI Denies abdominal pain and Denies heartburn Reports as per HPI and Denies change in libido Neuro Denies syncope Psych Denies change in libido Endo Denies change in libido Physical Exam Const General: cooperative, healthy appearing, comfortable and no acute distress Orientation/consciousness: patient oriented x3 HEENT Face and sinus: Yes normal facial exam Mouth: moist mucous membranes Neck Neck: Yes normal visual inspection, Yes full ROM and Yes trachea midline Chest Chest palpation & inspection: normal inspection of the chest Resp Effort & Inspection: normal respiratory effort, able to speak in complete sentences and no respiratory distress GI Inspection: Yes normal to inspection Back/Spine/Pelvis Cervical Spine: normal cervical lordosis Thoracic/Lumbar Spine: thoracic and lumbar spine normal to inspection Skin General skin exam: no rashes or lesions noted Neuro General: patient oriented x3, gait normal, tone normal and moves all extremities Extrem General: Yes normal to inspection and Yes capillary refill normal Office Meds Eligard (6 month) 45 mg (6 month) subcutaneous syringe Performing Provider: Gildardo Ferrari MD [facility] [place] Administered by: Shayan Angel LPN on 07/09/25 13:42 Dose Route Admin Location Dispensed Lot Number Expiration Date NDC Psychology Assistant 45 mg subcut left arm 45 mg [id number] 12/03/25 91631-638-58 [employer] Total Dispensed Waste 45 mg 0 % Assessment & Plan Assessment & Plan (1) Prostate cancer: Code(s): C61 - Malignant neoplasm of prostate Category: Medical Plan Six-month follow-up [facility], lab work Orders: Orders AMB Leuprolide Injection - Practice Supplied Today C61 - Malignant neoplasm of prostate Prostate Specific Antigen 5 Months C61 - Malignant neoplasm of prostate Testosterone, Total 5 Months C61 - Malignant neoplasm of prostate Patient Instructions: This note is constructed using voice recognition software. While every effort has been made to ensure accuracy plant scientist errors may have been included. Imaging studies, laboratory and physical exam results were discussed and reviewed in detail. No major barriers to patient understanding were identified. An opportunity to ask questions regarding the treatment plan was provided. All questions were answered. The patient expressed understanding and agreement with the above treatment plan. The patient is aware they should contact our office by phone for worsening of their current condition or the appearance of new urologic symptoms. Compliance is encouraged with any medications and followup testing that is ordered. It is a privilege to participate in the urologic care of your patient. If you have any questions or concerns regarding treatment for the above conditions, or other urologic issues, please do not hesitate to contact me. The office telephone contact is [phone]. Sincerely, Dr Gildardo Ferrari MD, [facility] - Urology Compassionate Specialist Care for the Genitourinary System Coding Level of Care Code Est Pt Level 3 (08183) Complex visit Add On G2211 Diagnoses Prostate cancer C61
== END 2025-07-09 13:56 | disposition home or self-care (01) ==
PROVIDERS: Visit Provider Urology
DX: C61 Malignant neoplasm of prostate (principal)
CPT/HCPCS: 99213

== ENCOUNTER → 2025-07-09 13:06 | Outpatient (BNVA) | payer MEDICARE, SELFPAY | PROVIDERS: Visit Provider Urology | DX: C61 Malignant neoplasm of prostate (principal) | CPT/HCPCS: 96402; 99212; J9217 ==